=== PATIENT | female | born 1940 | race Caucasian/White ===

== ENCOUNTER 2023-03-13 07:23 | Outpatient (REF) | payer MEDICARE, SELFPAY ==
--- NOTE | ~2023-03-13 | XR_ITS ---
EXAMINATION: XR LUMBOSACRAL SPINE CLINICAL INFORMATION: Lower back pain. COMPARISON: None available. TECHNIQUE: AP and lateral views of the lumbar spine and lateral view of the lumbosacral junction. FINDINGS: There is bony demineralization. There is a moderate lumbar levoscoliosis. There is multi-level marked degenerative disc disease extending from T7-T8 through L5-S1, with some sparing of the T11-T12 disc space, which is well-maintained. At L3-L4, there is a 6 mm anterolisthesis. No acute fracture or spondylolisthesis is seen. There is well-maintained alignment status-post L4-L5 posterior fusion, with intact posterior fixator rods and pedicular screws. No hardware failure or loosening is seen. There is multi-level thoracolumbar spondylosis. The posterior elements are intact. 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 The paravertebral soft tissues are unremarkable. XR/XR lumbar spine 2-3V IMPRESSION: 1. There is multi-level marked thoracolumbar degenerative disc disease and spondylosis. Particular note is made of marked disc space narrowing and a 6 mm anterolisthesis at L3-L4. 2. There is well-maintained alignment status-post L4-L5 posterior fusion. No hardware failure or loosening is seen. 3. There is a moderate lumbar levoscoliosis.
--- NOTE | ~2023-03-13 | XR_ITS ---
EXAMINATION: XR KNEE, LEFT CLINICAL INFORMATION: Pain. COMPARISON: None available. TECHNIQUE: AP, lateral and sunrise views of the left knee are submitted. FINDINGS: Prosthetic components of the total knee arthroplasty are appropriately aligned without periprosthetic fracture or abnormal lucency. No component migration. No joint effusion. XR/XR knee LT 3V IMPRESSION: Appropriate alignment of the left total knee arthroplasty without evidence of complications.
--- NOTE | ~2023-03-13 | XR_ITS ---
EXAMINATION: XR HIP, LEFT CLINICAL INFORMATION: Pain. COMPARISON: None available. TECHNIQUE: AP and frog-leg lateral views of the left hip. FINDINGS: Prosthetic components of the bilateral total hip arthroplasties are appropriately aligned without periprosthetic fracture or abnormal lucency. No component migration. There are multiple pelvic phleboliths. Soft tissues are normal. XR/XR hip LT min 2V IMPRESSION: Appropriate alignment of the bilateral total hip arthroplasties, without surrounding abnormalities.
== END 2023-03-13 07:24 | disposition home or self-care (01) ==
LOC: HO.HOSX 07:23
PROVIDERS: Visit Provider Orthopaedic Surgery
DX: M25.562 Pain in left knee (principal); M25.552 Pain in left hip; M54.50 Low back pain, unspecified
CPT/HCPCS: 72100; 73502; 73562; 99212

== ENCOUNTER 2023-03-13 08:54 | Outpatient (AMB) | payer MEDICARE, SELFPAY ==
--- NOTE | 2023-03-13 09:05 | A.OFFVIS_ITS ---
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 Kapadia for her left leg/ knee pain. States she went to a concert and was sitting for a few hours. Garwin pain and numbness in leg when she got up. Hx of B/L knee replacement with Dr Kapadia in 2013. The patient has also undergone bilateral total hip replacement surgeries. The patient has undergone 2 low back surgeries in the past. The 1st was performed by Dr. Ferguson. The most recent surgery occurred approximately 2 years ago and was performed by Dr. Bonds. The patient does walk with a cane. She has taken Tylenol and anti-inflammatory medicines which gave her mild relief. She has done physical therapy exercises which gave her minimal relief. She is due to begin acupuncture treatments in the near future. Medication List - Last Reconciled 03/13/23 by Daniel Kapadia MD atorvastatin 40 mg PO DAILY carvedilol 6.25 mg PO BID dulaglutide (Trulicity) 3 mg subcut QWEEK fenofibrate 160 mg PO DAILY flash glucose sensor (FreeStyle Renaldo 2 Sensor kit) As directed gabapentin 100 mg PO BEDTIME glipizide 10 mg PO BID hydrochlorothiazide 25 mg PO DAILY hydrocortisone 2.5% appl topical losartan 100 mg PO DAILY nitrofurantoin monohyd/m-cryst 100 mg 1 cap PO BID omeprazole 20 mg PO DAILY Physical Exam Vital Signs: BMI result Body Mass Index 31.4 Const Other: Well-nourished well-developed very friendly female awake alert and oriented x3 in no acute distress Back/Spine/Pelvis Other: Low back examination shows left-sided paraspinal muscle tenderness, pain with range of motion, positive straight leg raise test on the left at 70 degrees Extrem Other: Bilateral lower extremity examination shows good capillary refill, no skin lesions noted, normal sensation light touch Bilateral hip examination shows that the surgical incisions are well healed, no erythema, minimal discomfort with range of motion, no tenderness over her bilateral bursa Bilateral knee examination shows that the surgical incisions are well healed, no erythema, full active extension and flexion to 120 degrees, her patellae track well Results Reviewed Results Reviewed: X-rays of the patient's lumbar spine taken today show a lumbar fusion with moderate to severe degenerative disc disease superior to the fusion, no acute bony abnormalities X-rays of the patient's left knee taken today show a total knee arthroplasty good position with no signs of loosening X-rays of the patient's left hip taken today show total hip arthroplasty in good position with no signs of loosening, no acute bony Assessment & Plan Assessment & Plan (1) Low back pain: Code(s): M54.50 - Low back pain, unspecified Plan Ms. Springer presents with low back pain which radiates into her left leg most likely due to degenerative disc disease versus possible lumbar stenosis. I had a lengthy discussion with the patient regarding the treatment options. The patient does not wish to get another MRI at this point. She does not wish to be real evaluated by the Neurosurgery team. She wishes to continue with her home exercise program and activity modifications. I did give her a prescription for a Medrol Dosepak to help with her symptoms. I will see her back in 2 months time for repeat clinical examination. She will contact me prior to that time should her symptoms worsen in any way. Feel free to call me at any time should questions regarding her management arise. I spent 25 minutes in reviewing the patient's records and imaging studies, seeing the patient and documenting in the medical record. Orders: Orders XR lumbar spine 2-3V Today M54.50 - Low back pain, unspecified XR hip LT min 2V Today M25.552 - Pain in left hip XR knee LT 3V Today M25.562 - Pain in left knee Medications: New methylprednisolone (Medrol (Marky)) PO PER PKG DIR 21 ea 0RF Coding Level of Care Code Est Pt Level 2 (61482) Diagnoses Low back pain M54.50
[2023-03-13 09:19] VITALS: BMI 31.4
== END 2023-03-13 09:38 | disposition home or self-care (01) ==
PROVIDERS: PCP Family Medicine; Visit Provider Orthopaedic Surgery
DX: M54.50 Low back pain, unspecified (principal)
CPT/HCPCS: 99212

== ENCOUNTER 2023-05-15 10:31 | Outpatient (AMB) | payer MEDICARE, SELFPAY ==
--- NOTE | 2023-05-15 10:32 | MHC.OFFVIS ---
Intake Intake Visit Reasons: OV-Left leg pain, below the knee-F/U Intake Note: This is an 82 year old female patient who presents for a follow up of her chronic low back pain. Patient states that she has recently started seeing an clinical trials data coordinator. She states that the treatments have given her mild relief. She does go for the treatments once per week. She continues to take gabapentin at night which gives her mild relief. Allergies acetaminophen [From Tylox] Allergy (Mild, Verified 05/15/23 10:43) unknown lisinopril Allergy (Mild, Verified 05/15/23 10:43) unknown oxycodone [From Tylox] Allergy (Mild, Verified 05/15/23 10:43) unknown Medication List - Last Reconciled 05/15/23 by Terri Orellana RN atorvastatin 40 mg PO DAILY carvedilol 6.25 mg PO BID dulaglutide (Trulicity) 3 mg subcut QWEEK fenofibrate 160 mg PO DAILY flash glucose sensor (FreeStyle Renaldo 2 Sensor kit) As directed gabapentin 100 mg PO BEDTIME glipizide 10 mg PO BID hydrochlorothiazide 25 mg PO DAILY hydrocortisone 2.5% appl topical insulin admin supplies As directed losartan 100 mg PO DAILY methylprednisolone (Medrol (Marky)) PO PER PKG DIR nitrofurantoin monohyd/m-cryst 100 mg 1 cap PO BID omeprazole 20 mg PO DAILY Physical Exam Const Other: Well-nourished well-developed very friendly female awake alert and oriented x3 in no acute distress Back/Spine/Pelvis Other: Low back examination shows bilateral paraspinal muscle tenderness, pain with range of motion, positive straight leg raise test bilaterally at 70 degrees Results Reviewed Results Reviewed: X-rays of the patient's lumbar spine show hardware from a previous fusion which is in good position, no signs of loosening, moderate to severe degenerative disc disease cephalad to the fusion Assessment & Plan Assessment & Plan (1) Low back pain: Code(s): M54.50 - Low back pain, unspecified Plan Ms. Springer presents with chronic low back pain due to degenerative disc disease as well as possible lumbar stenosis. I had a lengthy discussion with the patient regarding the treatment options. She does not wish to get MRI at this point. She will continue with her acupuncture treatments. I did increase her gabapentin as per her request. She will contact me prior to her follow-up appointment in 3 months should her symptoms worsen in any way. Feel free to call me at any time should questions regarding her orthopedic management arise. I spent 22 minutes in reviewing the patient's records and imaging studies, seeing the patient and documenting in the medical record. Medications: Changed From gabapentin 100 mg PO BEDTIME To gabapentin 200 mg (2 x 100 mg) PO BEDTIME 60 caps 3RF Coding Level of Care Code Est Pt Level 2 (23402) Diagnoses Low back pain M54.50
== END 2023-05-15 11:03 | disposition home or self-care (01) ==
PROVIDERS: PCP Family Medicine; Visit Provider Orthopaedic Surgery
DX: M54.50 Low back pain, unspecified (principal)
CPT/HCPCS: 99212

== ENCOUNTER → 2023-05-15 10:31 | Outpatient (BNVA) | payer MEDICARE, SELFPAY | PROVIDERS: PCP Family Medicine; Visit Provider Orthopaedic Surgery | DX: M54.50 Low back pain, unspecified (principal) | CPT/HCPCS: 99212 ==

== ENCOUNTER 2023-10-21 11:34 | Outpatient (AMB) | payer MEDICARE, SELFPAY ==
[2023-10-21 11:35] VITALS: BMI 31.4
--- NOTE | 2023-10-21 11:35 | A.OFFVIS_ITS ---
Intake Vital Signs 10/21/23 11:35 Height 4 ft 9 in Weight 145 lb BMI 31.4 Intake Visit Reasons: OV-Left Knee pain Intake Note: Alon is a 82 year old female who presents with complaints of intermittent discomfort in both of her knees after undergoing bilateral total knee replacement surgeries approximately 10 years ago. She denies any fevers or chills. She does walk with a cane when she is out of her home. The patient has also undergone bilateral total hip replacement surgeries as well as low back surgery by Dr. Bonds. She continues to walk for exercise. She does walk 2- 3000 steps several days per week. She denies any locking or giving way. She does not take any medicines for discomfort. Allergies acetaminophen [From Tylox] Allergy (Mild, Verified 10/21/23 11:48) unknown lisinopril Allergy (Mild, Verified 10/21/23 11:48) unknown oxycodone [From Tylox] Allergy (Mild, Verified 10/21/23 11:48) unknown Medication List - Last Reconciled 10/21/23 by Daniel Kapadia MD albuterol sulfate 90 mcg/actuation inhalation atorvastatin 40 mg PO DAILY carvedilol 6.25 mg PO BID dulaglutide (Trulicity) 3 mg subcut QWEEK fenofibrate 160 mg PO DAILY flash glucose sensor (FreeStyle Renaldo 2 Sensor kit) As directed gabapentin 200 mg (2 x 100 mg) PO BEDTIME glipizide 10 mg PO BID glipizide 5 mg PO BID hydrochlorothiazide 25 mg PO DAILY hydrocortisone 2.5% appl topical insulin admin supplies As directed insulin glargine U-300 conc (Toujeo Max U-300 SoloStar) 30 units subcut BEDTIME losartan 100 mg PO DAILY methylprednisolone (Medrol (Marky)) PO PER PKG DIR nitrofurantoin monohyd/m-cryst 100 mg 1 cap PO BID omeprazole 20 mg PO DAILY PFSH Surgical History (Updated 10/21/23 @ 11:45 by Ginna Richard CMA) History of hip surgery History of hip surgery Hx of knee surgery History of back surgery History of left knee surgery (~2013) Social History (Updated 10/21/23 @ 11:43 by Ginna Richard CMA) Patient Tobacco Use Status: Never used Tobacco Current occupational status: retired Current occupation: Left hand dominate Physical Exam Vital Signs: BMI result Body Mass Index 31.4 Const Other: Well-nourished well-developed very friendly female awake alert and oriented x3 in no acute distress Extrem Other: Bilateral lower extremity examination shows good capillary refill, no skin lesions noted, normal sensation light touch Bilateral knee examination shows that the surgical incisions are well healed, no erythema, full active extension and flexion 120 degrees, her patellae track well Assessment & Plan Assessment & Plan (1) Bilateral knee pain: Code(s): M25.561 - Pain in right knee; M25.562 - Pain in left knee Plan Ms. Springer presents with intermittent discomfort in both of his knees most likely due to scar tissue after undergoing bilateral total knee replacement surgeries as well as overuse and the aging process. Activity modifications were discussed at length with the patient. The patient will also continue with her home stretching program. She will contact me prior to her follow-up appointment in 3 months should her symptoms worsen in any way. Feel free to call me at any time should questions regarding her orthopedic management arise. I spent 22 minutes in reviewing the patient's records and imaging studies, seeing the patient and documenting in the medical record. Coding Level of Care Code Est Pt Level 2 (10349) Diagnoses Bilateral knee pain M25.561; M25.562
== END 2023-10-21 12:07 | disposition home or self-care (01) ==
PROVIDERS: PCP Family Medicine; Visit Provider Orthopaedic Surgery
DX: M25.561 Pain in right knee (principal); M25.562 Pain in left knee
CPT/HCPCS: 99213

== ENCOUNTER → 2023-10-21 11:34 | Outpatient (BNVA) | payer MEDICARE, SELFPAY | PROVIDERS: PCP Family Medicine; Visit Provider Orthopaedic Surgery | DX: M25.561 Pain in right knee (principal); M25.562 Pain in left knee; Z96.653 Presence of artificial knee joint, bilateral; Z96.643 Presence of artificial hip joint, bilateral | CPT/HCPCS: 99212 ==

== ENCOUNTER 2023-11-19 13:45 | Outpatient (AMB) | payer MEDICARE, SELFPAY ==
[2023-11-19 13:59] VITALS: BMI 31.4
--- NOTE | 2023-11-19 13:59 | A.OFFVIS_ITS ---
Vital Signs 11/19/23 13:59 Height 4 ft 9 in Weight 145 lb BMI 31.4 Intake Visit Reasons: nprob-Lt hand ganglion cyst Intake Note: Alon 83 yr old - hand dominant female presents today for a new problem visit for her left hand ganglion cyst. States cyst is on her radial aspect of wrist and she noticed its growth since July 2023. Reports she has pain and discomfort when using her cane or applying pressure. States she would like to discuss aspiration vs surgery. Denies numbness or tingling. Allergies acetaminophen [From Tylox] Allergy (Mild, Verified 11/19/23 14:05) unknown lisinopril Allergy (Mild, Verified 11/19/23 14:05) unknown oxycodone [From Tylox] Allergy (Mild, Verified 11/19/23 14:05) unknown HPI HPI nprob-Lt hand ganglion cyst: Details: Alon is an 83 year old left hand dominant Diabetic woman who presents with chief complaint of left radial wrist pain, and an associated mass She reports having a mass on her left radial wrist, and says this has grown in size over the last 4 months. She has pain on the radial aspect of her left wrist when trying to use her cane in her left hand. She denies any numbness or tingling. She denies any prior treatment options. She is a Diabetic, and says this is well-controlled [facility] Surgical History History of hip surgery History of hip surgery Hx of knee surgery History of back surgery History of left knee surgery (~2013) Social History Patient Tobacco Use Status: Never used Tobacco Current occupational status: retired Current occupation: Left hand dominate Review of Systems Const All systems reviewed & are unremarkable except as noted in HPI and below Physical Exam Vital Signs: BMI result Body Mass Index 31.4 Const General: cooperative, healthy appearing and no acute distress Orientation/consciousness: patient oriented x3 HEENT Head: Yes normocephalic and Yes atraumatic Eyes EOM: EOMs intact bilaterally Resp Effort & Inspection: normal respiratory effort and able to speak in complete sentences Cardio Jugular venous distension: no JVD Skin General skin exam: turgor normal Rashes: no rashes Neuro General: patient oriented x3 Extrem Other: Evaluation of Left Upper Extremity: The patient is alert, oriented, and in no acute distress Neuro: Median, Ulnar, Radial nerves motor and sensory intact and sensation is normal to the tips of all digits Vascular: Cap refill brisk ROM: She can make a fist and extend all her digits Skin: No lacerations or abrasions. General: No Ecchymosis. No Erythema or evidence of infection. There is a soft mass or fullness essentially right over the left snuffbox. This appears most consistent with a possible lipoma as opposed to a ganglion cyst. It is not tender and is not what is bothering this patient. What is bothering her the most is her area of maximal tenderness over the 1st dorsal compartment Positive Jordin test on the left Negative Jordin test on the right Psych Appearance: grossly normal Affect: normal affect Attitude: cooperative Office Procedures Fracture Care Details: No fracture, injection Fracture Billing Code: Fracture Billing Code Assessment & Plan Assessment & Plan (1) De Quervain's tenosynovitis, left: Code(s): M65.4 - Radial styloid tenosynovitis [de Quervain] Category: Medical (2) Diabetes mellitus: Code(s): E11.9 - Type 2 diabetes mellitus without complications Category: Medical Plan Assessment & Plan: 1. Left De Quervains Tenosynovitis I educated her about this condition I discussed operative & non-operative treatment options The patient would like to proceed with an injection I discussed activity modification, she should limit or avoid any heavy or repetitive pinching, gripping, or scissoring activities She was fitted for a Comfort Cool brace to wear with daily activity. Injection #1: The risks and benefits of a steroid injection including but not limited to risk of damage to blood vessels, nerves, tendons, infection, skin bleaching, failure to improve symptoms, increased pain, and possible need for further injections or other intervention were discussed with the patient and the patient wishes to proceed with the steroid injection. Once consent was obtained, I sterilely prepped the area over the 1st dorsal compartment of the left thumb. I then injected the 1st dorsal compartment with a combination of 1 mL of dexamethasone (4mg/ml), and 1% lidocaine. The patient tolerated the procedure well with no complications and good resolution of their symptoms prior to leaving clinic. If the patient continues to have pain 6-8 weeks following this injection, they may call to schedule appointment to discuss alternative treatment options She will follow up prn Scribed for Ana Beasley MD by Dipak Rachel, medical malpractice paralegal, on 11/19/23 at 2:30 PM, EST. Coding Level of Care Code New Pt Level 3 (17719) Diagnoses De Quervain's tenosynovitis, left M65.4 Diabetes mellitus E11.9 CPT Codes Fracture Care - Fracture Billing Code: Fracture Billing Code ([id number])
== END 2023-11-19 15:10 | disposition home or self-care (01) ==
PROVIDERS: PCP Family Medicine; Visit Provider Orthopaedic Surgery
DX: M65.4 Radial styloid tenosynovitis [de Quervain] (principal); E11.9 Type 2 diabetes mellitus without complications
CPT/HCPCS: 20550; 99203

== ENCOUNTER → 2023-11-19 13:45 | Outpatient (BNVA) | payer MEDICARE, SELFPAY | PROVIDERS: PCP Family Medicine; Visit Provider Orthopaedic Surgery | DX: M65.4 Radial styloid tenosynovitis [de Quervain] (principal); E11.9 Type 2 diabetes mellitus without complications | CPT/HCPCS: 20550; 99202; J1100 ==

== ENCOUNTER 2024-01-29 09:14 | Outpatient (REF) | payer MEDICARE, SELFPAY ==
--- NOTE | ~2024-01-29 | XR_ITS ---
EXAMINATION: XR KNEE, LEFT CLINICAL INFORMATION: Knee pain. COMPARISON: X-ray 03/13/2023. TECHNIQUE: Four views of the left knee. FINDINGS: Status post total knee arthroplasty with appropriate alignment of the prosthetic components. No periprosthetic fracture or abnormal lucency is identified. Trace suprapatellar joint fluid. XR/XR knee LT 3V IMPRESSION: Appropriate, stable position and alignment of the left total knee arthroplasty without radiographic evidence of complications. Study is assigned for dictation on February 19, 2024
== END 2024-01-29 09:15 | disposition home or self-care (01) ==
LOC: HO.HOSX 09:14
PROVIDERS: Visit Provider Orthopaedic Surgery
DX: M25.562 Pain in left knee (principal); Z96.653 Presence of artificial knee joint, bilateral; Z96.643 Presence of artificial hip joint, bilateral
CPT/HCPCS: 73562; 99212

== ENCOUNTER 2024-01-29 13:58 | Outpatient (AMB) | payer MEDICARE, SELFPAY ==
--- NOTE | 2024-01-29 14:21 | MHC.OFFVIS ---
Vital Signs 01/29/24 14:23 Height 4 ft 9 in Weight 145 lb BMI 31.4 Intake Visit Reasons: ov-Lt knee pain Intake Note: Alon is a 82 year old female who presents with complaints of intermittent discomfort in both of her knees after undergoing bilateral total knee replacement surgeries approximately 10 years ago. She denies any fevers or chills. She does walk with a cane when she is out of her home. The patient has also undergone bilateral total hip replacement surgeries as well as low back surgery by Dr. Bonds. She states that her most recent back surgery was approximately 5 years ago. She does have intermittent pain in her low back as well. She continues to walk for exercise. She does walk 2-3000 steps several days per week. She denies any locking or giving way. She takes Tylenol, Advil and gabapentin for her discomfort which gave her mild relief. She wishes to hold off on further surgeries if at all possible. Allergies acetaminophen [From Tylox] Allergy (Mild, Verified 01/29/24 14:23) unknown lisinopril Allergy (Mild, Verified 01/29/24 14:23) unknown oxycodone [From Tylox] Allergy (Mild, Verified 01/29/24 14:23) unknown [facility] Surgical History History of hip surgery History of hip surgery Hx of knee surgery History of back surgery History of left knee surgery (~2013) Social History Patient Tobacco Use Status: Never used Tobacco Current occupational status: retired Current occupation: Left hand dominate Physical Exam Vital Signs: BMI result Body Mass Index 31.4 Const Other: Well-nourished well-developed very friendly female awake alert and oriented x3 in no acute distress Extrem Other: Bilateral lower extremity examination shows good capillary refill, no skin lesions noted, normal sensation light touch Left knee examination shows that the surgical incision is well healed, no erythema, full active extension and flexion to 120 degrees with no discomfort, her patella tracks well Results Reviewed Results Reviewed: X-rays of the patient's left knee taken today show a total knee arthroplasty in good position with no signs of loosening, no acute bony abnormalities Assessment & Plan Assessment & Plan (1) Left knee pain: Code(s): M25.562 - Pain in left knee Category: Medical Plan Ms. Springer continues to do fairly well after undergoing bilateral total knee replacement surgeries as well as bilateral total hip replacement surgeries. She will continue with her home exercise program. She does know to take antibiotics before any dental work. The patient does have chronic low back pain after undergoing low back surgeries by Dr. Ferguson and Dr. Bonds. I will arrange for the patient to have a consultation with Dr. Cervantes from our pain management Department here at [facility]. The patient will follow-up as instructed. She will contact me prior to her annual follow-up appointment should any questions or concerns arise. Feel free to call me at any time should questions regarding her orthopedic management arise. I spent 21 minutes in reviewing the patient's records and imaging studies, seeing the patient and documenting in the medical record. Orders: Orders XR knee LT 3V Today M25.562 - Pain in left knee Referrals Pain Management Referral M54.50 - Low back pain, unspecified Coding Level of Care Code Est Pt Level 3 (00500) Diagnoses Left knee pain M25.562
[2024-01-29 14:23] VITALS: BMI 31.4
== END 2024-01-29 14:41 | disposition home or self-care (01) ==
PROVIDERS: PCP Family Medicine; Visit Provider Orthopaedic Surgery
DX: M25.562 Pain in left knee (principal); Z96.653 Presence of artificial knee joint, bilateral
CPT/HCPCS: 99213

== ENCOUNTER 2024-02-05 08:10 | Outpatient (AMB) | payer MEDICARE, SELFPAY ==
[2024-02-05 08:19] VITALS: BP 177/93; PULSE 79; O2SAT 97; BMI 30.7
--- NOTE | 2024-02-05 08:19 | A.OFFVIS_ITS ---
Vital Signs 02/05/24 08:19 Height 4 ft 10 in Weight 147 lb BMI 30.7 BP 177/93 H Blood Pressure Location Rt brachial Position Sitting Pulse 79 Pulse Source Pulse Oximeter Pulse Oximetry (%) 97 Oxygen Delivery Method Room Air Intake Visit Reasons: Chronic low back pain Allergies acetaminophen [From Tylox] Allergy (Mild, Verified 02/05/24 08:21) unknown lisinopril Allergy (Mild, Verified 02/05/24 08:21) unknown oxycodone [From Tylox] Allergy (Mild, Verified 02/05/24 08:21) unknown Medication List - Last Reconciled 02/05/24 by Kylah Ayers acetaminophen (Tylenol) 650 mg PO Q6H PRN albuterol sulfate 90 mcg/actuation inhalation atorvastatin 40 mg PO DAILY carvedilol 6.25 mg PO BID cholecalciferol (vitamin D3) (Vitamin D3) 25 mcg PO DAILY dulaglutide (Trulicity) 3 mg subcut QWEEK fenofibrate 160 mg PO DAILY flash glucose sensor (FreeStyle Renaldo 2 Sensor kit) As directed gabapentin 200 mg (2 x 100 mg) PO BEDTIME gabapentin 200 mg PO DAILY glipizide 10 mg PO BID hydrochlorothiazide 25 mg PO DAILY insulin admin supplies As directed insulin glargine U-300 conc (Toujeo Max U-300 SoloStar) 26 units subcut DAILY losartan 100 mg PO DAILY multivitamin 1 tab PO DAILY omeprazole 20 mg PO DAILY HPI HPI Chronic low back pain: Details: [age] year old female referred by Dr. Kapadia for evaluation of low back and bilateral knee pain. History is notable for L4-5 fusion and L3-[address] Bonds. Her last back surgery was 5 years ago. Today she reports 7 to 8/10 intensity pain in her lower back, most pronounced at the right iliac region. She denies significant radicular symptoms down the legs. Pain is worse with movement. It does not wake her up at night but interferes with her ADLs. Her last MRI was more than 5 years ago. She reports wobbliness on her legs, which necessitated the use of a cane. She denies any history of falls. Her knee pain has been present since her bilateral knee replacements. She reports some tightness and limited range of motion on the left side. The pain is described as an aching numbing pain that is constant 4/10 intensity. She describes the pain as ?bearable at this time but that she would like it to redressed in due course. She is taking acetaminophen, gabapentin. [facility] Surgical History History of hip surgery History of hip surgery Hx of knee surgery History of back surgery History of left knee surgery (~2013) Social History Patient Tobacco Use Status: Never used Tobacco Current occupational status: retired Current occupation: Left hand dominate Physical Exam Vital Signs: Last Vital Signs Pulse 79 02/05/24 08:19 BP 177/93 H 02/05/24 08:19 Pulse Ox 97 02/05/24 08:19 Oxygen Delivery Method Room Air 02/05/24 08:19 BMI result Body Mass Index 30.7 On exam today: Appears afebrile. Alert and oriented. Mood and affect appropriate. Follows and participates in conversation appropriately. Respiratory effort is unlabored. Able to transition from sit to stand unassisted. Ambulates with bilaterally normal heel strike and toe off with help of a cane. Able to stand and walk on toes and heels. Tenderness to palpation overlying the right buttock and iliac region. Mild tenderness to palpation overlying the SI joint. SI joint provocation maneuvers limited due to limited range of motion of the hip and knees secondary to prior replacement surgeries. Results Reviewed Results Reviewed: EXAMINATION: XR LUMBOSACRAL SPINE CLINICAL INFORMATION: Lower back pain. COMPARISON: None available. TECHNIQUE: AP and lateral views of the lumbar spine and lateral view of the lumbosacral junction. FINDINGS: There is bony demineralization. There is a moderate lumbar levoscoliosis. There is multi-level marked degenerative disc disease extending from T7-T8 through L5-S1, with some sparing of the T11-T12 disc space, which is well-maintained. At L3-L4, there is a 6 mm anterolisthesis. No acute fracture or spondylolisthesis is seen. There is well-maintained alignment status-post L4-L5 posterior fusion, with intact posterior fixator rods and pedicular screws. No hardware failure or loosening is seen. There is multi-level thoracolumbar spondylosis. The posterior elements are intact. 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 The paravertebral soft tissues are unremarkable. XR/XR lumbar spine 2-3V IMPRESSION: 1. There is multi-level marked thoracolumbar degenerative disc disease and spondylosis. Particular note is made of marked disc space narrowing and a 6 mm anterolisthesis at L3-L4. 2. There is well-maintained alignment status-post L4-L5 posterior fusion. No hardware failure or loosening is seen EXAMINATION: XR KNEE, LEFT CLINICAL INFORMATION: Pain. COMPARISON: None available. TECHNIQUE: AP, lateral and sunrise views of the left knee are submitted. FINDINGS: Prosthetic components of the total knee arthroplasty are appropriately aligned without periprosthetic fracture or abnormal lucency. No component migration. No joint effusion. XR/XR knee LT 3V IMPRESSION: Appropriate alignment of the left total knee arthroplasty without evidence of complications. Assessment & Plan Assessment & Plan (1) Post laminectomy syndrome: Code(s): M96.1 - Postlaminectomy syndrome, not elsewhere classified Category: Medical (2) Sacroiliac joint dysfunction: Code(s): M53.3 - Sacrococcygeal disorders, not elsewhere classified Category: Medical (3) Chronic knee pain after total replacement of both knee joints: Code(s): M25.561 - Pain in right knee; M25.562 - Pain in left knee; G89.28 - Other chronic postprocedural pain; Z96.653 - Presence of artificial knee joint, bilateral Category: Medical Plan She has multifactorial issues in her lower back that might be precipitating her low back pain and right iliac pain. I discussed a trial of spinal cord st imulation as a potential catch all therapy for her various pain generators. Short of SCS, we can consider a diagnostic sacroiliac joint injection to rule out a potential common source of low back pain following prior lumbar fusion surgery. I will schedule her for a diagnostic right sacroiliac joint injection as a 1st step in her management. I will also place a referral for behavioral assessment via [facility] point in anticipation of an SCS trial with a [employer] device. Patient expressed understanding and is in agreement with the plan. Justification for interventional therapy: * Patient with average pain > 6/10 * Patient has exhausted conservative therapy including physical therapy and oral medications. Coding Level of Care Code New Pt Level 4 (36984) Diagnoses Post laminectomy syndrome M96.1 Sacroiliac joint dysfunction M53.3 Chronic knee pain after total replacement of both knee joints M25.561; M25.562; G89.28; Z96.650
== END 2024-02-05 09:00 | disposition home or self-care (01) ==
PROVIDERS: PCP Family Medicine; Visit Provider Internal Medicine
DX: M96.1 Postlaminectomy syndrome, not elsewhere classified (principal); M53.3 Sacrococcygeal disorders, not elsewhere classified; M25.561 Pain in right knee; M25.562 Pain in left knee; G89.28 Other chronic postprocedural pain; Z96.653 Presence of artificial knee joint, bilateral
CPT/HCPCS: 99204

== ENCOUNTER → 2024-02-05 08:10 | Outpatient (BNVA) | payer MEDICARE, SELFPAY | PROVIDERS: PCP Family Medicine; Visit Provider Internal Medicine | DX: M96.1 Postlaminectomy syndrome, not elsewhere classified (principal); M53.3 Sacrococcygeal disorders, not elsewhere classified; M25.561 Pain in right knee; M25.562 Pain in left knee; G89.28 Other chronic postprocedural pain; Z96.653 Presence of artificial knee joint, bilateral | CPT/HCPCS: 99202 ==

== ENCOUNTER 2024-02-11 12:43 | Outpatient (AMB) | payer MEDICARE, SELFPAY ==
--- NOTE | 2024-02-11 12:51 | A.OFFVIS_ITS ---
Vital Signs 02/11/24 12:56 Height 4 ft 10 in Weight 147 lb BMI 30.7 Intake Visit Reasons: OV- Lt hand ganglion cyst f/u Intake Note: Alon an 83 year old female who presents today for a follow up of left hand ganglion cyst. Patient reports last injection did not provide her with any relief. States her pain is radiates from the base of her thumb to her wrist. Allergies acetaminophen [From Tylox] Allergy (Mild, Verified 02/11/24 12:59) unknown lisinopril Allergy (Mild, Verified 02/11/24 12:59) unknown oxycodone [From Tylox] Allergy (Mild, Verified 02/11/24 12:59) unknown HPI HPI OV- Lt hand ganglion cyst f/u: Details: Alon is an 83 year old left hand dominant Diabetic woman who returns to discuss her left De Quervain;s Tenosynovitis, S/P injection on 11/19/23. She says this injection was not helpful and she continues to have pain radiating from her wrist to the base of her thumb. She says this occurs primarily when she walks using her cane in her left hand. She denies any numbness or tingling. She denies any prior treatment options. She is a Diabetic, and says this is well-controlled [facility] Surgical History History of hip surgery History of hip surgery Hx of knee surgery History of back surgery History of left knee surgery (~2013) Social History Patient Tobacco Use Status: Never used Tobacco Current occupational status: retired Current occupation: Left hand dominate Physical Exam Vital Signs: BMI result Body Mass Index 30.7 Extrem Other: Evaluation of Left Upper Extremity: The patient is alert, oriented, and in no acute distress Neuro: Median, Ulnar, Radial nerves motor and sensory intact and sensation is normal to the tips of all digits Vascular: Cap refill brisk ROM: She can make a fist and extend all her digits There is a soft mass or fullness essentially right over the left snuffbox. This appears most consistent with a possible lipoma as opposed to a ganglion cyst. It is not tender and is not what is bothering this patient. What is bothering her the most is her area of maximal tenderness over the 1st dorsal compartment Negative Jordin test on the left Negative Jordin test on the right Office Procedures Fracture Care Details: No fracture, injection Fracture Billing Code: Fracture Billing Code Assessment & Plan Assessment & Plan (1) De Quervain's tenosynovitis, left: Code(s): M65.4 - Radial styloid tenosynovitis [de Quervain] Category: Medical (2) Diabetes mellitus: Code(s): E11.9 - Type 2 diabetes mellitus without complications Category: Medical Plan Assessment & Plan: 1. Left De Quervains Tenosynovitis, S/P injection Date of injection: 11/19/23 Negative Jordin test I educated her about this condition She found no relief from her steroid injection, and continues to have radial- sided wrist pain, worse when using her cane in her left hand. Interestingly she has a negative Jordin test today in clinic, which is a change from her last appointment. I discussed operative & non-operative treatment options The patient would like to proceed with a repeat injection today I discussed activity modification, she should limit or avoid any heavy or repetitive pinching, gripping, or scissoring activities She will continue to wear her Comfort Cool brace with daily activity. Injection #1: The risks and benefits of a steroid injection including but not limited to risk of damage to blood vessels, nerves, tendons, infection, skin bleaching, failure to improve symptoms, increased pain, and possible need for further injections or other intervention were discussed with the patient and the patient wishes to proceed with the steroid injection. Once consent was obtained, I sterilely prepped the area over the 1st dorsal compartment of the left thumb. I then injected the 1st dorsal compartment with a combination of 1 mL of dexamethasone (4mg/ml), and 1% lidocaine. The patient tolerated the procedure well with no complications and good resolution of their symptoms prior to leaving clinic. If the patient continues to have pain 6-8 weeks following this injection, they may call to schedule appointment to discuss possible surgical intervention. She can follow up prn Scribed for Ana Beasley MD by Dipak Rachel coroner/medical examiner, on 02/11/24 at 1:20 PM, EST. Coding Level of Care Code Est Pt Level 3 (42655) Diagnoses De Quervain's tenosynovitis, left M65.4 Diabetes mellitus E11.9 CPT Codes Fracture Care - Fracture Billing Code: Fracture Billing Code ([id number])
[2024-02-11 12:56] VITALS: BMI 30.7
== END 2024-02-11 13:48 | disposition home or self-care (01) ==
PROVIDERS: PCP Family Medicine; Visit Provider Orthopaedic Surgery
DX: M65.4 Radial styloid tenosynovitis [de Quervain] (principal); E11.9 Type 2 diabetes mellitus without complications
CPT/HCPCS: 20550; 99213

== ENCOUNTER → 2024-02-11 12:43 | Outpatient (BNVA) | payer MEDICARE, SELFPAY | PROVIDERS: PCP Family Medicine; Visit Provider Orthopaedic Surgery | DX: M65.4 Radial styloid tenosynovitis [de Quervain] (principal); E11.9 Type 2 diabetes mellitus without complications | CPT/HCPCS: 20550; 99212; J1100 ==

== ENCOUNTER 2024-02-19 06:14 | Outpatient (REF) | payer MEDICARE, SELFPAY ==
--- NOTE | ~2024-02-19 | FL_ITS ---
EXAMINATION: XR FLUOROSCOPY WITH IMAGES CLINICAL INFORMATION: Sacrococcygeal disorders, not elsewhere specified. COMPARISON: Lumbar spine x-rays 03/13/2023. TECHNIQUE: Fluoroscopy provided to: Dr. Cervantes Fluoroscopy time: 0.1 minutes DAP: 0.0202 mGycm2 Images: 1 FINDINGS: Solitary coned-down lateral image of the sacrum/right SI joint shows needle in place within the right SI joint. FL/FL guidance in treatment room IMPRESSION: Fluoroscopic guidance. Please refer to the full operative report for details. Electronically signed by: Brayden Sauceda MD 04/16/2024 03:41 PM EDT Workstation: [id number]
== END 2024-02-19 06:15 | disposition home or self-care (01) ==
LOC: CF 06:14
PROVIDERS: Visit Provider Internal Medicine
DX: M53.3 Sacrococcygeal disorders, not elsewhere classified (principal)
CPT/HCPCS: 27096; J2795

== ENCOUNTER 2024-02-19 10:42 | Outpatient (AMB) | payer MEDICARE, SELFPAY ==
[2024-02-19 10:45] VITALS: BP 107/63; PULSE 80; RESP 18; O2SAT 97
[2024-02-19 11:35] VITALS: BP 138/69; PULSE 76; RESP 17; O2SAT 98
--- NOTE | 2024-02-19 11:38 | MHC.OFFVIS ---
Vital Signs 02/19/24 10:45 02/19/24 11:35 BP 107/63 138/69 Blood Pressure Location Lt brachial Lt brachial Position Sitting Sitting Respiration 18 17 Pulse 80 76 Pulse Source Pulse Oximeter Pulse Oximeter Pulse Oximetry (%) 97 98 Oxygen Delivery Method Room Air Room Air Comment Pre-op Post-op Intake Visit Reasons: Right Dx SIJ inj Allergies acetaminophen [From Tylox] Allergy (Mild, Verified 02/11/24 12:59) unknown lisinopril Allergy (Mild, Verified 02/11/24 12:59) unknown oxycodone [From Tylox] Allergy (Mild, Verified 02/11/24 12:59) unknown HPI HPI Right Dx SIJ inj: Details: Patient presents for scheduled procedure. Denies any recent cough, cold, infection, fever or other significant changes in medical history since last office visit. [facility] Surgical History History of hip surgery History of hip surgery Hx of knee surgery History of back surgery History of left knee surgery (~2013) Social History Patient Tobacco Use Status: Never used Tobacco Current occupational status: retired Current occupation: Left hand dominate Physical Exam Vital Signs: Last Vital Signs Pulse 76 02/19/24 11:35 Resp 17 02/19/24 11:35 BP 138/69 02/19/24 11:35 Pulse Ox 98 02/19/24 11:35 Oxygen Delivery Method Room Air 02/19/24 11:35 Office Procedures Joint Injection/Aspiration Joint Injection/Aspiration Details: Sacroiliac Joint Injection, RIGHT The procedure, its benefits, and its risks were explained and written informed consent was obtained from the patient. Immediately prior to starting the procedure, a time-out safety check was conducted. The patient's identification, procedure name, procedure site, and procedure laterality were confirmed with the patient. ? Patient was placed prone on the fluoroscopy table and the lumbosacral area was prepped using ChloraPrep and draped with sterile draped in standard fashion. The C-arm was rotated in a contralateral oblique fashion until the medial border of the iliac crest no longer foreshadowed the posterior sacroiliac joint line. The skin and subcutaneous tissue was anesthetized using 1 mL of 0.75% plain lidocaine with 1.5-inch 25-gauge needle in the middle region of the joint line.? A 3.5-inch 22-gauge spinal needle with small bend on the tip was slowly advanced towards the joint line, coaxial to the x-ray beam. Once bony content was obtained, the needle was easily slid into the intra-articular space.? Intra-articular needle position was confirmed using lateral fluoroscopy.? A total volume of 2.5mL of solution containing 0.5% of ropivacaine was injected intra-articularly. The stylet was reinserted and needle was removed. The patient tolerated the procedure well. Patient denied any lower extremity weakness or numbness. Patient was observed for 30 min and was discharged after fulfilling the standard discharge criteria. Coding 44310 - Sacroiliac Procedure code (CPT) selection complete Assessment & Plan Assessment & Plan (1) Sacroiliac joint dysfunction: Code(s): M53.3 - Sacrococcygeal disorders, not elsewhere classified Category: Medical Plan Patient is status post right sacroiliac joint injection. Patient tolerated procedure well and was discharged home in stable condition with discharge instructions. All questions were answered. We will follow-up via telephone or in clinic to assess response to therapy. A follow-up appointment was made during today's visit. Orders: Orders FL guidance in treatment room Today M53.3 - Sacrococcygeal disorders, not elsewhere classified Coding Level of Care Code Procedure Only Diagnoses Sacroiliac joint dysfunction M53.3 CPT Codes Coding - Joint 9: 71147 - Sacroiliac ([id number])
== END 2024-02-19 11:35 | disposition home or self-care (01) ==
LOC: HO.PMCPRC 10:42
PROVIDERS: PCP Family Medicine; Visit Provider Internal Medicine
DX: M53.3 Sacrococcygeal disorders, not elsewhere classified (principal)
CPT/HCPCS: 27096

== ENCOUNTER 2024-02-23 10:27 | Outpatient (AMB) | payer MEDICARE, SELFPAY ==
--- NOTE | 2024-02-23 10:59 | A.OFFVIS_ITS ---
Vital Signs 02/23/24 11:00 Height 4 ft 10 in Weight 147 lb BMI 30.7 BP 140/62 H Blood Pressure Location Lt brachial Position Sitting Respiration 14 Pulse 88 Pulse Source Pulse Oximeter Pulse Oximetry (%) 96 Oxygen Delivery Method Room Air Intake Visit Reasons: s/p right Dx SIJ inj Allergies acetaminophen [From Tylox] Allergy (Mild, Verified 02/23/24 11:03) unknown lisinopril Allergy (Mild, Verified 02/23/24 11:03) unknown oxycodone [From Tylox] Allergy (Mild, Verified 02/23/24 11:03) unknown Medication List - Last Reconciled 02/23/24 by Juanis Gilliland LPN acetaminophen (Tylenol) 650 mg PO Q6H PRN albuterol sulfate 90 mcg/actuation inhalation amoxicillin 2,000 mg (4 x 500 mg) PO ONCE 1 day atorvastatin 40 mg PO DAILY carvedilol 6.25 mg PO BID cholecalciferol (vitamin D3) (Vitamin D3) 25 mcg PO DAILY dulaglutide (Trulicity) 3 mg subcut QWEEK fenofibrate 160 mg PO DAILY flash glucose sensor (FreeStyle Renaldo 2 Sensor kit) As directed gabapentin 200 mg (2 x 100 mg) PO BEDTIME glipizide 10 mg PO BID hydrochlorothiazide 25 mg PO DAILY insulin admin supplies As directed insulin glargine U-300 conc (Toujeo Max U-300 SoloStar) 26 units subcut DAILY losartan 100 mg PO DAILY multivitamin 1 tab PO DAILY omeprazole 20 mg PO DAILY HPI HPI s/p right Dx SIJ inj: Details: 83-year-old female who presents today to the office for status post right diagnostic SIJ injection. The patient reports 100% relief following the procedure for four hours. Her pain symptoms have not been worse since the procedure. She is amenable to proceed with the cortisone injection. She received a call from [facility] for psychological evaluation, but she deferred evaluation for the implant device.? Past procedures 02/19/24: Sacroiliac Joint Injection, RIGHT: 100% relief for about four hours. [facility] Surgical History History of hip surgery History of hip surgery Hx of knee surgery History of back surgery History of left knee surgery (~2013) Social History Patient Tobacco Use Status: Never used Tobacco Current occupational status: retired Current occupation: Left hand dominate Review of Systems Const All systems reviewed & are unremarkable except as noted in HPI and below Physical Exam Vital Signs: Last Vital Signs Pulse 88 02/23/24 11:00 Resp 14 02/23/24 11:00 BP 140/62 H 02/23/24 11:00 Pulse Ox 96 02/23/24 11:00 Oxygen Delivery Method Room Air 02/23/24 11:00 BMI result Body Mass Index 30.7 General: Appears afebrile. Alert and oriented. Mood and affect appropriate. Follows and participates in conversation appropriately. Respiratory effort is unlabored. Able to transition from sit to stand unassisted. Ambulates with bilaterally normal heel strike and toe off. Results Reviewed Results Reviewed: No imaging is available for review. Assessment & Plan Assessment & Plan (1) Sacroiliac joint dysfunction: Code(s): M53.3 - Sacrococcygeal disorders, not elsewhere classified Category: Medical Plan Will schedule her for a right therapeutic sacroiliac joint injection. Discussed the risks and benefits of the procedure with the patient in detail. All questions were answered. The patient is on board with the plan. Justification for interventional therapy: ? Patient with average pain > 6/10 ? Patient has exhausted conservative therapy ? Patient unable to tolerate physical therapy due to pain. ? Diagnostic injection provided greater than 80% positive response . Patient has a good understanding of their pain condition and has appropriate mental and social support Scribed for Dr. Cervantes by Paolo Samson, medical technologist generalist, on 02/23/2024. I, Dr. Cervantes, have personally reviewed and agree with the information entered by the scribe. Coding Level of Care Code Est Pt Level 3 (02714) Diagnoses Sacroiliac joint dysfunction M53.3
[2024-02-23 11:00] VITALS: BP 140/62; PULSE 88; RESP 14; O2SAT 96; BMI 30.7
== END 2024-02-23 11:15 | disposition home or self-care (01) ==
LOC: HO.PMC 10:27
PROVIDERS: PCP Family Medicine; Visit Provider Internal Medicine
DX: M53.3 Sacrococcygeal disorders, not elsewhere classified (principal)
CPT/HCPCS: 99213

== ENCOUNTER → 2024-02-23 10:27 | Outpatient (BNVA) | payer MEDICARE, SELFPAY | PROVIDERS: PCP Family Medicine; Visit Provider Internal Medicine | DX: M53.3 Sacrococcygeal disorders, not elsewhere classified (principal) | CPT/HCPCS: 99212 ==

== ENCOUNTER 2024-03-04 07:51 | Outpatient (REF) | payer MEDICARE, SELFPAY | END 2024-03-04 07:52 | disposition home or self-care (01) | LOC: CF 07:51 | PROVIDERS: Visit Provider Internal Medicine | DX: M53.3 Sacrococcygeal disorders, not elsewhere classified (principal) | CPT/HCPCS: 27096; J2795; J3301 ==

== ENCOUNTER 2024-03-04 10:18 | Outpatient (AMB) | payer MEDICARE, SELFPAY ==
--- NOTE | 2024-03-04 10:18 | A.OFFVIS_ITS ---
Vital Signs 03/04/24 11:18 03/04/24 11:19 Height 4 ft 10 in 4 ft 10 in Weight 147 lb 147 lb BMI 30.7 30.7 BP 150/56 H 126/80 Blood Pressure Location Lt brachial Lt brachial Position Sitting Sitting Respiration 14 14 Pulse 76 74 Pulse Source Pulse Oximeter Pulse Oximeter Pulse Oximetry (%) 95 96 Oxygen Delivery Method Room Air Room Air Comment pre-op post-op Intake Visit Reasons: Right theraputic SIJ inj Allergies acetaminophen [From Tylox] Allergy (Mild, Verified 03/04/24 11:20) unknown lisinopril Allergy (Mild, Verified 03/04/24 11:20) unknown oxycodone [From Tylox] Allergy (Mild, Verified 03/04/24 11:20) unknown HPI HPI Right theraputic SIJ inj: Details: Patient presents for scheduled procedure. Denies any recent cough, cold, infection, fever or other significant changes in medical history since last office visit. COUNT INCLUDES THE [facility] Surgical History History of hip surgery History of hip surgery Hx of knee surgery History of back surgery History of left knee surgery (~2013) Social History Patient Tobacco Use Status: Never used Tobacco Current occupational status: retired Current occupation: Left hand dominate Physical Exam Vital Signs: Last Vital Signs Pulse 74 03/04/24 11:19 Resp 14 03/04/24 11:19 BP 126/80 03/04/24 11:19 Pulse Ox 96 03/04/24 11:19 Oxygen Delivery Method Room Air 03/04/24 11:19 BMI result Body Mass Index 30.7 Office Procedures Joint Injection/Aspiration Joint Injection/Aspiration Details: Sacroiliac Joint Injection, Right The procedure, its benefits, and its risks were explained and written informed consent was obtained from the patient. Immediately prior to starting the procedure, a time-out safety check was conducted. The patient's identification, procedure name, procedure site, and procedure laterality were confirmed with the patient. ? Patient was placed prone on the fluoroscopy table and the lumbosacral area was prepped using ChloraPrep and draped with sterile drapein standard fashion. The C-arm was rotated in a contralateral oblique fashion until the medial border of the iliac crest no longer foreshadowed the posterior sacroiliac joint line. The skin and subcutaneous tissue was anesthetized using 1 mL of 0.75% plain lidocaine with 1.5-inch 25-gauge needle in the middle region of the joint line.? A 3.5-inch 22-gauge spinal needle with small bend on the tip was slowly advanced towards the joint line, coaxial to the x-ray beam. Once bony content was obtained, the needle was easily slid into the intra-articular space.? Intra- articular needle position was confirmed using lateral fluoroscopy.? A total volume of 2.5mL of solution containing 40 mg Depomedrol and rest 0.5% of ropivacaine was injected intra-articularly. The stylet was reinserted and needle was removed. The patient tolerated the procedure well. Patient denied any lower extremity weakness or numbness. Patient was observed for 30 min and was discharged after fulfilling the standard discharge criteria. Coding 20272 - Sacroiliac Procedure code (CPT) selection complete Assessment & Plan Assessment & Plan (1) Sacroiliac joint dysfunction: Code(s): M53.3 - Sacrococcygeal disorders, not elsewhere classified Category: Medical Plan Patient is status post right therapeutic SI joint injection. Patient tolerated procedure well and was discharged home in stable condition with discharge i nstructions. All questions were answered. We will follow-up via telephone or in clinic to assess response to therapy. A follow-up appointment was made during today's visit. Orders: Orders FL guidance in treatment room Today M53.3 - Sacrococcygeal disorders, not elsewhere classified Coding Level of Care Code Procedure Only Diagnoses Sacroiliac joint dysfunction M53.3 CPT Codes Coding - Joint 9: 11398 - Sacroiliac ([id number])
[2024-03-04 11:18] VITALS: BP 150/56; PULSE 76; RESP 14; O2SAT 95; BMI 30.7
[2024-03-04 11:19] VITALS: BP 126/80; PULSE 74; RESP 14; O2SAT 96; BMI 30.7
== END 2024-03-04 11:18 | disposition home or self-care (01) ==
LOC: HO.PMCPRC 10:18
PROVIDERS: PCP Family Medicine; Visit Provider Internal Medicine
DX: M53.3 Sacrococcygeal disorders, not elsewhere classified (principal)
CPT/HCPCS: 27096

== ENCOUNTER 2024-03-09 14:04 | Outpatient (AMB) | payer MEDICARE, SELFPAY ==
--- NOTE | 2024-03-09 14:26 | MHC.OFFVIS ---
Vital Signs 03/09/24 14:27 Height 4 ft 10 in Weight 147 lb BMI 30.7 Intake Visit Reasons: OV- Lt hand ganglion cyst f/u-discuss options Intake Note: Alon an 83 year old left hand dominant female who presents today for a follow up of left hand ganglion cyst. Patient reports last injection done 02/11/24 did not provide her with any relief and would like to discuss other treatment options today. Allergies acetaminophen [From Tylox] Allergy (Mild, Verified 03/09/24 14:27) unknown lisinopril Allergy (Mild, Verified 03/09/24 14:27) unknown oxycodone [From Tylox] Allergy (Mild, Verified 03/09/24 14:27) unknown HPI HPI OV- Lt hand ganglion cyst f/u-discuss options: Details: Alon is an 83 year old left hand dominant Diabetic woman who returns to discuss her left De Quervain's Tenosynovitis, S/P injection on 02/11/24. She says this injection was not helpful and she continues to have pain radiating from her wrist to the base of her thumb. She says this occurs primarily when she walks using her cane in her left hand. She denies any numbness or tingling. She denies any prior treatment options. She is a Diabetic, and says this is controlled. She says her most recent HgA1c was either 7.6% or 7.9% but she is unsure. [facility] Surgical History History of hip surgery History of hip surgery Hx of knee surgery History of back surgery History of left knee surgery (~2013) Social History Patient Tobacco Use Status: Never used Tobacco Current occupational status: retired Current occupation: Left hand dominate Physical Exam Vital Signs: BMI result Body Mass Index 30.7 Extrem Other: Evaluation of Left Upper Extremity: The patient is alert, oriented, and in no acute distress Neuro: Median, Ulnar, Radial nerves motor and sensory intact and sensation is normal to the tips of all digits Vascular: Cap refill brisk ROM: She can make a fist and extend all her digits There is a soft mass or fullness essentially right over the left snuffbox. This appears most consistent with a possible lipoma as opposed to a ganglion cyst. It is not tender and is not what is bothering this patient. No tenderness over the 1st dorsal compartment Negative Jordin test on the left Negative Jordin test on the right Mild tenderness over the radial styloid, but not more proximally in the 1st dorsal compartment as it passes over the proximal radius Assessment & Plan Assessment & Plan (1) De Quervain's tenosynovitis, left: Code(s): M65.4 - Radial styloid tenosynovitis [de Quervain] Category: Medical (2) Diabetes mellitus: Code(s): E11.9 - Type 2 diabetes mellitus without complications Category: Medical Plan Assessment & Plan: 1. Left De Quervains Tenosynovitis, S/P injections Date of injections: 02/11/24, 11/19/23 Negative Jordin test I educated her about this condition Upon examining her today, we both realize that she actually has had considerable improvement since her last injection. I discussed operative & non-operative treatment options, and I am recommending non operative management for now. She is in agreement with the current plan I discussed activity modification, she should limit or avoid any heavy or repetitive pinching, gripping, or scissoring activities She will continue to wear her Comfort Cool brace with daily activity. If her symptoms increase in severity she can follow up to discuss treatment options Otherwise she can follow up prn Scribed for Ana Beasley MD by Dipak Rachel, hospital medical biller, on 03/09/24 at 3:15 PM, EST. Coding Level of Care Code Est Pt Level 4 (33632) Diagnoses De Quervain's tenosynovitis, left M65.4 Diabetes mellitus E11.9
[2024-03-09 14:27] VITALS: BMI 30.7
== END 2024-03-09 15:21 | disposition home or self-care (01) ==
PROVIDERS: PCP Family Medicine; Visit Provider Orthopaedic Surgery
DX: M65.4 Radial styloid tenosynovitis [de Quervain] (principal); E11.9 Type 2 diabetes mellitus without complications
CPT/HCPCS: 99213

== ENCOUNTER → 2024-03-09 14:04 | Outpatient (BNVA) | payer MEDICARE, SELFPAY | PROVIDERS: PCP Family Medicine; Visit Provider Orthopaedic Surgery | DX: M65.4 Radial styloid tenosynovitis [de Quervain] (principal); E11.9 Type 2 diabetes mellitus without complications | CPT/HCPCS: 99212 ==

== ENCOUNTER → 2024-04-09 11:23 | Outpatient (BNVA) | payer MEDICARE, SELFPAY | PROVIDERS: PCP Family Medicine; Visit Provider Internal Medicine ==

== ENCOUNTER 2024-05-04 13:06 | Outpatient (AMB) | payer MEDICARE, SELFPAY ==
--- NOTE | 2024-05-04 13:06 | MHC.OFFVIS ---
Intake Visit Reasons: ov-Lt knee pain-follow up Intake Note: Alon is a 83 year old female who presents with complaints of intermittent discomfort in her left knee. She also has intermittent right-sided low back pain. She did have a cortisone injection given into her right sacroiliac joint 2 months ago. She got fairly good relief from that injection. She continues to walk with a cane when she is out of her home. Allergies acetaminophen [From Tylox] Allergy (Mild, Verified 03/09/24 14:27) unknown lisinopril Allergy (Mild, Verified 03/09/24 14:27) unknown oxycodone [From Tylox] Allergy (Mild, Verified 03/09/24 14:27) unknown Medication List - Last Reconciled 05/04/24 by Daniel Kapadia MD acetaminophen (Tylenol) 650 mg PO Q6H PRN albuterol sulfate 90 mcg/actuation inhalation amoxicillin 2,000 mg (4 x 500 mg) PO ONCE 1 day atorvastatin 40 mg PO DAILY carvedilol 6.25 mg PO BID cholecalciferol (vitamin D3) (Vitamin D3) 25 mcg PO DAILY dulaglutide (Trulicity) 3 mg subcut QWEEK fenofibrate 160 mg PO DAILY flash glucose sensor (FreeStyle Renaldo 2 Sensor kit) As directed gabapentin 200 mg (2 x 100 mg) PO BEDTIME glipizide 10 mg PO BID hydrochlorothiazide 25 mg PO DAILY insulin admin supplies As directed insulin glargine U-300 conc (Toujeo Max U-300 SoloStar) 26 units subcut DAILY losartan 100 mg PO DAILY multivitamin 1 tab PO DAILY omeprazole 20 mg PO DAILY PFSH Surgical History History of hip surgery History of hip surgery Hx of knee surgery History of back surgery History of left knee surgery (~2013) Social History Patient Tobacco Use Status: Never used Tobacco Current occupational status: retired Current occupation: Left hand dominate Physical Exam Const Other: Well-nourished well-developed very friendly female awake alert and oriented x3 in no acute distress Extrem Other: Left knee examination shows that the surgical incision is well healed, no erythema, full active extension and flexion to 120 degrees, her patella tracks well Assessment & Plan Assessment & Plan (1) Left knee pain: Code(s): M25.562 - Pain in left knee Category: Medical Plan Alon continues to do well after undergoing left total knee replacement surgery. She does know to take antibiotics before any dental work. She will continue with her home exercise program. She will follow up with Dr. Cervantes for further information regarding treatment options for her right sacroiliitis. I did refill her prescription for lidocaine patches. She will contact me prior to her annual follow-up appointment should any questions or concerns arise. Feel free to call me at any time should questions regarding her orthopedic management arise. I spent 20 minutes in reviewing the patient's records and imaging studies, seeing the patient and documenting in the medical record. Medications: New lidocaine 5% leave on most painful area for up to 12 hrs topical 30 ea 3RF Coding Level of Care Code Est Pt Level 3 (70212) Complex EM visit Add On G2211 Diagnoses Left knee pain M25.562
== END 2024-05-04 13:30 | disposition home or self-care (01) ==
PROVIDERS: PCP Family Medicine; Visit Provider Orthopaedic Surgery
DX: M25.562 Pain in left knee (principal)
CPT/HCPCS: 99213; G2211

== ENCOUNTER → 2024-05-04 13:06 | Outpatient (BNVA) | payer MEDICARE, SELFPAY | PROVIDERS: PCP Family Medicine; Visit Provider Orthopaedic Surgery | DX: M25.562 Pain in left knee (principal); M54.50 Low back pain, unspecified | CPT/HCPCS: 99212 ==

== ENCOUNTER 2024-05-27 06:22 | Outpatient (REF) | payer MEDICARE, SELFPAY | END 2024-05-27 06:23 | disposition home or self-care (01) | LOC: CF 06:22 | PROVIDERS: Visit Provider Internal Medicine | DX: M53.3 Sacrococcygeal disorders, not elsewhere classified (principal) | CPT/HCPCS: 27096; J2003; J2795; J3301 ==

== ENCOUNTER 2024-05-27 11:55 | Outpatient (AMB) | payer MEDICARE, SELFPAY ==
[2024-05-27 12:03] VITALS: BP 155/69; PULSE 70; O2SAT 96
--- NOTE | 2024-05-27 12:03 | A.OFFVIS_ITS ---
Vital Signs 05/27/24 12:03 05/27/24 12:35 BP 155/69 H 136/67 Blood Pressure Location Lt brachial Lt brachial Position Sitting Sitting Pulse 70 76 Pulse Source Pulse Oximeter Pulse Oximeter Pulse Oximetry (%) 96 95 Oxygen Delivery Method Room Air Room Air Intake Visit Reasons: Right theraputic SIJ inj Allergies acetaminophen [From Tylox] Allergy (Mild, Verified 03/09/24 14:27) unknown lisinopril Allergy (Mild, Verified 03/09/24 14:27) unknown oxycodone [From Tylox] Allergy (Mild, Verified 03/09/24 14:27) unknown HPI HPI Right theraputic SIJ inj: Details: Patient presents for scheduled procedure. Denies any recent cough, cold, infection, fever or other significant changes in medical history since last office visit. [facility] Surgical History History of hip surgery History of hip surgery Hx of knee surgery History of back surgery History of left knee surgery (~2013) Social History Patient Tobacco Use Status: Never used Tobacco Current occupational status: retired Current occupation: Left hand dominate Physical Exam Vital Signs: Last Vital Signs Pulse 76 05/27/24 12:35 BP 136/67 05/27/24 12:35 Pulse Ox 95 05/27/24 12:35 Oxygen Delivery Method Room Air 05/27/24 12:35 Office Procedures AMB Joint Injection/Aspiration Joint Injection/Aspiration Details: Sacroiliac Joint Injection, right The procedure, its benefits, and its risks were explained and written informed consent was obtained from the patient. Immediately prior to starting the procedure, a time-out safety check was conducted. The patient's identification, procedure name, procedure site, and procedure laterality were confirmed with the patient. ? Patient was placed prone on the fluoroscopy table and the lumbosacral area was prepped using ChloraPrep and draped with sterile drapein standard fashion. The C-arm was rotated in a contralateral oblique fashion until the medial border of the iliac crest no longer foreshadowed the posterior sacroiliac joint line. The skin and subcutaneous tissue was anesthetized using 1 mL of 0.75% plain lidocaine with 1.5-inch 25-gauge needle in the middle region of the joint line. A 3.5-inch 22-gauge spinal needle with small bend on the tip was slowly advanced towards the joint line, coaxial to the x-ray beam. Once bony content was obtained, the needle was easily slid into the intra-articular space.? Intra- articular needle position was confirmed using lateral fluoroscopy.? A total volume of 2.5mL of solution containing 40 mg triamcinolone and rest 0.5% of ropivacaine was injected intra-articularly. The stylet was reinserted and needle was removed. The patient tolerated the procedure well. Patient denied any lower extremity weakness or numbness. Patient was observed for 30 min and was discharged after fulfilling the standard discharge criteria. Coding 46603 - Sacroiliac Procedure code (CPT) selection complete Assessment & Plan Assessment & Plan (1) Sacroiliac joint dysfunction: Code(s): M53.3 - Sacrococcygeal disorders, not elsewhere classified Category: Medical Plan Patient is status post therapeutic right sacroiliac joint injection. Patient tolerated procedure well and was discharged home in stable condition with discharge instructions. All questions were answered. We will follow-up via telephone or in clinic to assess response to therapy. A follow-up appointment was made during today's visit. Orders: Orders FL guidance in treatment room Today M53.3 - Sacrococcygeal disorders, not elsewhere classified Coding Level of Care Code Procedure Only Diagnoses Sacroiliac joint dysfunction M53.3 CPT Codes Coding - Joint 9: 85479 - Sacroiliac ([id number])
[2024-05-27 12:35] VITALS: BP 136/67; PULSE 76; O2SAT 95
== END 2024-05-27 12:22 | disposition home or self-care (01) ==
LOC: HO.PMCPRC 11:55
PROVIDERS: PCP Family Medicine; Visit Provider Internal Medicine
DX: M53.3 Sacrococcygeal disorders, not elsewhere classified (principal)
CPT/HCPCS: 27096

== ENCOUNTER 2024-06-23 10:33 | Outpatient (AMB) | payer MEDICARE, SELFPAY ==
--- NOTE | 2024-06-23 10:38 | MHC.OFFVIS ---
Vital Signs 06/23/24 10:40 Height 4 ft 10 in Weight 143 lb BMI 29.9 BP 184/75 H Blood Pressure Location Lt brachial Position Sitting Respiration 16 Pulse 89 Pulse Source Pulse Oximeter Pulse Oximetry (%) 96 Oxygen Delivery Method Room Air Intake Visit Reasons: s/p right SIJ inj Allergies acetaminophen [From Tylox] Allergy (Mild, Verified 06/23/24 10:41) unknown lisinopril Allergy (Mild, Verified 06/23/24 10:41) unknown oxycodone [From Tylox] Allergy (Mild, Verified 06/23/24 10:41) unknown Medication List - Last Reconciled 06/23/24 by Juanis Gilliland LPN acetaminophen (Tylenol) 650 mg PO Q6H PRN albuterol sulfate 90 mcg/actuation inhalation amoxicillin 2,000 mg (4 x 500 mg) PO ONCE 1 day atorvastatin 40 mg PO DAILY carvedilol 6.25 mg PO BID cholecalciferol (vitamin D3) (Vitamin D3) 25 mcg PO DAILY dulaglutide (Trulicity) 3 mg subcut QWEEK fenofibrate 160 mg PO DAILY flash glucose sensor (FreeStyle Renaldo 2 Sensor kit) As directed gabapentin 200 mg (2 x 100 mg) PO BEDTIME glipizide ER 10 mg PO DAILY hydrochlorothiazide 25 mg PO DAILY insulin admin supplies As directed insulin glargine U-300 conc (Toujeo Max U-300 SoloStar) 26 units subcut DAILY lidocaine 5% leave on most painful area for up to 12 hrs topical losartan 100 mg PO DAILY multivitamin 1 tab PO DAILY omeprazole 20 mg PO DAILY HPI HPI s/p right SIJ inj: Details: 83-year-old female who presents to the office today status post right SIJ injection. While in the office today, patient reports she did not get any therapeutic benefit from the SI joint injection. She only got 1 day of relief, which is similar to the diagnostic injection. She has been using a lidocaine patch for her back pain that has been effective. Today her main complaint is her left knee pain. She has had bilateral knee arthroplasties and unfortunately she has had post arthroplasty knee pain on both sides, worse on the left. Past Procedure: 05/27/24: Right SIJ injection: 10% relief, only for 1 day. 03/04/24: Sacroiliac Joint Injection, right. 02/19/24: Sacroiliac Joint Injection, RIGHT: 100% relief for about four hours. [facility] Surgical History History of hip surgery History of hip surgery Hx of knee surgery History of back surgery History of left knee surgery (~2013) Social History Patient Tobacco Use Status: Never used Tobacco Current occupational status: retired Current occupation: Left hand dominate Review of Systems Const All systems reviewed & are unremarkable except as noted in HPI and below Physical Exam Vital Signs: Last Vital Signs Pulse 89 06/23/24 10:40 Resp 16 06/23/24 10:40 BP 184/75 H 06/23/24 10:40 Pulse Ox 96 06/23/24 10:40 Oxygen Delivery Method Room Air 06/23/24 10:40 BMI result Body Mass Index 29.9 General: Appears afebrile. Alert and oriented. Mood and affect appropriate. Follows and participates in conversation appropriately. Respiratory effort is unlabored. Able to transition from sit to stand unassisted. Ambulates with bilaterally normal heel strike and toe off. There is a severe tenderness to palpation around the left knee. Results Reviewed Results Reviewed: No imaging is available for review. Assessment & Plan Assessment & Plan (1) Chronic knee pain after total replacement of both knee joints: Code(s): M25.561 - Pain in right knee; M25.562 - Pain in left knee; G89.28 - Other chronic postprocedural pain; Z96.653 - Presence of artificial knee joint, bilateral Category: Medical (2) Post laminectomy syndrome: Code(s): M96.1 - Postlaminectomy syndrome, not elsewhere classified Category: Medical (3) Low back pain: Code(s): M54.50 - Low back pain, unspecified Category: Medical Plan Patient is interested in therapeutic modalities for her bilateral knee pain as well as post-laminectomy low back pain. I discussed temporary nerve stimulation of bilateral saphenous nerves (left > right) as well as lumbar medial branch nerves (especially on the right side), for her multiple pain areas. She has been using lidocaine patches with good effect for her low back pain, so she is not interested in any devices to be placed for her low back pain. She does complain of severe pain in her left knee and is interested in temporary nerve stimulation for that joint. I went over the details of the sprint PNS device including the nature of the lead, expected outcomes and care requirements for the lead while it is in place. Patient expressed understanding and is in agreement to proceed with temporary left saphenous nerve stimulator placement for her chronic post arthroplasty left knee pain. We can follow-up on this with a similar procedure on the right side for her right knee in due time. If her low back pain starts to become more bothersome in the future, we can consider lumbar medial branch temporary nerve stimulation as well. Scribed for Dr. Cervantes by Ally Mazariegos, medical educator, on 06/23/2024.? I, Dr. Cervantes, have personally reviewed and agree with the information entered by the scribe. Coding Level of Care Code Est Pt Level 3 (66788) Diagnoses Chronic knee pain after total replacement of both knee joints M25.561; M25.562; G89.28; Z96.653 Post laminectomy syndrome M96.1 Low back pain M54.50
[2024-06-23 10:40] VITALS: BP 184/75; PULSE 89; RESP 16; O2SAT 96; BMI 29.9
--- OUTSIDE RECORDS SUMMARY | 2024-06-24 00:33 | XMS_ITS ---
[facility] Name [facility] Unknown History of Medication Use Medication Directions Dispensed Refills Start Date End Date Stat ammonium lactate (AMLACTIN) 12 % cream apply neck down THREE times a WEEK THEN daily as tolerated 03/04/2024 active fenofibrate micronized (LOFIBRA) 200 MG capsule take ONE CAPSULE (200mg total) BY MOUTH EVERY MORNING BEFORE breakfast 03/04/2024 active vitamin D3 (cholecalciferol) 25 MCG (1000 UT) tablet Take 1 tablet (25 mcg total) by mouth daily. 11/29/2023 active hydroCHLOROthiazide (HYDRODIURIL) tablet 25 mg TAKE ONE TABLET BY MOUTH EVERY DAY 11/29/2023 active glipiZIDE (GLUCOTROL) tablet 10 mg TAKE ONE TABLET BY MOUTH TWICE DAILY 11/29/2023 active omeprazole (PriLOSEC) 20 MG capsule TAKE ONE CAPSULE BY MOUTH EVERY DAY 11/29/2023 active Trulicity 3 MG/0.5ML subcutaneous pen-injector inject 0.5ml UNDER THE SKIN ONCE WEEKLY 11/29/2023 active Insulin Glargine, 1 Unit Dial, (Tamanna SoloStar) 300 UNIT/ML SOPN Inject 24 Units under the skin daily. 11/29/2023 active albuterol 108 (90 Base) MCG/ACT inhaler Inhale 2 puffs into the lungs every 4 (four) hours as needed for wheezing. 11/29/2023 active Multiple Vitamin (MULTIVITAMINS PO) Take 1 tablet by mouth daily. Multivitamins CAPS Refills: 0 Active 11/29/2023 active cyanocobalamin 100 MCG tablet 1 tablet (100 mcg total) daily. 11/29/2023 active fenofibrate micronized (LOFIBRA) 200 MG capsule Take 1 capsule (200 mg total) by mouth every morning before breakfast. 11/29/2023 active atorvastatin (LIPITOR) tablet 40 mg TAKE ONE TABLET BY MOUTH EVERY DAY 11/29/2023 active LORazepam (ATIVAN) 0.5 MG tablet Take 1 tablet (0.5 mg total) by mouth every 6 (six) hours as needed. 1-2 TABS 11/29/2023 active acetaminophen (TYLENOL) 650 MG CR tablet Take 1 tablet (650 mg total) by mouth 2 (two) times a day. 11/29/2023 active Continuous Blood Gluc Sensor (FreeStyle Renaldo 2 Sensor) MISC 1 each by Does not apply route every 14 (fourteen) days. 11/29/2023 active carvedilol (COREG) 3.125 MG tablet TAKE ONE TABLET TWICE DAILY WITH meals 11/29/2023 active gabapentin (NEURONTIN) 100 MG capsule Take 2 capsules (200 mg total) by mouth every night at bedtime. 11/29/2023 active amoxicillin (AMOXIL) 500 MG capsule Take 4 tablets 1 hour prior to dental appointment 11/29/2023 active Multiple Vitamins-Minerals (ZINC PO) Take by mouth. 11/29/2023 active losartan (COZAAR) 100 MG tablet TAKE ONE TABLET BY MOUTH EVERY DAY 11/29/2023 active Problems Problem Status Onset Date Problem Type Date of Resolution Source Right hip pain active 2017-05-28 ProblemAct [facility] Anemia active 2022-03-19 ProblemAct [facility] Neuropathy active 2022-03-19 ProblemAct [facility] HTN (hypertension) active 2022-03-19 ProblemAct [facility] Disorder of intervertebral disc active 2022-03-19 ProblemAct [facility] Gastroesophageal reflux disease active 2022-03-19 ProblemAct [facility] Diabetes mellitus due to underlying condition with hyperglycemia, without long-term current use of insulin active 2016-08-12 ProblemAct [facility] Chest pain, unspecified type active EncounterDiagnosisAct CT THN[facility] Aortic valve sclerosis active 2017-08-11 ProblemAct [facility] Diastolic dysfunction active 2017-08-11 ProblemAct [facility] Asthma active 2017-03-24 ProblemAct [facility] Anxiety active 2023-09-21 ProblemAct [facility] BPV (benign positional vertigo) active 2015-03-22 ProblemAct [facility] COVID-19 active 2022-09-29 ProblemAct [facility] CKD (chronic kidney disease) stage 3, GFR 30-59 ml/min active 2016-08-12 ProblemAct [facility] Type 2 diabetes mellitus without complication, without long-term current use of insulin active 2018-08-13 ProblemAct [facility] Lumbar back pain active 2018-04-17 ProblemAct C [facility] Urinary incontinence active ProblemAct [facility] History of arthroplasty of left knee active 2023-09-21 ProblemAct [facility] Mitral valve annular calcification active 2016-08-12 ProblemAct [facility] History of pulmonary embolism active 2017-03-25 ProblemAct [facility] Mixed hyperlipidemia active 2016-08-12 ProblemAct [facility] Precordial chest pain active 2018-02-05 ProblemAct [facility] Cholelithiases active 2023-09-21 ProblemAct CTT [facility] Iron deficiency anemia active 2022-03-19 ProblemAct [facility] Dyspnea on exertion active 2018-02-05 ProblemAct [facility] Arthropathy active 2015-02-16 ProblemAct [facility] Knee joint stiffness, bilateral active 2018-07-15 ProblemAct [facility] COPD (chronic obstructive pulmonary disease) active ProblemAct [facility] LVH (left ventricular hypertrophy) active EncounterDiagnosisAct [facility] Immunizations Vaccine Date Source Lot Number Status Pneumococcal, Unspecified Formulation 03/22/2015 [facility] completed Influenza Vaccine, Unspecified formulation 03/22/2015 [facility] completed Influenza Quad (Fluad) 0.5 m L >65Yrs (A&B ADJUVANTED) [id number] completed
== END 2024-06-23 11:03 | disposition home or self-care (01) ==
PROVIDERS: PCP Family Medicine; Visit Provider Internal Medicine
DX: M25.561 Pain in right knee (principal); M25.562 Pain in left knee; G89.28 Other chronic postprocedural pain; Z96.653 Presence of artificial knee joint, bilateral; M96.1 Postlaminectomy syndrome, not elsewhere classified; M54.50 Low back pain, unspecified
CPT/HCPCS: 99213

== ENCOUNTER → 2024-06-23 10:33 | Outpatient (BNVA) | payer MEDICARE, SELFPAY | PROVIDERS: PCP Family Medicine; Visit Provider Internal Medicine | DX: M25.561 Pain in right knee (principal); M25.562 Pain in left knee; G89.28 Other chronic postprocedural pain; M96.1 Postlaminectomy syndrome, not elsewhere classified; M54.50 Low back pain, unspecified; Z96.653 Presence of artificial knee joint, bilateral | CPT/HCPCS: 99212 ==

== ENCOUNTER 2024-10-19 10:36 | Outpatient (REF) | payer MEDICARE, SELFPAY ==
--- NOTE | ~2024-10-19 | XR_ITS ---
CLINICAL HISTORY: M25.562 - Pain in left knee Three views of the left knee. COMPARISON: None FINDINGS: Small suprapatellar joint effusion. Anatomic alignment of left total knee arthroplasty with patellar resurfacing. No evidence of hardware loosening or failure. Visualized portions of the distal femur, patella, and proximal tibia and fibula appear intact. IMPRESSION: 1. Small left suprapatellar joint effusion. 2. Anatomic alignment of left total knee arthroplasty without evidence of hardware complication. This document has been electronically signed by: Darvin Roldan MD on 10/20/2024 15:04:38
--- OUTSIDE RECORDS SUMMARY | 2024-10-20 12:09 | XMS_ITS | Clinical Summary ---
Author Organization [facility] Psychologist [employer] [place] Address [address] [place] [address] Phone Care Team Providers Care Recruiter Name Role Phone Frank Trejo MD Primary Care Provider [phone] Allergies Active Allergy Reactions Criticality Noted Date [...] Description 09/06/2024 12:00 PM EST Office Visit [facility] Cardiology - [place] [address] [place] [phone] Rashid Edwards MD Dyspnea, unspecified type [...] EYE SURGERY PROCEDURE:EYE SURGERY;COMMENT:CATARACT OTHER SURGICAL HISTORY PROCEDURE:KS PELVIC EXAMINATION W/ANESTHESIA OTHER THAN LOCAL;COMMENT:TUBAL LIGATION CARDIAC CATHETERIZATION 2009 PROCEDURE:CARDIAC CATHETERIZATION HAND SURGERY Left PROCEDURE:HAND SURGERY;COMMENT:CTS BREAST SURGERY Right PROCEDURE:BREAST SURGERY;COMMENT:BX TONSILLECTOMY PROCEDURE:TONSILLECTOMY JOINT REPLACEMENT PROCEDURE:JOINT REPLACEMENT TOTAL HIP ARTHROPLASTY 08/29/2016 Left PROCEDURE:TOTAL HIP ARTHROPLASTY;COMMENT:Procedure: REPLACEMENT TOTAL HIP; Surgeon: Daniel Kapadia MD; [facility] Service: Orthopedics; Laterality: Left; Medical History Medical History Date Comments Hypertension DX:Hypertension Hyperlipidemia DX:Hyperlipidemi a Diabetes ([facility]) DX:Diabetes ( [facility]) Osteoarthritis DX:Osteoarthriti s History of cardiac catheterization December 2009 DX:History of cardiac catheterization;COMMENT:No critical CAD normal LV function. Pulmonary embolism DX:Pulmonary embolism ([facility]) SPRINGER (dyspnea on exertion) DX:SPRINGER (dyspnea on exertion) COPD (chronic obstructive pu lmonary disease) ([facility]) DX:COPD (chronic obstructive pulmonary disease) ([facility]) GERD (gastroesophageal reflux disease) DX:GERD (gastroesophageal reflux disease) Diabetes mellitus, type II ([facility]) DX:Diabetes mellitus, type II ([facility]) Peripheral neuropathy DX:Periphe ral neuropathy Anemia [...] uncomplicated 02/12/2017 DX:Diabetes mellitus type 2, uncomplicated ([facility]) History of pulmonary embolism 03/25/2017 DX [...] EDT [facility] Visit [facility] [place] [address] [facility] [address] [place] [address] Moisés Long MD [address] [facility] [address] [place] [address] 03/24/2025 11:30 AM EDT Office Visit Pulmonolgy - [place] [address] [facility] [address] [place] [phone] Kimo Anderson MD [address] [facility] [address] [place] [address] Health Maintenance Due Date Last Done Comments [...] Maintenance Results * Lipid panel (06/24/2023) Pathologist [facility] LDL/HDL Ratio 4 Triglycerides 451 mg/dL Cholesterol 141 mg/dL HDL 39 mg/dL LDL Cholesterol 65 mg/dL Blood Venous blood specimen / Unknown Result [facility] Provider LAB BLOOD ORDERABLES Dalila l Result * Hemoglobin A1c (06/19/2023) Pathologist [facility] Hemoglobin A1C 7.2 % Blood Venous blood specimen / Unknown [facility] Provider LAB BLOOD ORDERABLES Dalila l Result * Urine Albumin Creatinine Ratio (02/22/2022) Pathologist [facility] Urine Albumin Creatinine Ratio Abstracted [facility] Provider HEALTH MAINTENANCE Final Result * Annual BMP Blood Test (11/09/2021) Pathologist [facility] Annual BMP Blood Test Abstracted [facility] Provider HEALTH MAINTENANCE Final Result * Diabetes Eye Exam (01/31/2021) Pathologist [facility] Diabetes: Annual Retina Eye Exam Abstracted [facility] Provider HEALTH MAINTENANCE Final Result from Last 3 Months or Most Recently Relevant to Health Maintenance Insurance MEDICARE AARP Advance Directives Documents on File Type Date Recorded Patient Automatic Clipper And Stripper Expl anation Health Care Decision (hx) 02/21/2015 [...] (hx) 02/16/2015 AD CALDERON DIRECTIVE Care Teams Recruiter Relationship Specialty Start Date End Date Frank Trejo MD PCP - General Family Medicine 03/19/22
--- OUTSIDE RECORDS SUMMARY | 2024-10-20 12:10 | XMS_ITS | Clinical Summary ---
Author Organization [facility] Address [address] [place] [address] Care Team Providers Care Cell Geneticist Name Role Phone Frank Trejo MD Primary Care Provider [phone] Allergies Active Allergy Reactions Criticality Noted Date [...] each 08/22/2023 Active Global Ease Inject Pen [place] 31G X 5 MM MISC USE EVERY [...] Patient-Stated? Author Diet: Eat a well-balanced diet [facility] Improving( 12:43 PM EDT) No Jenny Ness, [...] following partially Medical Devices Implanted Type Area Web Application Tester Device Identifier Shelf Expiration Date Model / Serial / Lot Shell D 50mm Primary Hemispherical Cluster Hole Tritanium - [id number] - [id number] Implanted:Qty: 1 on 08/29/2016 by Daniel aKpadia MD at [facility] Left: Hip [employer] 08/04/2021 502-03-50D / / [id number] Screw Trident Secur-Fit Torx 30mm 6.5mm Titanium Bone - 937605 - [id number] Implanted:Qty: 1 on 08/29/2016 by Daniel Kapadia MD at [facility] Left: Hip [employer] 06/02/2021 4829-7287- 1 / / [id number] Screw Trident 25mm 6.5mm Titanium Acetabular Cancellous - [id number] - [id number] Implanted:Qty: 1 on 08/29/2016 by Daniel Kapadia MD at [facility] Left: Hip [employer] 07/17/2021 5564-3960- 1 / / [id number] Insert Trident 10d D 32mm X3 Acetabular Hip - [id number] - [id number] Implanted:Qty: 1 on 08/29/2016 by Daniel Kapadia MD at [facility] Left: Hip [employer] 07/16/2021 623-10-32D / / [id number] Stem Accolade Ii 127d 2 Femoral Hip - 034139 - [id number] Implanted:Qty: 1 on 08/29/2016 by Daniel Kapadia MD at [facility] Left: Hip [employer] 01/11/2018 1612-8184 / / [id number] Head V40 -4mm 32mm Biolox Delta Femoral Hip - [id number] - [id number] Implanted:Qty: 1 on 08/29/2016 by Daniel Kapadia MD at [facility] Left: Hip [employer] 01/22/2021 6570-0-032 / / [id number] Advance Directives For more information, please contact: [phone] Documents on File Type Date Recorded Patient V Belt Finisher Expl anation Advance Directive and Living Will [...] patient at her preop appointment. Care Teams Cell Geneticist Relationship Specialty Start Date End Date Frank Trejo MD PCP - General Family Medicine 03/19/22
== END 2024-10-19 10:37 | disposition home or self-care (01) ==
LOC: HO.HOSX 10:36
PROVIDERS: Visit Provider Orthopaedic Surgery
DX: M25.562 Pain in left knee (principal)
CPT/HCPCS: 73562; 99212

== ENCOUNTER 2024-10-19 13:05 | Outpatient (AMB) | payer MEDICARE, SELFPAY ==
[2024-10-19 13:20] VITALS: BMI 29.9
--- NOTE | 2024-10-19 13:20 | MHC.OFFVIS ---
Vital Signs 10/19/24 13:20 Height 4 ft 10 in Weight 143 lb BMI 29.9 Intake Visit Reasons: Left knee pain Intake Note: Alon is an 83 year old female who presents today for follow up of her left knee pain after undergoing left total knee replacement surgery. She states that her pain has remained consistent since her last visit. She was seen by Dr. Cervantes from our pain management department who recommended possible nerve stimulation procedure to help with her discomfort. The patient states that she is planning on making a follow-up appointment with him. She denies any fevers or chills. Allergies acetaminophen [From Tylox] Allergy (Mild, Verified 10/19/24 13:23) unknown lisinopril Allergy (Mild, Verified 10/19/24 13:23) unknown oxycodone [From Tylox] Allergy (Mild, Verified 10/19/24 13:23) unknown Medication List - Last Reconciled 10/20/24 by Daniel Kapadia MD acetaminophen (Tylenol) 650 mg PO Q6H PRN albuterol sulfate 90 mcg/actuation inhalation amoxicillin 2,000 mg (4 x 500 mg) PO ONCE 1 day atorvastatin 40 mg PO DAILY carvedilol 6.25 mg PO BID cholecalciferol (vitamin D3) (Vitamin D3) 25 mcg PO DAILY dulaglutide (Trulicity) 3 mg subcut QWEEK fenofibrate 160 mg PO DAILY flash glucose sensor (FreeStyle Renaldo 2 Sensor kit) As directed gabapentin 200 mg (2 x 100 mg) PO BEDTIME glipizide ER 10 mg PO DAILY hydrochlorothiazide 25 mg PO DAILY insulin admin supplies As directed insulin glargine U-300 conc (Toujeo Max U-300 SoloStar) 26 units subcut DAILY lidocaine 5% leave on most painful area for up to 12 hrs topical losartan 100 mg PO DAILY multivitamin 1 tab PO DAILY omeprazole 20 mg PO DAILY PFSH Surgical History History of hip surgery History of hip surgery Hx of knee surgery History of back surgery History of left knee surgery (~2013) Social History Patient Tobacco Use Status: Never used Tobacco Current occupational status: retired Current occupation: Left hand dominate Physical Exam Vital Signs: BMI result Body Mass Index 29.9 Const Other: Well-nourished well-developed very friendly female awake alert and oriented x3 in no acute distress Extrem Other: Left knee examination shows that surgical incision is well healed, no erythema, full active extension and flexion to 120 degrees with minimal discomfort, her patella tracks well Results Reviewed Results Reviewed: X-rays of the patient's left knee show a total knee arthroplasty in good position with no signs of loosening, no acute bony abnormalities Assessment & Plan Assessment & Plan (1) Left knee pain: Code(s): M25.562 - Pain in left knee Category: Medical Plan Ms. Springer presents with continued left knee pain after undergoing left total knee replacement surgery of unclear etiology. At this point she does not appear to have any evidence of infection. She is encouraged to make a follow-up appointment with Dr. Cervantes for possible nerve stimulation procedure to help with her discomfort. She does know to take antibiotics before any dental work. She will contact me prior to her annual follow-up appointment should her symptoms worsen in any way. Feel free to call me at any time should questions regarding her orthopedic management arise. I spent 20 minutes in reviewing the patient's records and imaging studies, seeing the patient and documenting in the medical record. Orders: Orders XR knee LT 3V 10/19/24 M25.562 - Pain in left knee Coding Level of Care Code Est Pt Level 3 (06979) Complex EM visit Add On G2211 Diagnoses Left knee pain M25.562
--- OUTSIDE RECORDS SUMMARY | 2024-10-19 15:54 | XMS_ITS | Clinical Summary ---
Author Organization [facility] [place] Address [address] [place] [address] Phone Care Team Providers Care Unified Communications Architect Name Role Phone Frank Trejo MD Primary Care Provider [phone] Allergies Active Allergy Reactions Criticality Noted Date Comments Bacitracin Rash Low 08/29/2015 Lisinopril Other Medium 08/29/2015 COUGH Meloxicam Palpitations Low 03/24/2017 GI upset Metformin Diarrhea 10/25/2021 Midazolam Low 08/21/2016 HICCUPS Ondansetron Itching Medium 08/29/2015 Tramadol Nausea Only Low 08/29/2015 Tyloxapol Nausea And Vomiting High 08/29/2015 Medications acetaminophen (TYLENOL 8 HOUR) 650 mg 8 hr tablet Take 650 mg by mouth 2 (two) times a day. Active albuterol HFA (PROAIR HFA ; PROVENTIL HFA ; VENTOLIN HFA) 90 mcg/actuation inhaler Inhale 2 puffs into the lungs every 4 (four) hours as needed for wheezing. Active alpha lipoic acid 50 mg tablet tablet Take by mouth. A ctive amoxicillin (AMOXIL) 500 mg capsule Take 4 tablets 1 hour prior to dental appointment 01/19/20 22 Active atorvastatin (LIPITOR) 40 mg tablet Take 40 mg by mouth daily. 07/28/19 21 Active carvediloL (COREG) 3.125 mg tablet 2 (two) times a day with meals. 01/14/20 22 Active cyanocobalamin (VITAMIN B-12) 100 mcg tablet 100 mcg daily. Active cholecalciferol (VITAMIN D-3) 25 mcg (1,000 unit) tablet Take 25 mcg by mouth daily. Active flash glucose sensor (FREESTYLE ELIZABETH 2 SENSOR MISC) Inject 2 kits under the skin continuous prn. 10/15/19 22 Active fenofibrate (LOFIBRA) 160 mg tablet Take 160 mg by mouth daily. Active gabapentin (NEURONTIN) 100 mg capsule Take 1 tab daily at bedtime 04/03/20 22 Active hydroCHLOROthiaz francisco (HYDRODIURIL) 25 mg tablet TAKE ONE TABLET BY MOUTH EVERY DAY 04/30/20 22 Active LORazepam (ATIVAN) 0.5 mg tablet Take 0.5 mg by mouth every 6 (six) hours as needed. 1-2 TABS Active losartan (COZAAR) 100 mg tablet Take 100 mg by mouth daily. Active multivitamin (MULTIPLE VITAMINS ORAL) Take 1 tablet by mouth daily. Multivitamins CAPS Refills: 0 Active Active omeprazole (PriLOSEC) [address] capsule daily. Active dulaglutide (Trulicity) 3 mg/0.5 mL pen injector injection Inject 0.5 mL (3 mg total) under the skin once a week. 03/25/20 22 Active turmeric root extract 500 mg capsule Take by mouth. Activ e Lactobacillus acidophilus (PROBIOTIC ORAL) Take by mouth. Active nitrofurantoin, macrocrystal-mon ohydrate, (MACROBID) 100 mg capsule Take 1 capsule (100 mg total) by mouth 2 (two) times a day. 07/01/20 23 Active pen needle, diabetic (LITE TOUCH INSULIN PEN NEEDLES MISC) 1 each by Does not apply route daily. Use once daily with toujeo. 05/28/20 23 Active insulin glargine U-300 (Toujeo SoloStar U-300 Insulin) 300 unit/mL (1.5 mL) CONCENTRATED injection pen Inject 24 Units under the skin daily. 07/29/19 24 Active BLOOD-GLUCOSE METER,CONTINUOUS MISC 1 each by Does not apply route every 14 (fourteen) days. 08/22/19 24 Active multivitamin tablet Take 1 Tab by mouth daily. 02/13/20 17 Active fenofibrate micronized (LOFIBRA) 200 mg capsule Take 1 capsule (200 mg total) by mouth every morning before breakfast. 07/01/20 23 Active glipiZIDE (GLUCOTROL XL) 10 mg 24 hr tablet Take 1 tablet (10 mg total) by mouth 1 (one) time each day. Active Active Problems Problem Noted Date Diagnosed Date History of chest pain 09/06/2024 COPD (chronic obstructive pulmonary disease) Urinary incontinence 09/04/2023 Anemia 03/19/2022 BP (high blood pressure) 03/19/2022 Disorder of intervertebral disc 03/19/2022 Gastroesophageal reflux disease 03/19/2022 Iron deficiency anemia 03/19/2022 Neuropathy 03/19/2022 Osteoarthritis 03/19/2022 Pulmonary embolism 03/19/2022 COVID-19 11/09/2021 Type 2 diabetes mellitus wit hout complication, without long-term current use of insulin 08/13/2018 Knee joint stiffness, bilateral 07/15/2018 Lumbar back pain 04/17/2018 Dyspnea on exertion 02/05/2018 Precordial chest pain 02/05/2018 Aortic valve sclerosis 08/11/2017 Diastolic dysfunction 08/11/2017 Right hip pain 05/28/2017 Asthma 03/24/2017 CKD (chronic kidney disease) stage 3, GFR 30-59 ml/min 08/12/2016 Diabetes mellitus due to und erlying condition with hyperglycemia, without long-term current use of insulin 08/12/2016 Essential hypertension, benign 08/12/2016 Mitral valve annular calcification 08/12/2016 Mixed hyperlipidemia 08/12/2016 Encounters Date Type Department Care Team Description 09/06/2024 12:00 PM EST Office Visit [facility] Card[facility] - [place] [address] [place] [phone] Rashid Edwards MD Dyspnea, unspecified type (Primary Dx); Essential hypertension, benign; Chronic obstructive pulmonary disease, unspecified COPD type (CMS/HCC); Mixed hyperlipidemia from Last 3 Months Immunizations Name Administration Dates Next Due Influenza Quadravalent, 0.5ml (Fluad) 65yo and o lder 04/19/2021 Surgical History Surgery Date Site/Laterality Comments APPENDECTOMY PROCEDURE:APPENDECTOMY SPINAL FUSION May 2014 PROCEDURE:SPINAL FUSION;COMMENT:L4-5 TOTAL KNEE ARTHROPLASTY February 2015 Left PROCEDURE:TOTAL KNEE ARTHROPLASTY TOTAL KNEE ARTHROPLASTY Right PROCEDURE:TOTAL KNEE ARTHROPLASTY OTHER SURGICAL HISTORY PROCEDURE:GASTRIC POLYP EYE SURGERY PROCEDURE:EYE SURGERY;COMMENT:CATARACT OTHER SURGICAL HISTORY PROCEDURE:MN PELVIC EXAMINATION W/ANESTHESIA OTHER THAN LOCAL;COMMENT:TUBAL LIGATION CARDIAC CATHETERIZATION 2009 PROCEDURE:CARDIAC CATHETERIZATION HAND SURGERY Left PROCEDURE:HAND SURGERY;COMMENT:CTS BREAST SURGERY Right PROCEDURE:BREAST SURGERY;COMMENT:BX TONSILLECTOMY PROCEDURE:TONSILLECTOMY JOINT REPLACEMENT PROCEDURE:JOINT REPLACEMENT TOTAL HIP ARTHROPLASTY 08/29/2016 Left PROCEDURE:TOTAL HIP ARTHROPLASTY;COMMENT:Procedure: REPLACEMENT TOTAL HIP; Surgeon: Daniel Kapadia MD; Location: [facility] Service: Orthopedics; Laterality: Left; Medical History Medical History Date Comments Hypertension DX:Hypertension Hyperlipidemia DX:Hyperlipidemi a Diabetes ([facility]) DX:Diabetes ( [facility]) Osteoarthritis DX:Osteoarthriti s History of cardiac catheterization December 2009 DX:History of cardiac catheterization;COMMENT:No critical CAD normal LV function. Pulmonary embolism DX:Pulmonary embolism ([facility]) SPRINGER (dyspnea on exertion) DX:SPRINGER (dyspnea on exertion) COPD (chronic obstructive pu lmonary disease) ([facility]) DX:COPD (chronic obstructive pulmonary disease) ([facility]) GERD (gastroesophageal reflux disease) DX:GERD (gastroesophageal reflux disease) Diabetes mellitus, type II ([facility]) DX:Diabetes mellitus, type II ([facility]) Peripheral neuropathy DX:Periphe ral neuropathy Anemia DX:Anemia Urinary incontinence DX:Urinary incontinence PONV (postoperative nausea a nd vomiting) DX:PONV (postoperative nause a and vomiting) Eczema DX:Eczema;COMMEN T:CHILD History of transfusion DX:Histor y of transfusion Asthma DX:Asthma Headache DX:Headache Visual impairment DX:Visual impa irment Cataract DX:Cataract Urinary tract infection DX:Urina ry tract infection Varicella DX:Varicella History of shingles DX:History o f shingles Asthma 03/24/2017 DX:Asthma Diabetes mellitus type 2, uncomplicated 02/12/2017 DX:Diabetes mellitus type 2, uncomplicated ([facility]) History of pulmonary embolism 03/25/2017 DX :History of pulmonary embolism Family History Medical History Relation Name Comments Alcohol abuse Brother 1 Coronary artery disease Brother 1 Dementia Brother 1 parkinson's Diabetes Brother 1 Heart disease Brother 1 Alcohol abuse Brother 2 Cancer Brother 2 liver CA Coronary artery disease Brother 2 Diabetes Brother 2 Alcohol abuse Father Early Father Cancer Mother breast ca Relation Name Status Comments Brother 1 Brother 2 Father Mother Social History Tobacco Use Types Packs/Day Years Used Date Smoking Tobacco: Never Passive Smoke Exposure: Past Smokeless Tobacco: Never Tobacco Cessation:Counseling Given: Not Answered Alcohol Use Standard Drinks/Week Comments Yes 0 (1 standard drink = 0.6 oz pur e alcohol) Comments Unknown Sex and Gender Information Value Date Recorded Sex Assigned at Not on file Legal Sex Female 6:21 AM EST Gender Identity Not on file Sexual Orientation Not on file Obstetrics History Last Filed Vital Signs Vital Sign Reading Time Taken Comments Blood Pressure 134/68 09/06/2024 12:06 PM EST Pulse 93 09/06/2024 12:06 PM EST Temperature - - Respiratory Rate - - Oxygen Saturation 97% 09/06/2024 12:06 PM EST Inhaled Oxygen Concentration - - Weight 64.4 kg (142 lb) 09/06/2024 12:06 PM EST Height 152.4 cm (5') 09/06/2024 12:06 PM EST Body Mass Index 27.73 09/06/2024 12:06 PM EST Plan of Treatment Upcoming Encounters Date Type Department Care Team (Late st Contact Info) Description 12/13/2024 11:30 AM EDT Office Visit [facility] [place] [address] [facility] [address] [place] [id number] Moisés Long MD 19 [facility] [address] [place] [address] 03/24/2025 11:30 AM EDT Office Visit Pulmonolgy - [place] [address] [facility] [address] [place] [phone] Kimo Anderson MD 175 [facility] [address] [place] [address] Health Maintenance Due Date Last Done Comments COVID-19 Vaccine (#1) 1945 Diabetes: Annual Foot Exam 1950 Pneumococcal Vaccine: 50+ Years (1 of 2 - PCV) 11/01/1959 03/22/2015 Zoster Vaccines (1 of 2) 11[birth year]01/1959 RSV Immunization Adult Patients (1 - 1-dose 75+ series) 11/01/2015 Diabetes: Annual Retina Eye Exam 01/31/2022 01/31/2021 Depression Screening 06/20/2022 Falls Risk Assessment 06/20/2022 Medicare Annual Wellness Visit 06/20/2022 Osteoporosis Screening (Bone Density Screening) 06/20/2022 Social Influencers of Health Screening 06/20/2022 Diabetes: Annual Urine Albumin-Creatinine Ratio (uACR) 02/22/2023 02/22/2022 Diabetes: Annual GFR (Glomerular Filtration Rate) 09/30/2023 09/29/2022, 11/09/2021, 11/09/2021, Additional history exists Hypertension/CHF/CAD Annual BMP Blood Test 09/30/2023 09/29/2022, 11/09/2021, 11/09/2021, Additional history exists Diabetes: Blood Sugar Control Test (HGBA1C) 07/29/2024 01/27/2024, 06/19/2023, 06/18/2022 Cholesterol Screening (Lipid Panel) 06/24/2028 06/24/2023, 06/30/2022, 06/24/2022 DTaP,Tdap,and Td Vaccines (2 - Td or Tdap) 05/07/2031 05/07/2021 Influenza Vaccine Completed 05/04/2024, , 04/19/2021, Additional history exists HIB Vaccines Aged Out No longer eligi ble based on patient's age to complete this topic HPV Vaccines Aged Out No longer eligi ble based on patient's age to complete this topic Hepatitis A Vaccines Aged Out No long er eligible based on patient's age to complete this topic Hepatitis B Vaccines Aged Out No long er eligible based on patient's age to complete this topic IPV Vaccines Aged Out No longer eligi ble based on patient's age to complete this topic MMR Vaccines Aged Out No longer eligi ble based on patient's age to complete this topic Meningococcal ACWY Vaccine Aged Out N o longer eligible based on patient's age to complete this topic Meningococcal B Vaccine Aged Out No l onger eligible based on patient's age to complete this topic RSV Immunization Patients Under 20 months Aged Out No longer eligible based on patient's age to complete this topic Varicella Vaccines Aged Out No longer eligible based on patient's age to complete this topic Procedures Procedure Name Priority Date/Time Associated Diagnosis Comments LIPID PANEL Routine 06/24/2023 HEMOGLOBIN A1C Routine 06/19/2023 URINE ALBUMIN CREATININE RATIO Routine 02/22/2022 ANNUAL BMP BLOOD TEST Routine 11/09/2021 DIABETES EYE EXAM Routine 01/31/2021 from Last 3 Months or Most Recently Relevant to Health Maintenance Results * Lipid panel (06/24/2023) Pathologist [facility] LDL/HDL Ratio 4 Triglycerides 451 mg/dL Cholesterol 141 mg/dL HDL 39 mg/dL LDL Cholesterol 65 mg/dL Blood Venous blood specimen / Unknown Result [facility] Provider LAB BLOOD ORDERABLES Dalila l Result * Hemoglobin A1c (06/19/2023) Pathologist [facility] Hemoglobin A1C 7.2 % Blood Venous blood specimen / Unknown [facility] Provider LAB BLOOD ORDERABLES Dalila l Result * Urine Albumin Creatinine Ratio (02/22/2022) Pathologist [facility] Urine Albumin Creatinine Ratio Abstracted [facility] Provider HEALTH MAINTENANCE Final Result * Annual BMP Blood Test (11/09/2021) Pathologist [facility] Annual BMP Blood Test Abstracted [facility] Provider HEALTH MAINTENANCE Final Result * Diabetes Eye Exam (01/31/2021) Pathologist [facility] Diabetes: Annual Retina Eye Exam Abstracted [facility] Provider HEALTH MAINTENANCE Final Result from Last 3 Months or Most Recently Relevant to Health Maintenance Insurance MEDICARE AARP Advance Directives Documents on File Type Date Recorded Patient Restaurant Managing Partner Expl anation Health Care Decision (hx) 02/21/2015 AD CALDERON DIRECTIVE Health Care Decision (hx) 02/21/2015 AD CALDERON DIRECTIVE Health Care Decision (hx) 02/21/2015 AD CALDERON DIRECTIVE Health Care Decision (hx) 02/21/2015 AD CALDERON DIRECTIVE Health Care Decision (hx) 02/16/2015 AD CALDREON DIRECTIVE Health Care Decision (hx) 02/16/2015 AD CALDERON DIRECTIVE Health Care Decision (hx) 02/16/2015 AD CALDERON DIRECTIVE Health Care Decision (hx) 02/16/2015 AD CALDERON DIRECTIVE Care Teams Unified Communications Architect Relationship Specialty Start Date End Date Frank Trejo MD PCP - General Family Medicine 03/19/22
--- OUTSIDE RECORDS SUMMARY | 2024-10-19 15:54 | XMS_ITS | Data Portability ---
Author Organization [place] [facility] AD[facility] Address [address] [place] [address] Care Team Providers Care Network Design Architect Name Role Phone DAIN BONILLA Licensed Final Expense Agents FRANK MEHTA Referring Provider [phone] FRANK MEHTA Primary Care Provider [phone] SAMSON ODEN Etcher Hand ABRIL CHIN Steam Brush Operator Assessment Encounter Date Assessment Date Assessment LastModified by Organization Details LastModified Time 09/16/2024 09/16/2024 Patient presente d to office today for their Medicare Annual Wellness Visit. Education was provided on healthy nutrition, including a diet rich in fruits and vegetables, minimizing simple carbohydrates, salt, and saturated fats. Incorporating Vitamin D and Calcium supplements daily. Encouraged regular cardiovascular exercise such as walking at least 30 minutes daily, 5 times per week. Emphasized preventive health measures and educated pt on fall prevention and community-based lifestyle interventions to help reduce health risks and promote healthy living. The patient was also advised to: Get their routine vision and dental exams. Not available 09/16/2024 14:03:18 Plan of Treatment Reminders Order Date Submit Date Provider Last Modified By Organization Details Last Modified Time Details Appointments OFFICE VISIT 15 2024 11:45A M Not available Not available Not available OFFICE VISIT 2024 11:00A M Dr. Mehta Not available Not available Not available Lab glucose, fingerst ick, blood 2024 025 [email or web address] [facility], [address], [address], [place], [address], 08/18/2024 08:38:32 Referral None recorded . Procedures None recorded . Surgeries None recorded . Imaging None recorded . Medication Orders None recorded . Patient TargetsNo targets recorded. Patient Instructions Encounter Date Encounter Id Patient Instructions Last Modified By Organization Details Last Modified Time 09/16/2024 [id number] well visit, over 65: care instructions Not available 09/16/2024 14:09:05 medicare preventive services guide Not available 09/16/2024 14:09:05 Reason for Referral None Reported. Results Created Date Observation Date Name Description Value Unit Range Abnormal Flag Note LastModifiedBy Organization Detail LastModifiedTime 08/17/1908/17/2024 gluco se, daron rssulma k, blood Blood Glucose: mg/dl 181 Not Available [facility] [address], [place], [address], 08/11/2024 10:37:49 Result Notes None recorded. Problems Name Problem SNOMED Code Status Onset Date Resolution Date Notes Provider Name and Address Organization Details Recorded Time Benign essential hypertens ion 6913987 Active 2016 Essential hypertens ion, benign Not Available [facility] 4 09:37:52 Precordia l pain 85331639 Active 2017 Precordia l chest pain Not Available [facility] 4 09:37:53 Secondary diabetes mellitus 8106153 Active 2016 Diabetes mellitus due to underlyin g condition with hyperglyc emia, without long-term current use of insulin Not Available [facility] 4 09:37:53 Diastolic dysfuncti on 0173421 Active 2017 Diastolic dysfuncti on Not Available [facility] 4 09:37:53 Bilateral stiffness of knee joints 30073297784 451584 Active 2018 Knee joint stiffness , bilateral Not Available [facility] 4 09:37:53 Biliary calculus 915401412 Active 2023 Cholelith iases Not Available [facility] 4 09:37:53 Arthropat hy 197551854 Active 2014 Arthropat hy Not Available [facility] 4 09:37:53 History of pulmonary embolus 274357595 Active 2016 History of pulmonary embolism Not Available [facility] 4 09:37:53 Chronic obstructi ve pulmonary disease 28161907 Active 2022 COPD (chronic obstructi ve pulmonary disease) Not Available [facility] 4 09:37:54 Low back pain 951706900 Active 2017 Lumbar back pain Not Available [facility] 4 09:37:54 History of arthropla sty of left knee 05556085704 34563 Active 2023 History of arthropla sty of left knee Not Available [facility] 4 09:37:54 Neuropath y 129401251 Active 2021 Neuropath y Not Available [facility] 4 09:37:54 Mitral valve annular calcifica tion 646590148 Active 2016 Mitral valve annular calcifica tion Not Available [facility] 4 09:37:54 Mixed hyperlipi demia 663833055 Active 2016 Mixed hyperlipi demia Not Available [facility] 4 09:37:54 Gastroeso phageal reflux disease 370946701 Active 2021 Gastroeso phageal reflux disease Not Available [facility] 4 09:37:55 Hypertens toñito disorder 44908549 Active 2021 HTN (hyperten ann) Not Available [facility] 4 09:37:55 COVID-19 786451035 Active 2022 COVID-19 - Overview: Formattin g of this note might be different from the original. 11/09/2021 Not Available [facility] 4 09:37:55 Anxiety 21421843 Active 2023 Anxiety Not Available [facility] 4 09:37:55 Chronic kidney disease stage 3 328503595 Active 2016 CKD (chronic kidney disease) stage 3, GFR 30-59 ml/min Not Available [facility] 4 09:37:55 Asthma 073087605 Active 2016 Asthma Not Available [facility] 4 09:37:55 Iron deficienc y anemia 97982069 Active 2021 Iron deficienc y anemia Not Available [facility] 4 09:37:55 Dyspnea on exertion 30801068 Active 2017 Dyspnea on exertion Not Available [facility] 4 09:37:56 Pain in right hip joint 79939297291 9102 Active 2016 Right hip pain Not Available [facility] 4 09:37:56 Anemia 017543284 Active 2021 Anemia Not Available [facility] 4 09:37:56 Type 2 diabetes mellitus without complicat ion 789469423 Active 2018 Type 2 diabetes mellitus without complicat ion, without long-term current use of insulin Not Available [facility] 4 09:37:56 Intervert ebral disc disorder 41393368 Active 2021 Disorder of intervert ebral disc Not Available [facility] 4 09:37:56 Benign paroxysma l positiona l vertigo 366899440 Active 2014 BPV (benign positiona l vertigo) Not Available [facility] 4 09:37:57 Aortic valve sclerosis 85037097 Active 2017 Aortic valve sclerosis Not Available [facility] 4 09:37:57 Urinary incontine nce 637985209 Active 2022 Urinary incontine nce Not Available [facility] 4 09:37:57 Hyperglyc emia due to diabetes mellitus 774643645 Active 2016 Diabetes mellitus due to underlyin g condition with hyperglyc emia, without long-term current use of insulin Not Available [facility] 4 09:37:59 Hip pain 30561844 Active 2016 Right hip pain Not Available [facility] 4 09:38:00 Hyperglyc emia due to type 2 diabetes mellitus 51558256498 9109 Active 2024 Dain Bonilla MD [address] [place], [address] , [facility] 5 08:38:00 Notes:Some problems listed i n Documents: #[id number], #[id number] could not be added to this patient's chart. Please review these documents and add these problems to the patient's chart manually as needed. Problem Notes None recorded. Medical Equipment None Reported. Allergies Allergen ID Allergen Name Allergen Category Reaction Reaction Severity Criticality Documentation Date Start Date Code Code System Note Provider Name and Address Organization Details Recorded Time 25182 metformin medicatio n Not available Not available Not available 06/14/20242021 6809 RxNorm React ion: Diarr hea, sever ity: Unkno wn Not Available [facility] 19:24:31 58562 lisinopri l medicatio n Not available Not available Not available 06/14/20242015 07777 RxNorm React ion: Other (See Comme nts), sever ity: Unkno wn;CO UGH Not Available [facility] 4 19:24:31 27135 meloxicam medicatio n Not available Not available Not available 06/14/20242016 48868 RxNorm React ion: Palpi tatio ns, sever ity: Unkno wn;GI upset Not Available [facility] 4 19:24:32 26299 tramadol medicatio n Not available Not available Not available 06/14/20242015 46901 RxNorm React ion: Nause a Only, sever ity: Unkno wn Not Available [facility] 4 19:24:32 95719 midazolam medicatio n Not available Not available Not available 06/14/20242016 6960 RxNorm [facility] PS Not Available [facility] 4 19:24:32 92738 bacitraci n medicatio n Not available Not available Not available 06/14/20242015 1291 RxNorm React ion: Rash, sever ity: Unkno wn Not Available [facility] 4 19:24:32 18454 ondansetr on medicatio n Not available Not available Not available 06/14/20242015 84131 RxNorm React ion: Itchi ng, sever ity: Unkno wn Not Available [facility] 4 19:24:32 36723 tyloxapol medicatio n Not available Not available Not available 06/14/20242015 03360 RxNorm React ion: Nause a And Vomit ing, sever ity: Unkno wn Not Available [facility] 4 19:24:32 33403 adhesive tape environme nt,medica tion Not available Not available Not available 06/14/20242014 17972 UNK Other react ion(s ): skin react ion Not Available [facility] 19:24:35 Medications Name Sig Start Date Stop Date Status Note LastModified by Organization Details LastModified Time global ease inject pen neeedles 31g x5mm 31g x 5 mm misc active Not Available Not Available Not Available Prescriptio n - Prior Authorizati on Request active Not Available Not Available N ot Available fenofibrate micronized 160 mg tablet Take 1 tablet (160 mg total) by mouth daily. 07/01 completed Not Available Not Available Not Available amoxicillin 500 mg capsule TAKE FOUR CAPSULES BY MOUTH ONE HOUR BEFORE dental procedure active Not Available Not Available No t Available atorvastati n 40 mg tablet TAKE ONE TABLET BY MOUTH EVERY DAY 2024 active Not Available Not Available Not Avai lable nystatin 100,000 unit/mL oral suspension TAKE FIVE ML FOUR TIMES DAILY BY MOUTH SWISH AND EXPECTORA TE 06/18 completed Not Available Not Available Not Available carvedilol 6.25 mg tablet Take 3.125 mg by mouth 2 (two) times a day with meals. 03/19 completed Not Available Not Available Not Available cyanocobala min (vit B-12) 100 mcg tablet 1 tablet (100 mcg total) daily. active Not Available Not Available No t Available glipizide ER 10 mg tablet, extended release 24 hr TAKE ONE TABLET BY MOUTH DAILY active Not Available Not Available No t Available glipizide 10 mg tablet TAKE ONE TABLET BY MOUTH TWICE DAILY 06/18 completed Not Available Not Available Not Available methylpredn isolone 4 mg tablet Use as directed on the package for 6 days 06/19 completed Not Available Not Available Not Available fenofibrate micronized 200 mg capsule TAKE ONE CAPSULE BY MOUTH EVERY MORNING BEFORE BREAKFAST active Not Available Not Available No t Available carvedilol 3.125 mg tablet TAKE ONE TABLET TWICE DAILY WITH meals active Not Available Not Available No t Available acetaminoph en ER 650 mg tablet,exte nded release Take 1 tablet (650 mg total) by mouth 2 (two) times a day. active Not Available Not Available No t Available lorazepam 0.5 mg tablet TAKE ONE TABLET BY MOUTH EVERY 6 HOURS NEEDED 08/17 completed Not Available Not Available Not Available lidocaine 5 % topical patch place PATCH ON most painful AREA FOR UP TO 12 HOURS THE REMOVE active Not Available Not Available No t Available omeprazole 20 mg capsule,del ayed release TAKE ONE CAPSULE BY MOUTH EVERY DAY active Not Available Not Available No t Available ammonium lactate 12 % topical cream apply neck down THREE times a WEEK THEN daily as tolerated 2023 active Not Available Not Available Not Avai lable hydrochloro thiazide 25 mg tablet TAKE ONE TABLET BY MOUTH EVERY DAY active Not Available Not Available No t Available gabapentin 100 mg capsule TAKE TWO CAPSULES BY MOUTH AT BEDTIME active Not Available Not Available No t Available albuterol sulfate HFA 90 mcg/actuati on aerosol inhaler Inhale 2 puffs into the lungs every 4 (four) hours as needed for wheezing. active Not Available Not Available No t Available losartan 100 mg tablet TAKE ONE TABLET BY MOUTH EVERY DAY active Not Available Not Available No t Available glipizide 5 mg tablet Take 5 mg by mouth. 2 tabs once daily 06/18 completed Not Available Not Available Not Available docosahexae noic acid (dha)-epa 120 mg-180 mg capsule Take 2 tablets by mouth daily. 06/18 completed Not Available Not Available Not Available nitrofurant oin monohydrate /macrocryst als 100 mg capsule Take 1 capsule (100 mg total) by mouth 2 (two) times a day. 09/17 completed Not Available Not Available Not Available alpha lipoic acid 50 mg tablet Take by mouth. 05/13 completed Not Available Not Available Not Available calcium active Not Available Not Avail able Not Available zinc active Not Available Not Availa ble Not Available Vitamin D3 09/16 completed Not Available Not Available Not Available cholecalcif ceasar (vitamin D3) 25 mcg (1,000 unit) tablet Take 1 tablet (25 mcg total) by mouth daily. active Not Available Not Available No t Available Align (B.infantis ) active Not Available Not Available Not Available cyanocobala min (B12)-cobam amide 5,000 mcg-[address] by sublingua l route. active Not Available Not Available No t Available Pen Needle 31 gauge x 3/16 USE EVERY DAY with toujeo active Not Available Not Available No t Available Multi Vitamin active Not Available Not Available Not Available Trulicity 0.75 mg/0.5 mL subcutaneou s pen injector once a week. Take 3-0.5ml weekly 03/19 completed Not Available Not Available Not Available Toujeo SoloStar U-300 Insulin 300 unit/mL (1.5 mL) subcutaneou s pen Inject 24 Units under the skin daily. active Not Available Not Available No t Available FreeStyle Renaldo 2 Sensor kit apply ONE sensor EVERY 14 DAYS active Not Available Not Available No t Available Trulicity 3 mg/0.5 mL subcutaneou s pen injector INJECT 0.5ml UNDER THE SKIN ONCE WEEKLY 2024 active Not Available Not Available Not Avai lable Pepper 2nd Gen Pen Needle 32 gauge x 5/32 use once daily 2024 active Not Available Not Available Not Avai lable Vitals Date Recorded Body height Body temperature Heart rate Oxygen saturation Oxygen saturation in Arterial blood by Pulse oximetry Body mass index (BMI) Body weight Systolic blood pressure Diastolic blood pressure Provider Name and Address Organization Details Last Updated DateTime 4 150.5 cm 75.6 [degF] 81 /min 97 % 97 % 28.6 kg/m2 36498.7 1 g 122 mm[Hg] 82 mm[Hg] [facility] 4 11:18:01 Date Recorded Body height Body mass index (BMI) Body weight Oxygen saturation Oxygen saturation in Arterial blood by Pulse oximetry Heart rate Systolic blood pressure Diastolic blood pressure Provider Name and Address Organization Details Last Updated DateTime 5 150.5 cm 28.6 kg/m2 26450.7 1 g 97 % 97 % 77 /min 146 mm[Hg] 64 mm[Hg] [facility] 5 11:47:05 Date Recorded Body height Body mass index (BMI) Body weight Body temperature Oxygen saturation Oxygen saturation in Arterial blood by Pulse oximetry Heart rate Systolic blood pressure Diastolic blood pressure Provider Name and Address Organization Details Last Updated DateTime 5 150.5 cm 29.2 kg/m2 29491.4 9 g 97.3 [degF] 95 % 95 % 88 /min 132 mm[Hg] 78 mm[Hg] [facility] 5 13:21:15 Social History Question Answer Notes LastModified by Organizat ion Details LastModified Time Tobacco Smoking Status Never Smoker Not Available [facility] 06/15/2024 19:14:52 Do You Have An Advance Directive? Yes Information not available 09/16/2024 What Is Your Advocate's Name? Dominick Information not available 09/16/2024 What Is Your Relation To The Advocate? Information not available 09/16/2024 Is Your Home Air Conditioned? Yes Information not available 09/16/2024 What Is Your Level Of Alcohol Consumption? None Information not available 09/16/2024 Do You Have A Basement? Yes Information not available 09/16/2024 Are You Blind Or Do You Have Difficulty Seeing? No Information not available 09/16/2024 Is Blood Transfusion Acceptable In An Emergency? Yes Information not available 09/16/2024 Are You Or Have You Been Involved With Bullying? No Information not available 09/16/2024 What Is Your Level Of Caffeine Consumption? Occasional Information not available 09/16/2024 Are You A Caregiver? No Information not available 09/16/2024 What Is Your Code Status? DNR Information not available 09/16/2024 In The 14 Days Before Symptom Onset, Have You Had Close Contact With A Laboratory-aleksey younger COVID-19 While That Case Was Ill? No Information not available 09/16/2024 In The 14 Days Before Symptom Onset, Have You Had Close Contact With A Person Who Is Under Investigation For COVID-19 While That Person Was Ill? No Information not available 09/16/2024 Have You Been To An Area Known To Be High Risk For COVID-19? No Information not available 09/16/2024 Are You Currently Employed? No Information not available 09/16/2024 Are You Deaf Or Do You Have Serious Difficulty Hearing? No Information not available 09/16/2024 Are You At Moderate Or High Risk For Dental Cavities? No Information not available 09/16/2024 What Type Of Diet Are You Following? REGULAR Information not available 09/16/2024 Do You Have A Directive To Physicians? Yes Information not available 09/16/2024 Do You Reside In Or Have You Traveled To An Area Where Ebola Virus Transmission Is Active? No Information not available 09/16/2024 What Is The Highest Grade Or Level Of School You Have Completed Or The Highest Degree You Have Received? [id number] Information not available 09/16/2024 Do You Have An Electrostatic Air Filter? No Information not available 09/16/2024 How Many Times Per Week Do You Exercise? 3-4 Times Per Week Information n ot available 09/16/2024 Have You Been Exposed To Chemicals Or Toxins? No Information not available 09/16/2024 Have You Been Exposed To Heavy Metals? No Information not available 09/16/2024 Have There Been Any Changes To Your Family Or Social Situation? No Information not available 09/16/2024 What Is The Fluoride Status Of Your Home? Unknown Information not available 09/16/2024 Are There Any Guns Present In Your Home? No Information not available 09/16/2024 Which Of Your Hands Is Dominant? Left Information not available 09/16/2024 Have You Recently Or Are You Planning To Travel To An Area With Zika Virus? No Information not available 09/16/2024 Do You Have A Humidifier? Yes Information not available 09/16/2024 Do You Use Insect Repellent Routinely? No Information not available 09/16/2024 Where Do You Live? SingleLevelHouse Information not available 09/16/2024 How Long Have You Lived There? Since 1958 Information not available 09/16/2024 Do You Have A Medical Power Of Maintainer Central Office? Yes Information not available 09/16/2024 Do You Have Moisture Problems In Your Home? No Information not available 09/16/2024 How Many Children Do You Have? 4 Information not available 09/16/2024 Do You Or Have You Ever Used Any Nicotine-free Cigarettes, Vape, Or Chewing Tobacco? No Information not available 09/16/2024 Do You Have A Patient Advocate? Yes Information not available 09/16/2024 Do You Have Any Pets? Yes Information not available 09/16/2024 What Is Your Relationship Status? Information not available 09/16/2024 Do You Use Your Seat Belt Or Car Seat Routinely? Yes Information not available 09/16/2024 Are You Sexually Active? No Information not available 09/16/2024 Do You Have Any Siblings? Not Living Information not available 09/16/2024 Do You Have Smoke And Carbon Monoxide Detectors In Your Home? Yes Information not available 09/16/2024 Are You Passively Exposed To Smoke? No Information not available 09/16/2024 Are There Any Smokers In Your House? No Information not available 09/16/2024 Do You Participate In Social Media? Yes Information not available 09/16/2024 What Types Of Sporting Activities Do You Participate In? None Information not available 09/16/2024 Do You Feel Stressed (tense, Restless, Nervous, Or Anxious, Or Unable To Sleep At Night)? CU1716-5 Information not available 09/16/2024 Do You Use Any Illicit Or Recreational Drugs? No Information not available 09/16/2024 Do You Use Sunscreen Routinely? No Information not available 09/16/2024 Have You Recently Traveled Abroad? No Information not available 09/16/2024 Are You Currently In School? No Information not available 09/16/2024 What Contraceptive Method Was Reported At Start Of This Visit? None Information not available 09/16/2024 What Contraceptive Method Was Reported At End Of This Visit? Decline To Answer Information no t available 09/16/2024 Do You Have Any Dietary Restrictions? No Information not available 09/16/2024 Do You Or Have You Ever Used Any Other Forms Of Tobacco Or Nicotine? No Information not available 09/16/2024 Do You Want To Talk About Contraception Or Prevention During Your Visit Today? No - I Do Not Want To Talk About Contraception Today Because I Am Here For Something Else Information not available 09/16/2024 Do You Have Any Future Plans To Get ? No, I Don't Want To Become Information not available 09/16/2024 What Is Your Status? Not Information not available 09/16/2024 What Is Your Reason For Having No Contraceptive Method At Start Of This Visit? Other Information not available 09/16/2024 Sex: Female Functional Status Question Answer Note LastModified by Organizat ion Details LastModified Time Do you have difficulty walking or climbing stairs? Yes Information not available 09/16/2024 Do you have transportation difficulties? No Information not available 09/16/2024 Are you able to walk? YESASSIST Information not available 09/16/2024 Do you have difficulty doing errands alone? No Information not available 09/16/2024 Are you able to care for yourself? Yes Information n ot available 09/16/2024 Do you have difficulty dressing or bathing? No Information not available 09/16/2024 What is your exercise level? Occasional Information not available 09/16/2024 Mental Status Question Answer Note LastModified by Organization D etails LastModified Time Do you have difficulty concentrating, remembering or making decisions? No Information no t available 09/16/2024 Family History Nothing Reported Notes:? Coronary artery disease Brother 50 ? Heart disease Brother ? Dementia Brother parkinson's ? Diabetes Brother ? Alcohol abuse Brother ? Coronary artery disease Brother 50 ? Cancer Brother liver CA ? Diabetes Brother ? Alcohol abuse Brother ? Cancer Mother breast ca ? Alcohol abuse Father ? Early Father Bipolar Son Medical History No medical history recorded. Gynecological HistoryNo gynecological history recorded. Obstetrics History GPAL:G 0 P 0 0 0 0 Immunizations Vaccine Type Date Status Note Provider Nam e and Address Organization Details Recorded Time Influenza, adjuvanted, quadrivalent, PF 1 completed Not Available [facility] 06/19/2024 02:33:00 pneumococcal, unspecified formulation 5 completed Not Available [facility] 06/19/2024 02:33:01 influenza, unspecified formulation 5 completed Not Available [facility] 06/19/2024 02:33:01 Past Encounters Encounter ID Performer Location Encounter Start Date Encounter Closed Date Diagnosis/Indication Diagnosis SNOMED-CT Code Diagnosis ICD10 Code Diagnosis Note [id number] Frank Mehta MD [facility] [address] [address] 06/18/2024 10:58:26 06/18/2024 13:00:48 Hypertensive disorder [id number] I10 BP well-contr olled on current meds Mixed hyperlipidemia 267 [id number] E78.2 Well-contr olled on current statin Secondary diabetes mellitus 8306125 E08.65 Sugars well-contr olled with last A1c at 7%. She is following with Endo and may need med adjustment as she is dipping low too often now. [id number] Dain Bonilla MD [facility] [address] [address] 08/17/2024 11:37:41 08/17/2024 12:25:00 Hyperglycemia due to type 2 diabetes mellitus [id number] 29166 E11.65 Z79.4 Her last A1c level was at 7.4%. She is on Toujeo 34 units, Trulicity 3 mg once weekly, and glipizide extended release 10 mg. The continuous glucose monitor was downloaded numbers have been in range 80% of the time with a GMI of 6.9% and a variabilit y of only 22.6%. She does have occasional dietary indiscreti on. She is overall doing quite well I would like her to continue with 30 units of the long-actin g insulin. And continue with the Trulicity. [id number] Frank Mehta MD [facility] [address] [place] [address] [place] [address] 09/16/2024 12:54:38 09/16/2024 14:03:21 General examination of patient [id number] Z00.00 Patient gets her mammo every year at [facility] radiology in [place]. No new concerns found with today's screenings . Asthma [id number] J45.90 9 Some breathing issues that pulmonary states is not her lungs and must be cardiac. Cardiology states it is not her heart and must be her lungs. Inhalers have not been helpful. She is thinking of switching to a local pulmonolog ist. Benign ess ential hypertension 2509865 I10 BP well-contr olled on current meds Chronic ki dney disease stage 3 [id number] N18.30 Stable on recent blood work Type 2 ash betes mellitus without complication [id number] E11.9 Sugars are well-contr olled and follows with Endo regularly. Patient uses CGM to track her sugars at home. Health Concerns Section Related Observation LastModified by Organization Detai ls LastModified Time None Recorded Concern Status LastModified by Organization Details LastModified Time None Recorded Advance Directives Directive Y: Payers Encounter Date Sequence Insurance Name Policy Number Policy Paul Covered Member ID Paul Member ID Guarantor Name 06/18/2024 2 [employer] OPTIONS (MEDICARE SUPPLEMENT) Alon Springer [id number] Alon Springer 06/18/2024 1 MEDICARE B-CT: NGS Alon Springer [id number] Alon Springer 08/17/2024 2 [employer] OPTIONS (MEDICARE SUPPLEMENT) Alon Springer [id number] Alon Sprinegr 08/17/2024 1 MEDICARE B-CT: NGS Alon Springer [id number] Alon Springer 09/16/2024 2 [facility] HEALTH[facility] OPTIONS (MEDICARE SUPPLEMENT) Alon Springer [id number] Alon Springer 09/16/2024 1 MEDICARE B-CT: NGS Aoln Springer [id number] Alon Springer Notes Date Note Type Note Provider Name and Address Organization Details Recorded Time 06/18/20 24 text/htm l Diabetes F/UReported bypatient.Notes:A1c 7.0 on 06/01. Saw Endo & changed Glipizide to ER. Was having too many lows. Now she thinks she is having more highsHyperlipidemiaReported bypatient.Duration:chronic Prior Tests:lowest LDL-C level: 56 date: (05/20/24); TGs went from 451 to 188. Taking Fenofibrate 30 mins before BF instead of after eating Control:improving Adherence to Treatment Plan:follows recommended dietNotes:Chronic back pain: Back injections have not been helpful. Finds Lido patches work better Patient here for 3-month follow-up diabetes, hypertension, hyperlipidemia. Frank Mehta MD [address] [place], [address], [facility] - [employer] 07/03/2024 11:50:48 08/17/19 25 text/htm l Patient is a 83 y.o. 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 She is a diabetic who has had some difficulty controlling blood sugars with an A1c level running in the 8% range on high-dose glipizide 10 mg twice daily and Trulicity 3 mg weekly. She wears a continuous glucose monitor. She denies any problems with bowel movements no diarrhea and no increased abdominal discomfort. She has been taking medication for GERD for over 10 years currently omeprazole.? ? 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 Denies any smoking denies any alcohol intake.? ? ?Family history diabetes affect her 2 brothers and her maternal aunt. 2 of her brothers had high cholesterol high blood pressure and heart disease. The mother had breast cancer.? ? ?She has a personal history of asthma, high blood pressure, high cholesterol, gallstone, fatty liver, and diabetes which was diagnosed over 20 years ago.? ? ?Surgical history include appendectomy, carpal tunnel, knee replacement bilaterally, hip replacement bilaterally. She also has back decompression and fusion. Dain Bonilla MD [address] [place], [address], [facility] 08/18/2024 08:38:36 09/17/19 25 text/htm l Here for Annual Wellness.Tobacco use {{never smoked or vaped* former smoker current smoker/vaping}} EtOH use{{not at all* rare occasional socially d aily moderate daily heavy}} Drugs {{none former* MJ illicit drus IV drugs other___}}occ'l MJ gummies-stopped Current opioid Rx {{yes no*}} {{stable pain not well-controlled n/a*}} Advanced Care Directive {{HCP or living will* discussed with patient or patient's next of kin}} Diet {{generally healthy low fat/low cholesterol low carb low salt vegetarian weight loss unhealthy low carb at times#}} FHx updated {{yes* no}} Health screening schedule updated {{yes* no}} Needs referral to Health educator or MH therapist {{yes no*}} Patient self-reported Health Risk Assessment handout reviewed and scanned in Frank Mehta MD [address] [place], [address], [facility] 09/16/2024 14:12:28 OBGyn Episode No OBEpisode recorded.
--- OUTSIDE RECORDS SUMMARY | 2024-10-19 15:54 | XMS_ITS | Clinical Summary ---
Author Organization [facility] Address [address] [place] [address] Care Team Providers Care Cash Applications Analyst Name Role Phone Frank Trejo MD Primary Care Provider [phone] Allergies Active Allergy Reactions Criticality Noted Date Comments Adhesive Tape Medium 02/01/2015 Other reaction(s): skin reaction Bacitracin Rash Low 08/29/2015 Lisinopril Other (See Comments) Medium 08/29/2015 COUGH Meloxicam Palpitations Low 03/24/2017 GI upset Metformin Diarrhea 10/25/2021 Tramadol Nausea Only Low 08/29/2015 Tyloxapol Nausea And Vomiting High 08/29/2015 Midazolam Low 08/21/2016 HICCUPS Ondansetron Itching Medium 08/29/2015 Medications Medication Sig Dispensed Refills Start Date End Date Status cyanocobalamin 100 MCG tablet 1 tablet (100 mcg total) daily. 0 Active Multiple Vitamin (MULTIVITAMINS PO) Take 1 tablet by mouth daily. Multivitamins CAPS Refills: 0 Active 0 Active amoxicillin (AMOXIL) 500 MG capsule Take 4 tablets 1 hour prior to dental appointment 20 capsule 1 01/18/2022 Active acetaminophen (TYLENOL) 650 MG CR tablet Take 1 tablet (650 mg total) by mouth 2 (two) times a day. 0 Active vitamin D3 (cholecalciferol) 25 MCG (1000 UT) tablet Take 1 tablet (25 mcg total) by mouth daily. 0 Active Turmeric 500 MG CAPS Take by mouth. 0 Active Multiple Vitamins-Minerals (ZINC PO) Take by mouth. 0 Active albuterol 108 (90 Base) MCG/ACT inhaler Inhale 2 puffs into the lungs every 4 (four) hours as needed for wheezing. 0 Active gabapentin (NEURONTIN) 100 MG capsule Take 2 capsules (200 mg total) by mouth every night at bedtime. 30 capsule 5 06/04/2023 Active atorvastatin (LIPITOR) tablet 40 mg TAKE ONE TABLET BY MOUTH EVERY DAY 90 tablet 10 08/04/2023 Active Continuous Blood Gluc Sensor (FreeStyle Renaldo 2 Sensor) MISC 1 each by Does not apply route every 14 (fourteen) days. 2 each 08/22/2023 Active Global Ease Inject Pen [place] 31G X 5 MM MISC USE EVERY DAY with toujeo 100 each 09/08/2023 Active LORazepam (ATIVAN) 0.5 MG tablet Take 1 tablet (0.5 mg total) by mouth every 6 (six) hours as needed. 1-2 TABS 30 tablet 0 12/04/2023 Active omeprazole (PriLOSEC) 20 MG capsule TAKE ONE CAPSULE BY MOUTH EVERY DAY 90 capsule 3 02/07/2024 Active ammonium lactate (AMLACTIN) 12 % cream apply neck down THREE times a WEEK THEN daily as tolerated 0 12/26/2023 Active Bacillus Coagulans-Inulin (ALIGN PREBIOTIC-PROBIOTIC PO) Take by mouth. 0 Active carvedilol (COREG) 3.125 MG tablet TAKE ONE TABLET TWICE DAILY WITH meals 180 tablet 1 04/18/2024 Active losartan (COZAAR) 100 MG tablet TAKE ONE TABLET BY MOUTH EVERY DAY 90 tablet 1 05/01/2024 Active hydroCHLOROthiazide (HYDRODIURIL) tablet 25 mgIndications:Essent ial (primary) hypertension TAKE ONE TABLET BY MOUTH EVERY DAY 90 tablet 3 05/15/2024 Active Trulicity 3 MG/0.5ML subcutaneous pen-injector inject 0.5ml UNDER THE SKIN ONCE WEEKLY 2 mL 5 05/25/2024 Active glipiZIDE (GLUCOTROL XL) ER 24 hr tablet 10 mg Take 1 tablet (10 mg total) by mouth daily. 90 tablet 2 06/01/2024 Active fenofibrate micronized (LOFIBRA) 200 MG capsuleIndications:M ixed hyperlipidemia take ONE CAPSULE (200mg total) BY MOUTH EVERY MORNING BEFORE breakfast 90 capsule 1 06/14/2024 Active Active Problems Problem Noted Date Diagnosed Date History of arthroplasty of left knee 09/21/2023 09/21/2023 Cholelithiases 09/21/2023 09/21/2023 Anxiety 09/21/2023 09/21/2023 COVID-19 09/29/2022 Overview: 11/09/2021 Anemia 03/19/2022 HTN (hypertension) 03/19/2022 Disorder of intervertebral disc 03/19/2022 Gastroesophageal reflux disease 03/19/2022 Iron deficiency anemia 03/19/2022 Neuropathy 03/19/2022 Type 2 diabetes mellitus wit hout complication, without long-term current use of insulin 08/13/2018 Knee joint stiffness, bilateral 07/15/2018 Lumbar back pain 04/17/2018 Dyspnea on exertion 02/05/2018 Precordial chest pain 02/05/2018 Aortic valve sclerosis 08/11/2017 Diastolic dysfunction 08/11/2017 Right hip pain 05/28/2017 History of pulmonary embolism 03/25/2017 Asthma 03/24/2017 CKD (chronic kidney disease) stage 3, GFR 30-59 ml/min 08/12/2016 Essential hypertension, benign 08/12/2016 Diabetes mellitus due to und erlying condition with hyperglycemia, without long-term current use of insulin 08/12/2016 Mixed hyperlipidemia 08/12/2016 Mitral valve annular calcification 08/12/2016 BPV (benign positional vertigo) 03/22/2015 09/21/2023 Arthropathy 02/16/2015 Urinary incontinence COPD (chronic obstructive pulmonary disease) Resolved Problems Problem Noted Date Diagnosed Date Resolved Date Pulmonary embolism 03/19/2022 Immunizations Name Administration Dates Next Due Influenza Quad (Fluad) 0.5 mL >65Yrs (AIIV4) 01/2021 Influenza Vaccine, Unspecified formulation 03/22 Pneumococcal, Unspecified Formulation 03/22/2015 Family History Medical History Relation Name Comments [...] Packs/Day Years Used Date Smoking Tobacco: Never Smokeless Tobacco: Never Tobacco Cessation:Counseling Given: Not Answered Alcohol Use Standard Drinks/Week Comments Yes 0 (1 standard drink = 0.6 oz pur e alcohol) rare Sex and Gender Information Value Date Recorded Sex Assigned at Female 02/01/2021 4:15 PM EDT Gender Identity Not on file Sexual Orientation Not on file Job Start Date Occupation Industry Not on file Not on file Not on file Last Filed Vital Signs Vital Sign Reading Time Taken Comments Blood Pressure 140/72 06/01/2024 1:30 PM EST Pulse 76 06/01/2024 1:30 PM EST Temperature 36.7 ??C (98 ??F) 09/18/2023 1:18 PM EST Respiratory Rate 18 03/18/2024 11:48 AM EDT Oxygen Saturation 96% 06/01/2024 1:30 PM EST Inhaled Oxygen Concentration - - Weight 64.9 kg (143 lb) 06/01/2024 1:30 PM EST Height 151.1 cm (4' 11.5 ) 06/01/2024 1:30 PM ES T Body Mass Index 28.4 06/01/2024 1:30 PM EST Plan of Treatment Health Maintenance Due Date Last Done Comments COVID-19 Vaccine (#1) 1945 Pneumococcal Vaccine (1 of 2 - PCV) 1946 03/22/2015 DTap / Tdap / Td (1 - Tdap) 11/01/1959 Shingrix-Zoster Vaccine (1 of 2) 11/01/1959 Osteoporosis Screening (DEXA Scan) 2005 RSV Adult > 60+ Yrs or (1 - 1-dose 75+ series) 11/01/2015 Diabetes: Eye Exam (No Retinopathy) 01/31/2023 01/31/2021 Diabetes: Microalbumin Test 02/22/2023 02/22/2022 Influenza Vaccine (#1) 2024 04/19/2021 Diabetes: Foot Exam 07/31/2024 07/31/2023 Depression Screening 09/17/2024 09/18/2023, 09/18/19 24 Fall Risk Assessment 09/17/2024 09/18/2023, 09/18/19 24 Preventative Health Evaluation 09/17/2024 09/18/2023, 09/18/2023 Hemoglobin A1C Due 11/29/2024 06/01/2024, 0 01/27/2024, 06/19/2023, Additional history exists Hepatitis B Vaccines Aged Out No long er eligible based on patient's age to complete this topic RSV Ped < 20 months Aged Out No longe r eligible based on patient's age to complete this topic Goals Goal Patient Goal Type Associated Problems Recent Progress Patient-Stated? Author Diet: Eat a well-balanced diet [facility] Improving( 12:43 PM EDT) No Jenny Ness, MS RDN Note: 1. Keep Carb portions to fist size or 45 gm at meals.: Following 50% 2. Increase hydration with non calorie beverages.: following 75 % 3. Increase vegetable intake at meals.: Following 75% 4. Add protein like egg or lf cheese at breakfast. : Following Diabetes: Other Wellness Coaching Improving( 12:42 PM EDT) No Imani Parks RN Note: Patient to check Renaldo AGP reports to monitor progress: FOllowing Diabetes: Other Wellness Coaching Improving( 12:42 PM EDT) No Imani Parks RN Note: Patient to record meals within Renaldo juan francisco if she experiencing post prandial rise following. : following partially Medical Devices Implanted Type Area Personalized Living Assistant Device Identifier Shelf Expiration Date Model / Serial / Lot Shell D 50mm Primary Hemispherical Cluster Hole Tritanium - [id number] - [id number] Implanted:Qty: 1 on 08/29/2016 by Daniel Kapadia MD at [facility] Left: Hip [employer] 08/04/2021 502-03-50D / / [id number] Screw Trident Secur-Fit Torx 30mm 6.5mm Titanium Bone - [id number] - [id number] Implanted:Qty: 1 on 08/29/2016 by Daniel Kapadia MD at [facility] Left: Hip [employer] 06/02/2021 0301-6997- 1 / / [id number] Screw Trident 25mm 6.5mm Titanium Acetabular Cancellous - [id number] - [id number] Implanted:Qty: 1 on 08/29/2016 by Daniel Kapadia MD at [facility] Left: Hip [employer] 07/17/2021 9938-2414- 1 / / [id number] Insert Trident 10d D 32mm X3 Acetabular Hip - [id number] - [id number] Implanted:Qty: 1 on 08/29/2016 by Daniel Kapadia MD at [facility] Left: Hip [employer] 07/16/2021 623-10-32D / / [id number] Stem Accolade Ii 127d 2 Femoral Hip - [id number] - [id number] Implanted:Qty: 1 on 08/29/2016 by Daniel Kapadia MD at [facility] Left: Hip [employer] 01/11/2018 9086-7762 / / [id number] Head V40 -4mm 32mm Biolox Delta Femoral Hip - [id number] - [id number] Implanted:Qty: 1 on 08/29/2016 by Daniel Kapadia MD at [facility] Left: Hip [employer] 01/22/2021 6570-0-032 / / [id number] Advance Directives For more information, please contact: [phone] Documents on File Type Date Recorded Patient Consultant Rn Expl anation Advance Directive and Living Will 08/29/2016 5:13 AM 2016 Latest Code Status on File Code Status Date Activated Date Inactivated Comments Full Code 08/29/2016 9:23 AM 09/01/2016 6:09 PM This code status was ascertained in the following way: per living will or healthcare instructions. Code Status History Code Status Date Activated Date Inactivated Comments Full Code 08/29/2016 5:30 AM 08/29/2016 9:23 AM This code status was ascertained in the following way: Discussed with the patient at her preop appointment. Care Teams Cash Applications Analyst Relationship Specialty Start Date End Date Frank Trejo MD PCP - General Family Medicine 03/19/22
== END 2024-10-19 13:39 | disposition home or self-care (01) ==
LOC: HO.HOS 13:05
PROVIDERS: PCP Family Medicine; Visit Provider Orthopaedic Surgery
DX: M25.562 Pain in left knee (principal)
CPT/HCPCS: 99213; G2211

== ENCOUNTER → 2024-10-19 13:06 | Outpatient (BNV) | payer MEDICARE, SELFPAY | PROVIDERS: Visit Provider Radiology Diagnostic Radiology | DX: M25.462 Effusion, left knee (principal); Z96.652 Presence of left artificial knee joint | CPT/HCPCS: 73562 ==

== ENCOUNTER 2024-10-28 06:18 | Outpatient (REF) | payer MEDICARE, SELFPAY ==
--- OUTSIDE RECORDS SUMMARY | 2024-10-28 06:22 | XMS_ITS | Data Portability ---
Author Organization [place] - [email or web address] [facility] C[facility] ADMIN Address [address] [place] [address] Care Team Providers Care Gas Engine Operator Name Role Phone DAIN BONILLA Pond Supervisor FRANK MEHTA Referring Provider FRANK MEHTA Primary Care Provider [phone] SAMSON ODEN [employer] ABRIL CHIN Vehicle Operator Assessment Encounter Date Assessment Date Assessment [...] glucose, fingerst ick, blood 2024 [id number] [email or web address] [facility], [address] [facility], [address] Floor, [place], [address], 08/18/2024 08:38:32 Referral None recorded . Procedures None recorded . Surgeries None recorded . Imaging None recorded . Medication Orders None recorded . Patient TargetsNo targets recorded. Patient Instructions Encounter Date Encounter Id Patient Instructions Last Modified By Organization Details Last Modified Time 09/16/2024 [id number] well visit, over 65: care instructions Not available 09/16/2024 14:09:05 medicare preventive services guide Not available 09/16/2024 14:09:05 Reason for Referral None Reported. Results Created Date Observation Date Name Description Value Unit Range Abnormal Flag Note LastModifiedBy Organization Detail LastModifiedTime 08/17/1908/17/2024 gluco se, daron rssulma k, blood Blood Glucose: mg/dl 181 Not Available [facility] [address], [place], [address], 08/11/2024 10:37:49 Result Notes None recorded. Problems Name Problem SNOMED Code Status Onset Date Resolution Date Notes Provider Name and Address Organization Details Recorded Time Benign essential hypertens ion 7348396 Active 2016 Essential hypertens ion, benign Not Available [facility] 4 09:37:52 Precordia l pain 06457251 Active 2017 Precordia l chest pain Not Available [facility] 4 09:37:53 Secondary diabetes mellitus 2605799 Active 2016 Diabetes mellitus due to underlyin g condition with hyperglyc emia, without long-term current use of insulin Not Available [facility] 4 09:37:53 Diastolic dysfuncti on 0909540 Active 2017 Diastolic dysfuncti on Not Available [facility] 4 09:37:53 Bilateral stiffness of knee joints 54239107196 973897 Active 2018 Knee joint stiffness , bilateral Not Available [facility] 4 09:37:53 Biliary calculus 834641579 Active 2023 Cholelith iases Not Available [facility] 4 09:37:53 Arthropat hy 015332555 Active 2014 Arthropat hy Not Available [facility] 4 09:37:53 History of pulmonary embolus 331301566 Active 2016 History of pulmonary embolism Not Available [facility] 4 09:37:53 Chronic obstructi ve pulmonary disease 87317871 Active 2022 COPD (chronic obstructi ve pulmonary disease) Not Available [facility] 4 09:37:54 Low back pain 422037245 Active 2017 Lumbar back pain Not Available [facility] 4 09:37:54 History of arthropla sty of left knee 01953388097 76277 Active 2023 History of arthropla sty of left knee Not Available [facility] 4 09:37:54 Neuropath y 176217500 Active 2021 Neuropath y Not Available [facility] 4 09:37:54 Mitral valve annular calcifica tion 937047134 Active 2016 Mitral valve annular calcifica tion Not Available [facility] 4 09:37:54 Mixed hyperlipi demia 713687988 Active 2016 Mixed hyperlipi demia Not Available [facility] 4 09:37:54 Gastroeso phageal reflux disease 207166628 Active 2021 Gastroeso phageal reflux disease Not Available [facility] 4 09:37:55 Hypertens toñito disorder 60581801 Active 2021 HTN (hyperten ann) Not Available [facility] 4 09:37:55 COVID-19 822172045 Active 2022 COVID-19 - Overview: Formattin g of this note might be different from the original. 11/09/2021 Not Available [facility] 4 09:37:55 Anxiety 80097275 Active 2023 Anxiety Not Available [facility] 4 09:37:55 Chronic kidney disease stage 3 507101976 Active 2016 CKD (chronic kidney disease) stage 3, GFR 30-59 ml/min Not Available [facility] 4 09:37:55 Asthma 613144380 Active 2016 Asthma Not Available [facility] 4 09:37:55 Iron deficienc y anemia 69863125 Active 2021 Iron deficienc y anemia Not Available [facility] 4 09:37:55 Dyspnea on exertion 59593891 Active 2017 Dyspnea on exertion Not Available [facility] 4 09:37:56 Pain in right hip joint 72041101044 9102 Active 2016 Right hip pain Not Available [facility] 4 09:37:56 Anemia 215484863 Active 2021 Anemia Not Available [facility] 4 09:37:56 Type 2 diabetes mellitus without complicat ion 939210484 Active 2018 Type 2 diabetes mellitus without complicat ion, without long-term current use of insulin Not Available [facility] 4 09:37:56 Intervert ebral disc disorder 57605092 Active 2021 Disorder of intervert ebral disc Not Available [facility] 4 09:37:56 Benign paroxysma l positiona l vertigo 082139757 Active 2014 BPV (benign positiona l vertigo) Not Available [facility] 4 09:37:57 Aortic valve sclerosis 92262565 Active 2017 Aortic valve sclerosis Not Available [facility] 4 09:37:57 Urinary incontine nce 630544709 Active 2022 Urinary incontine nce Not Available [facility] 4 09:37:57 Hyperglyc emia due to diabetes mellitus 643873912 Active 2016 Diabetes mellitus due to underlyin g condition with hyperglyc emia, without long-term current use of insulin Not Available [facility] 4 09:37:59 Hip pain 07003979 Active 2016 Right hip pain Not Available [facility] 4 09:38:00 Hyperglyc emia due to type 2 diabetes mellitus 39865501478 9109 Active 2024 Dian Bonilla MD [address] [place], [address] , [facility] 5 08:38:00 Notes:Some problems listed i n Documents: #[id number], #[id number] could not be added to this patient's chart. Please review these documents and add these problems to the patient's chart manually as needed. Problem Notes None recorded. Medical Equipment None Reported. Allergies Allergen ID Allergen Name Allergen Category Reaction Reaction Severity Criticality Documentation Date Start Date Code Code System Note Provider Name and Address Organization Details Recorded Time 38972 metformin medicatio n Not available Not available Not available 06/14/20242021 6809 RxNorm React ion: Diarr hea, sever ity: Unkno wn Not Available [facility] 19:24:31 87876 lisinopri l medicatio n Not available Not available Not available 06/14/20242015 06002 RxNorm React ion: Other (See Comme nts), sever ity: Unkno wn;CO UGH Not Available [facility] 4 19:24:31 84424 meloxicam medicatio n Not available Not available Not available 06/14/20242016 44873 RxNorm React ion: Palpi tatio ns, sever ity: Unkno wn;GI upset Not Available [facility] 4 19:24:32 23986 tramadol medicatio n Not available Not available Not available 06/14/20242015 09336 RxNorm React ion: Nause a Only, sever ity: Unkno wn Not Available [facility] 4 19:24:32 77483 midazolam medicatio n Not available Not available Not available 06/14/20242016 6960 RxNorm HICCU PS Not Available [facility] 4 19:24:32 60999 bacitraci n medicatio n Not available Not available Not available 06/14/20242015 1291 RxNorm React ion: Rash, sever ity: Unkno wn Not Available [facility] 4 19:24:32 32351 ondansetr on medicatio n Not available Not available Not available 06/14/20242015 24438 RxNorm React ion: Itchi ng, sever ity: Unkno wn Not Available [facility] 4 19:24:32 70016 tyloxapol medicatio n Not available Not available Not available 06/14/20242015 45229 RxNorm React ion: Nause a And Vomit ing, sever ity: Unkno wn Not Available [facility] 4 19:24:32 90650 adhesive tape environme nt,medica tion Not available Not available Not available 06/14/20242014 26983 UNK Other react ion(s ): skin react ion Not Available [facility] 19:24:35 Medications Name Sig Start Date Stop Date Status Note LastModified by Organization Details LastModified Time global ease inject pen neeedles 31g x5mm 31g x 5 mm misc active Not Available Not Available Not Available fenofibrate micronized 160 mg tablet Take [...] TAKE ONE TABLET TWICE DAILY WITH meals 2024 active Not Available Not Available Not Avai lable acetaminoph en ER 650 mg tablet,exte nded [...] completed Not Available Not Available Not Available [employer] SoloStar U-300 Insulin 300 unit/mL (1.5 mL) [...] /min 97 % 97 % 28.6 kg/m2 78796.7 1 g 122 mm[Hg] 82 mm[Hg] Danamackenzie [place] [facility] 4 11:18:01 Date Recorded Body height Body mass index (BMI) Body weight Oxygen saturation Oxygen saturation in Arterial blood by Pulse oximetry Heart rate Systolic blood pressure Diastolic blood pressure Provider Name and Address Organization Details Last Updated DateTime 5 150.5 cm 28.6 kg/m2 14205.7 1 g 97 % 97 % 77 /min 146 mm[Hg] 64 mm[Hg] FELI HALEY [facility] 5 11:47:05 Date Recorded Body height Body mass index (BMI) Body weight Body temperature Oxygen saturation Oxygen saturation in Arterial blood by Pulse oximetry Heart rate Systolic blood pressure Diastolic blood pressure Provider Name and Address Organization Details Last Updated DateTime 5 150.5 cm 29.2 kg/m2 03907.4 9 g 97.3 [degF] 95 % 95 % 88 /min 132 mm[Hg] 78 mm[Hg] Daan Richardsillo [facility] 5 13:21:15 Social History Question Answer Notes LastModified by Organizat ion Details LastModified Time Tobacco Smoking Status Never Smoker Not Available [facility] 06/15/2024 19:14:52 Do You Have An Advance [...] Have You Had Close Contact With A Laboratory-lennyi rmed COVID-19 While That Case Was Ill? No [...] Or The Highest Degree You Have Received? [id number] Information not available 09/16/2024 Do You Have [...] Do You Have A Medical Power Of Cluster Bore Operator? Yes Information not available 09/16/2024 Do You [...] Anxious, Or Unable To Sleep At Night)? AC9965-4 Information not available 09/16/2024 Do You Use [...] PF 1 completed Not Available [facility] 06/19/2024 02:33:00 pneumococcal, unspecified formulation 5 completed Not Available [facility] 06/19/2024 02:33:01 influenza, unspecified formulation 5 completed Not Available [facility] 06/19/2024 02:33:01 Past Encounters Encounter ID Performer Location Encounter Start Date Encounter Closed Date Diagnosis/Indication Diagnosis SNOMED-CT Code Diagnosis ICD10 Code Diagnosis Note [id number] [facility] [address] [address] 06/18/2024 10:58:26 06/18/2024 13:00:48 Hypertensive disorder 86558096 I10 BP well-contr olled on current meds Mixed hyperlipidemia 267 885139 E78.2 Well-contr olled on current statin Secondary diabetes mellitus 7868531 E08.65 Sugars well-contr olled with last A1c at 7%. She is following with Endo and may need med adjustment as she is dipping low too often now. [id number] aDin Bonilla MD [facility] [address] [address] 08/17/2024 11:37:41 08/17/2024 12:25:00 Hyperglycemia due to type 2 diabetes mellitus 9573362639 16474 E11.65 Z79.4 Her last A1c level was [...] g insulin. And continue with the Trulicity. [id number] Frank Mehat MD [facility] [place] [address] [place] [address] 09/16/2024 12:54:38 09/16/2024 14:03:21 General examination of patient [id number] Z00.00 Patient gets her mammo every year at [facility] radiology in [place]. No new concerns found with today's screenings . Asthma 946948417 J45.90 9 Some breathing issues that pulmonary states is not her lungs and must be cardiac. Cardiology states it is not her heart and must be her lungs. Inhalers have not been helpful. She is thinking of switching to a local pulmonolog ist. Benign ess ential hypertension 0467251 I10 BP well-contr olled on current meds Chronic ki dney disease stage 3 909858797 N18.30 Stable on recent blood work Type 2 ash betes mellitus without complication 141372271 E11.9 Sugars are well-contr olled and follows [...] [employer] HE[employer]CARE OPTIONS (MEDICARE SUPPLEMENT) Alon Springer [id number] Alon Springer 06/18/2024 1 MEDICARE B-CT: NGS Alon Springer [id number] Alon Springer 08/17/2024 2 [employer] HE[employer] OPTIONS (MEDICARE SUPPLEMENT) Alon Springer [id number] Alon Springer 08/17/2024 1 MEDICARE B-CT: NGS Alon Springer [id number] Alon Springer 09/16/2024 2 [facility] HEALTHCARE OPTIONS (MEDICARE SUPPLEMENT) Alon Springer [id number] Alon Springer 09/16/2024 1 MEDICARE B-CT: NGS Alon Springer [id number] Alon Springer Notes Date Note Type Note [...] diabetes, hypertension, hyperlipidemia. Frank Mehta MD [address] [place], [address], [facility] 07/03/2024 11:50:48 08/17/19 25 text/htm l [...] decompression and fusion. Dain Bonilla MD [address] [place], [address], [facility] 08/18/2024 08:38:36 09/17/19 25 text/htm l [...] no}} Needs referral to Health educator or therapist {{yes no*}} Patient self-reported Health Risk Assessment handout reviewed and scanned in Frank Mehta MD [address] [place], [address], [facility] 09/16/2024 14:12:28 OBGyn Episode No OBEpisode recorded.
--- OUTSIDE RECORDS SUMMARY | 2024-10-28 06:22 | XMS_ITS | Clinical Summary ---
Author Organization [facility] Address [address] [place] [address] Care Team Providers Care Mass Spectroscopist Name Role Phone Frank Trejo MD Primary Care Provider [phone] Allergies Active Allergy Reactions Criticality Noted Date [...] each 08/22/2023 Active Global Ease Inject Pen [place] 31G X 5 MM MISC USE EVERY [...] Patient-Stated? Author Diet: Eat a well-balanced diet [facility] Improving( 12:43 PM EDT) No Jenny Ness, [...] following partially Medical Devices Implanted Type Area Galvanizer Zinc Device Identifier Shelf Expiration Date Model / Serial / Lot Shell D 50mm Primary Hemispherical Cluster Hole Tritanium - [id number] - [id number] Implanted:Qty: 1 on 08/29/2016 by [place]ia [place] [facility] Left: Hip [employer] 08/04/2021 [id number] / / [id number] Screw Trident Secur-Fit Torx 30mm 6.5mm Titanium Bone - [id number] - [id number] Implanted:Qty: 1 on 08/29/2016 by Daniel Kapadia MD [place] [facility] Left: Hip [employer] 06/02/2021 [id number] 1 / / [id number] Screw Trident 25mm 6.5mm Titanium Acetabular Cancellous - [id number] - [id number] Implanted:Qty: 1 on 08/29/2016 by Daniel [facility]adia [place] [facility] Left: Hip [employer] 07/17/2021 [id number] 1 / / [id number] Insert Trident 10d D 32mm X3 Acetabular Hip - 636857 - [id number] Implanted:Qty: 1 on 08/29/2016 by Daniel Kapadia MD [place] [facility] Left: Hip [employer] 07/16/2021 [id number] / / [id number] Stem Accolade Ii 127d 2 Femoral Hip - 283726 - [id number] Implanted:Qty: 1 on 08/29/2016 by Daniel Kapadia MD [place] [facility] Left: Hip [employer] 01/11/2018 [id number] / / [id number] Head V40 -4mm 32mm Biolox Delta Femoral Hip - [id number] - [id number] Implanted:Qty: 1 on 08/29/2016 by Daniel Kapadia MD [place] [facility] Left: Hip [employer] 01/22/2021 6570-0-032 / / [id number] Advance Directives For more information, please contact: [phone] Documents on File Type Date Recorded 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 Care Teams Mass Spectroscopist Relationship Specialty Start Date End Date Frank Trejo MD PCP - General Family Medicine 03/19/22
== END 2024-10-28 06:19 | disposition home or self-care (01) ==
LOC: CF 06:18
PROVIDERS: Visit Provider Internal Medicine
DX: M25.562 Pain in left knee (principal); M25.561 Pain in right knee; Z96.653 Presence of artificial knee joint, bilateral; G89.28 Other chronic postprocedural pain
CPT/HCPCS: 64555; C1778; J2003

== ENCOUNTER 2024-10-28 11:38 | Outpatient (AMB) | payer MEDICARE, SELFPAY ==
[2024-10-28 11:47] VITALS: BP 136/66; PULSE 68; RESP 16; O2SAT 98
--- NOTE | 2024-10-28 11:47 | MHC.OFFVIS ---
Vital Signs 10/28/24 11:47 BP 136/66 Blood Pressure Location Lt brachial Position Sitting Respiration 16 Pulse 68 Pulse Source Pulse Oximeter Pulse Oximetry (%) 98 Oxygen Delivery Method Room Air Intake Visit Reasons: Left saphenous Sprint Director Patient Financial Services Required: No Allergies lisinopril Allergy (Mild, Verified 10/28/24 11:48) unknown oxycodone [From Tylox] Allergy (Mild, Verified 10/28/24 11:48) unknown Medication List - Last Reconciled 10/28/24 by Juanis Gilliland LPN acetaminophen (Tylenol) 650 mg PO Q6H PRN albuterol sulfate 90 mcg/actuation inhalation amoxicillin 2,000 mg (4 x 500 mg) PO ONCE 1 day atorvastatin 40 mg PO DAILY carvedilol 6.25 mg PO BID cholecalciferol (vitamin D3) (Vitamin D3) 25 mcg PO DAILY dulaglutide (Trulicity) 3 mg subcut QWEEK fenofibrate 160 mg PO DAILY flash glucose sensor (FreeStyle Renaldo 2 Sensor kit) As directed gabapentin 200 mg (2 x 100 mg) PO BEDTIME glipizide ER 10 mg PO DAILY hydrochlorothiazide 25 mg PO DAILY insulin admin supplies As directed insulin glargine U-300 conc (Toujeo Max U-300 SoloStar) 26 units subcut DAILY lidocaine 5% leave on most painful area for up to 12 hrs topical losartan 100 mg PO DAILY multivitamin 1 tab PO DAILY omeprazole 20 mg PO DAILY HPI HPI Left saphenous Sprint: Details: Patient presents for scheduled procedure. Denies any recent cough, cold, infection, fever or other significant changes in medical history since last office visit. [facility] Surgical History History of hip surgery History of hip surgery Hx of knee surgery History of back surgery History of left knee surgery (~2013) Social History Patient Tobacco Use Status: Never used Tobacco Current occupational status: retired Current occupation: Left hand dominate Physical Exam Vital Signs: Last Vital Signs Pulse 68 10/28/24 11:47 Resp 16 10/28/24 11:47 BP 136/66 10/28/24 11:47 Pulse Ox 98 10/28/24 11:47 Oxygen Delivery Method Room Air 10/28/24 11:47 Office Procedures Details: Peripheral Nerve Stimulation Temporary Lead Placement, Ultrasound-Guided, Saphenous Nerve, Left ? After the risks, benefits and alternatives were discussed with the patient and informed consent was obtained, patient was placed in the supine position and padded to foster comfort. Appropriate skin and bony landmarks were identified, and pertinent vascular structures were located. The skin overlying the needle entry site was prepped and draped in sterile fashion. Ultrasound was used to identify the femoral artery, the femoral vein and the saphenous nerve. After identifying and marking the intended target along the course of the saphenous nerve, the skin around the planned entry point and the subcutaneous tissues were injected with local anesthetic. An introducer needle and stimulating probe were assembled, inserted and advanced along the intended course of the saphenous; nerve, taking care to maintain the proper depth of insertion as the introducer was advanced under ultrasound guidance. The introducer needle was delivered to a location in proximity to the nerve taking care not to puncture the femoral artery or the vein. Multiple stimulation parameters were used to deliver stimulation to the saphenous nerve in concert with stimulating at multiple positions around the nerve. Nerve target acquisition was confirmed noting generation of sensory and mild motor effects (paresthesia, muscle tension, etc) in the medial knee, leg and ankle; corresponding to the distribution of the saphenous nerve. Various electrical parameter combinations were tested, and the lead location was adjusted (physically relocated under ultrasound guidance) until the patient indicated medial knee paresthesia and tension overlapping the distribution of the patient?s typical region of pain. The stimulating probe was removed from the introducer and a percutaneous lead was guided through the needle and delivered to a location in similar proximity to the nerve. Final location was verified with electrical stimulation and documented. The introducer needle was removed, and the exposed end of the percutaneous lead was attached to an external stimulator unit. Various electrical parameter combinations were again tested until the patient indicated paresthesia and muscle tension overlapping the distribution of the patient?s typical region of pain. After confirming that lead impedance was in the normal range, the external unit was detached, the needle was removed, and the lead was anchored at the skin. The lead was threaded into the connector block and electrical continuity and desired patient response was confirmed. The connector block was attached to the external stimulator unit. The site was covered with a sterile occlusive dressing. A final ultrasound image was taken to document final placement. The patient was observed for stability of vital signs and comfort. Sprint PNS Device: Sprint PNS Device [id number] Percutaneous Peripheral Neuroelectrode Procedure: 75480 - Percutaneous Peripheral Neuroelectrode Procedure code (CPT) selection complete Office Meds lidocaine HCl 10 mg/mL (1 %) injection solution Performing Provider: Kalpesh Cervantes MD Performing Location[place] [facility] Administered by: Juanis Gilliland LPN on 10/28/24 12:23 Dose Route Admin Location Dispensed Lot Number Expiration Date NDC Customer Program Specialist 5 mL subcut 5 mL Assessment & Plan Assessment & Plan (1) Left knee pain: Code(s): M25.562 - Pain in left knee Category: Medical (2) Chronic knee pain after total replacement of both knee joints: Code(s): M25.561 - Pain in right knee; M25.562 - Pain in left knee; G89.28 - Other chronic postprocedural pain; Z96.653 - Presence of artificial knee joint, bilateral Category: Medical Plan Patient is status post left temporary saphenous nerve stimulator placement. Patient tolerated procedure well and was discharged home in stable condition with discharge instructions. All questions were answered. We will follow-up via telephone or in clinic to assess response to therapy. A follow-up appointment was made during today's visit. Orders: Orders US guide needle placement Today Marilou Low APRN, SUPERVISOR [employer]SE G89.28 - Other chronic postprocedural pain, M25.561 - Pain in right knee, M25.562 - Pain in left knee, Z96.653 - Presence of artificial knee joint, bilateral AMB Sprint PNS Today Kalpesh Cervantes MD M25.562 - Pain in left knee Coding Level of Care Code Procedure Only Diagnoses Left knee pain M25.562 Chronic knee pain after total replacement of both knee joints M25.561; M25.562; G89.28; Z96.653 CPT Codes Sprint PNS - Sprint PNS Device: Sprint PNS Device ([id number]) Sprint PNS - SPRINT: 34725 - Percutaneous Peripheral Neuroelectrode ([id number]) Implantable Device Implantable Device Implantable Devices Qty Customer Program Specialist Implant Date Expiration Date Analgesic PENS system 1 [employer] 10/28/24 04/05/26
--- OUTSIDE RECORDS SUMMARY | 2024-10-28 14:33 | XMS_ITS | Encounter Summary ---
Author Organization [facility] Address [address] [place] [address] Care Team Providers Care Gold Burnisher Name Role Phone Kadie Enamorado Md, MD Primary Care Provider Miley vailable Encounter Details Date Type Department Care Team Description 09/26/2020 Orders Only Pulmonology - [place] 175 [facility] [address] [place] [address] Kimo Anderson MD [address] [place] [address] Asthma, unspecified asthma severity, unspecified whether complicated, unspecified whether persistent; Shortness of breath Social History Tobacco Use Types Packs/Day Years Used Date Smoking Tobacco: Never Smokeless Tobacco: Never Alcohol Use Standard Drinks/Week Comments Yes 0 (1 standard drink = 0.6 oz pur e alcohol) Sex Assigned at Date Recorded Not on file documented as of this encounter Plan of Treatment Not on file documented as of this encounter Procedures Procedure Name Priority Date/Time Associated Diagnosis Comments [place] NONINVASIVE EAR/PULSE OXIMETRY OVERNIGHT MONITOR Routine 07/28/2020 Asthma, unspecified asthma severity, unspecified whether complicated, unspecified whether persistent Shortness of breath documented in this encounter Results * OXIMETRY,OVERNITE (07/28/2020) Kimo Anderson MD PERFORMABLES documented in this encounter Visit Diagnoses Diagnosis Asthma, unspecified asthma severity, unspecified whether complicated, unspecified whether persistent Shortness of breath documented in this encounter Care Teams Gold Burnisher Relationship Specialty Start Date End Date Kadie Enamorado MD, MD PCP - General Internal Medicine 09/08/17 documented as of this encounter
--- OUTSIDE RECORDS SUMMARY | 2024-10-28 14:33 | XMS_ITS | Encounter Summary ---
Author Organization [facility] Address [address] [place] [address] Care Team Providers Care Luggage Repairer Name Role Phone Community, Pcp Primary Care Provider Kadie Lopez Md, MD Primary Care Provider Miley vailable Kadie Enamorado Md, MD Primary Care Provider Miley vailable Encounter Details Date Type Department Care Team Description 07/12/2017 Orders Only Pulmonology [address] [place] [address] Marjorie Richard [facility] [address] [place] [address] Social History Tobacco Use Types Packs/Day Years Used Date Smoking Tobacco: Never Assessed Sex Assigned at Date Recorded Not on file documented as of this encounter Plan of Treatment Not on file documented as of this encounter Visit Diagnoses Not on filedocumented in this encounter Care Teams Luggage Repairer Relationship Specialty Start Date End Date Community, Pcp PCP - General Internal Medicine 07/16/17 09/07/17 Kadie Enamorado MD, MD PCP - General Internal Medicine 09/08/17 Kadie Enamorado MD, PCP - General 02/01/15 07/15/17 documented as of this encounter
--- OUTSIDE RECORDS SUMMARY | 2024-10-28 14:33 | XMS_ITS | Clinical Summary ---
Author Organization [facility] Address [address] [place] [address] Care Team Providers Care Automation Sales Manager Name Role Phone Frank Trejo MD Primary Care Provider [phone] Allergies Active Allergy Reactions Criticality Noted Date [...] each 08/22/2023 Active Global Ease Inject Pen [place] 31G X 5 MM MISC USE EVERY [...] Patient-Stated? Author Diet: Eat a well-balanced diet [facility] Improving( 12:43 PM EDT) No [...] following partially Medical Devices Implanted Type Area Security And Compliance Project Manager Device Identifier Shelf Expiration Date Model / Serial / Lot Shell D 50mm Primary Hemispherical Cluster Hole Tritanium - [id number] - [id number] Implanted:Qty: 1 on 08/29/2016 by Daniel Kapadia MD at [facility] and Med Left: Hip [employer] 08/04/2021 [id number] / / [id number] Screw Trident Secur-Fit Torx 30mm 6.5mm Titanium Bone - [id number] - [id number] Implanted:Qty: 1 on 08/29/2016 by Daniel Kapadia MD at [facility] and Med Left: Hip [employer] 06/02/2021 [id number] 1 / / [id number] Screw Trident 25mm 6.5mm Titanium Acetabular Cancellous - [id number] - [id number] Implanted:Qty: 1 on 08/29/2016 by Daniel Kapadia MD at [facility] and [facility] Left: Hip [employer] 07/17/2021 [id number] 1 / / [id number] Insert Trident 10d D 32mm X3 Acetabular Hip - [id number] - [id number] Implanted:Qty: 1 on 08/29/2016 by Daniel Kapadia MD at [facility] and [facility] Left: Hip [employer] 07/16/2021 [id number] / / [id number] Stem Accolade Ii 127d 2 Femoral Hip - [id number] - [id number] Implanted:Qty: 1 on 08/29/2016 by Daniel Kapadia MD at [facility] and [facility] Left: Hip [employer] 01/11/2018 [id number] / / [id number] 8103 Head V40 -4mm 32mm Biolox Delta Femoral Hip - [id number] - [id number] Implanted:Qty: 1 on 08/29/2016 by Daniel Kapadia MD at [facility] and [facility] Left: Hip [employer] 01/22/2021 [id number] / / [id number] Advance Directives For more information, please contact: [phone] Documents on File Type Date Recorded Patient Web User Experience Strategist Expl anation Advance Directive and Living Will [...] patient at her preop appointment. Care Teams Automation Sales Manager Relationship Specialty Start Date End Date Frank Trejo MD PCP - General Family Medicine 03/19/22
--- OUTSIDE RECORDS SUMMARY | 2024-10-28 14:33 | XMS_ITS | Encounter Summary ---
Author Organization [facility] Address [address] [place] [address] Care Team Providers Care Wedding Planning Internship Name Role Phone Kadie Enamorado Md, MD Primary Care Provider Miley vailable Reason for Visit * Reason Comments E-prescribe Rx Request Encounter Details Date Type Department Care Team Description 02/25/2018 Refill Pulmonology - [address] [place] [address] Shania Basilio NP E-prescribe Rx Request Social History Tobacco Use Types Packs/Day Years Used Date Smoking Tobacco: Never Smokeless Tobacco: Never Alcohol Use Standard Drinks/Week Comments Yes 0 (1 standard drink = 0.6 oz pur e alcohol) Sex Assigned at Date Recorded Not on file documented as of this encounter Miscellaneous Notes * Telephone Encounter - Lilli Prado - 02/25/2018 8:39 AM EDT Patient would like script to be: E-PRESCRIBED/FAXED TO PHARMACY WHEN WAS THE PATIENT'S LAST APPOINTMENT WITH THE PRESCRIBING PROVIDER? 01/06/18 Does patient have an upcoming appointment? Yes (THE MEDICATION REQUESTED IS ON THE MED LIST ABOVE) All of the medications requested were on the CURRENT MEDS list Did you check the Pharmacy information above?: YES Patient wants: 90 -day supply Is this a mail order prescription request ? NO Patients current insurance carrier is: [place] / [place]: [place] / Product Type: MEDICARE [id number] documented in this encounter Plan of Treatment Not on file documented as of this encounter Visit Diagnoses Diagnosis Asthma, unspecified asthma severity, unspecified whether complicated, unspecified whether persistent Allergic rhinitis, unspecified chronicity, unspecified seasonality, unspecified trigger Elevated blood pressure reading Elevated blood pressure reading without diagnosis of hypertension Shortness of breath on exertion Shortness of breath History of pulmonary embolism Personal history of pulmonary embolism documented in this encounter Care Teams Wedding Planning Internship Relationship Specialty Start Date End Date Kadie Enamorado MD, MD PCP - General Internal Medicine 09/08/17 documented as of this encounter
--- OUTSIDE RECORDS SUMMARY | 2024-10-28 14:33 | XMS_ITS | Encounter Summary ---
Author Organization [facility] Address [address] [place] [address] Care Team Providers Care Regional Property Manager Name Role Phone Kadie Enamorado Md, MD Primary Care Provider Miley vailable Reason for Visit * Reason Comments E-prescribe Rx Request Encounter Details Date Type Department Care Team Description 05/30/2020 Refill Pulmonology - [place] 175 [facility] [address] [place] [address] Kimo Anderson MD [address] [place] [id number] E-prescribe Rx Request Social History Tobacco Use Types Packs/Day Years Used Date Smoking Tobacco: Never Smokeless Tobacco: Never Alcohol Use Standard Drinks/Week Comments Yes 0 (1 standard drink = 0.6 oz pur e alcohol) Sex Assigned at Date Recorded Not on file documented as of this encounter Miscellaneous Notes * Telephone Encounter - Phoebe Wu - 06/07/2020 3:17 PM EST ARACELI: 07/12/2019 NOV: 07/26/2020 90 day supply. documented in this encounter Plan of Treatment Not on file documented as of this encounter Visit Diagnoses Diagnosis Asthma, unspecified asthma severity, unspecified whether complicated, unspecified whether persistent Allergic rhinitis Allergic rhinitis, cause unspecified Elevated blood pressure reading Elevated blood pressure reading without diagnosis of hypertension Shortness of breath on exertion Shortness of breath History of pulmonary embolism Personal history of pulmonary embolism documented in this encounter Care Teams Regional Property Manager Relationship Specialty Start Date End Date Kadie Enamorado MD, MD PCP - General Internal Medicine 09/08/17 documented as of this encounter
--- OUTSIDE RECORDS SUMMARY | 2024-10-28 14:33 | XMS_ITS | Clinical Summary ---
Author Organization [facility] Certified Flex Endoscope Reprocessor [place] Address [address] [place] [address] Phone Care Team Providers Care Rotor Balancer Name Role Phone Frank Trejo MD Primary Care Provider [phone] Allergies Active Allergy Reactions Criticality Noted Date [...] of chest pain 09/06/2024 COPD (chronic obstructive pu lmonary disease) ([facility] V[facility]) 09/04/2023 Urinary incontinence 09/04/2023 Anemia 03/19/2022 BP (high blood pressure) 03/19/2022 Disorder of intervertebral disc 03/19/2022 Gastroesophageal reflux disease 03/19/2022 Iron deficiency anemia 03/19/2022 Neuropathy 03/19/2022 Osteoarthritis 03/19/2022 Pulmonary embolism ([facility], [facility] V[facility]) COVID-19 11/09/2021 Type 2 diabetes mellitus wit hout complication, without long-term current use of insulin ([facility], [facility] V[facility]) 08/13/2018 Knee joint stiffness, bilateral 07/15/2018 Lumbar back pain 04/17/2018 Dyspnea on exertion 02/05/2018 Precordial chest pain 02/05/2018 Aortic valve sclerosis 08/11/2017 Diastolic dysfunction 08/11/2017 Right hip pain 05/28/2017 Asthma 03/24/2017 CKD (chronic kidney disease) stage 3, GFR 30-59 ml/min ([facility]) 08/12/2016 Diabetes mellitus due to und erlying condition with hyperglycemia, without long-term current use of insulin ([facility], [facility]) 08/12/2016 Essential hypertension, benign 08/12/2016 Mitral valve annular calcification 08/12/2016 Mixed hyperlipidemia 08/12/2016 Encounters Date Type Department Care Team Description 09/06/2024 12:00 PM EST Office Visit [facility] [place] [facility] [place] [address] [address] Rashid Edwards MD Dyspnea, unspecified type (Primary Dx); Essential hypertension, benign; Chronic obstructive pulmonary disease, unspecified COPD type ([facility]); Mixed hyperlipidemia from Last 3 Months Immunizations Name Administration Dates Next Due Influenza Quadravalent, 0.5ml (Fluad) 65yo and o lder 04/19/2021 Surgical History Surgery Date Site/Laterality Comments APPENDECTOMY PROCEDURE:APPENDECTOMY SPINAL FUSION May 2014 PROCEDURE:SPINAL FUSION;COMMENT:L4-5 TOTAL KNEE ARTHROPLASTY February 2015 Left PROCEDURE:TOTAL KNEE ARTHROPLASTY TOTAL KNEE ARTHROPLASTY Right PROCEDURE:TOTAL KNEE ARTHROPLASTY OTHER SURGICAL HISTORY PROCEDURE:GASTRIC POLYP EYE SURGERY PROCEDURE:EYE SURGERY;COMMENT:CATARACT OTHER SURGICAL HISTORY PROCEDURE:NV PELVIC EXAMINATION W/ANESTHESIA OTHER THAN LOCAL;COMMENT:TUBAL LIGATION CARDIAC CATHETERIZATION 2009 PROCEDURE:CARDIAC CATHETERIZATION HAND SURGERY Left PROCEDURE:HAND SURGERY;COMMENT:CTS BREAST SURGERY Right PROCEDURE:BREAST SURGERY;COMMENT:BX TONSILLECTOMY PROCEDURE:TONSILLECTOMY JOINT REPLACEMENT PROCEDURE:JOINT REPLACEMENT TOTAL HIP ARTHROPLASTY 08/29/2016 Left PROCEDURE:TOTAL HIP ARTHROPLASTY;COMMENT:Procedure: REPLACEMENT TOTAL HIP; Surgeon: Daniel Kapadia MD; [facility]: [facility] Service: Orthopedics; Laterality: Left; Medical History Medical History Date Comments Hypertension DX:Hypertension Hyperlipidemia DX:Hyperlipidemi a Diabetes ([facility]) DX:Diabetes ([facility]) Osteoarthritis DX:Osteoarthriti s History of cardiac catheterization December 2009 DX:History of cardiac catheterization;COMMENT:No critical CAD normal LV function. Pulmonary embolism ([facility], [facility]) DX:Pulmonary embolism ([facility]) SPRINGER (dyspnea on exertion) DX:SPRINGER (dyspnea on exertion) COPD (chronic obstructive pu lmonary disease) ([facility], [facility]) DX:COPD (chronic o bstructive pulmonary disease) ([facility]) GERD (gastroesophageal reflux disease) DX:GERD (gastroesophageal reflux disease) Diabetes mellitus, type II ( [facility], [facility]) DX:Diabetes mellitus, type I I ([facility]) Peripheral neuropathy DX:Periphe ral neuropathy Anemia DX:Anemia [...] Asthma 03/24/2017 DX:Asthma Diabetes mellitus type 2, un complicated ([facility] V28) 02/12/2017 DX:Diabetes mellitus type 2 , uncomplicated (HCC) History of pulmonary embolism 03/25/2017 DX :History [...] EDT Office Visit [facility] [place] [address] [facility] [address] [place] [phone] Moisés Long MD 19 [facility] [address] [place] [address] 03/24/2025 11:30 AM EDT Office Visit Pulmonolgy - [place] 175 [facility] [address] [place] [address] Kimo Anderson MD 175 [facility] [address] [place] [address] Health Maintenance Due Date Last Done Comments [...] Health Maintenance Results * Lipid panel (06/24/2023) LDL/HDL Ratio 4 Triglycerides 451 mg/dL Cholesterol 141 mg/dL HDL 39 mg/dL LDL Cholesterol 65 mg/dL Blood Venous blood specimen / Unknown [facility] Provider LAB BLOOD ORDERABLES Dalila l Result * Hemoglobin A1c (06/19/2023) Pathologist [facility] Hemoglobin A1C 7.2 % Blood Venous blood specimen / Unknown [facility] Provider LAB BLOOD ORDERABLES Dalila l Result * Urine Albumin Creatinine Ratio (02/22/2022) Pathologist [facility] Urine Albumin Creatinine Ratio Abstracted Result [facility] Provider HEALTH MAINTENANCE Final Result * Annual BMP Blood Test (11/09/2021) Pathologist [facility] Annual BMP Blood Test Abstracted [facility] Provider HEALTH MAINTENANCE Final Result * Diabetes Eye Exam (01/31/2021) Diabetes: Annual Retina Eye Exam Abstracted Historical Provider HEALTH MAINTENANCE Final Result from Last 3 Months or Most Recently Relevant to Health Maintenance Insurance MEDICARE [facility] Advance Directives Documents on File Type Date Recorded Patient Packer Operator Automatic Expl anation Health Care Decision (hx) 02/21/2015 [...] (hx) 02/16/2015 AD CALDERON DIRECTIVE Care Teams Rotor Balancer Relationship Specialty Start Date End Date Frank Trejo MD PCP - General Family Medicine 03/19/22
== END 2024-10-28 13:08 | disposition home or self-care (01) ==
LOC: HO.PMCPRC 11:38
PROVIDERS: Visit Provider Internal Medicine
DX: M25.562 Pain in left knee (principal); M25.561 Pain in right knee; G89.28 Other chronic postprocedural pain; Z96.653 Presence of artificial knee joint, bilateral
CPT/HCPCS: 64555

== ENCOUNTER 2024-11-05 10:16 | Outpatient (AMB) | payer MEDICARE, SELFPAY ==
--- NOTE | 2024-11-05 10:19 | A.OFFVIS_ITS ---
Vital Signs 11/05/24 10:21 Height 4 ft 10 in Weight 143 lb BMI 29.9 BP 140/96 H Blood Pressure Location Lt brachial Position Sitting Respiration 16 Pulse 82 Pulse Source Pulse Oximeter Pulse Oximetry (%) 95 Oxygen Delivery Method Room Air Intake Visit Reasons: s/p left saphenous Sprint Legal Investigator Required: No Allergies lisinopril Allergy (Mild, Verified 11/05/24 10:27) unknown oxycodone [From Tylox] Allergy (Mild, Verified 11/05/24 10:27) unknown Medication List - Last Reconciled 11/05/24 by Juanis Gilliland LPN acetaminophen (Tylenol) 650 mg PO Q6H PRN albuterol sulfate 90 mcg/actuation inhalation amoxicillin 2,000 mg (4 x 500 mg) PO ONCE 1 day atorvastatin 40 mg PO DAILY carvedilol 6.25 mg PO BID cholecalciferol (vitamin D3) (Vitamin D3) 25 mcg PO DAILY dulaglutide (Trulicity) 3 mg subcut QWEEK fenofibrate 160 mg PO DAILY flash glucose sensor (FreeStyle Renaldo 2 Sensor kit) As directed gabapentin 200 mg (2 x 100 mg) PO BEDTIME glipizide ER 10 mg PO DAILY hydrochlorothiazide 25 mg PO DAILY insulin admin supplies As directed insulin glargine U-300 conc (Toujeo Max U-300 SoloStar) 26 units subcut DAILY lidocaine 5% leave on most painful area for up to 12 hrs topical losartan 100 mg PO DAILY multivitamin 1 tab PO DAILY omeprazole 20 mg PO DAILY HPI HPI s/p left saphenous Sprint: Details: History of Present Illness The patient is an 84-year-old female presenting for follow-up after the recent placement of a temporary saphenous marrow stimulator to manage knee pain. The procedure intended to alleviate chronic knee pain has resulted in notable improvement, with the patient reporting a pain reduction of approximately 50%. She notes the stimulator has been set at 50 vibrations. Known for her understanding of sterile goznalez due to her previous experiences, she mistakenly crossed a sterile field but now expresses comfort and understanding about the proper handling post-procedure. Since the procedure, she has resumed walking, albeit cautiously, as she does not wish to displace the device wire. She intends to continue acupuncture therapy but has been guided to ensure needles are not applied to the directly affected leg. The device is adjusted appropriately based on need and guidance. The patient is following regular sleeping habits, generating reassurance that the stimulator is not required operationally during rest. Planned reviews include an evaluation of stimulator effectiveness and the eventual removal of the wire with no anticipated difficulty or pain. She conveys satisfaction with improvements and is well informed about continuing care and device considerations. Pain Description - Onset and Timing: Following stimulator placement, significant improvement noticed within one week. - Location: Knee - Quality and Character: Pain significantly reduced, approximately 50% improvement. - Exacerbating Factors: Concern over dislodging wire with certain activities. - Relieving Factors: Use of stimulator at 50 vibrations has been effective. - Activities: Walking resumed, though cautiously. Physical Exam Lead insertion site is clean dry and intact. Pain Management - Affect: Patient expresses satisfaction at improvements in pain, noting the device's positive impact. - Analgesia: Significant reduction in knee pain, estimated at 50% improvement. No specific medications discussed. - Adverse Effects: No adverse effects are reported. - Activities of Daily Living: Has resumed walking, managed activities without major limitations. - Aberrant Drug Related Behaviors: No signs of medication misuse. [facility] Surgical History History of hip surgery History of hip surgery Hx of knee surgery History of back surgery History of left knee surgery (~2013) Social History Patient Tobacco Use Status: Never used Tobacco Current occupational status: retired Current occupation: Left hand dominate Physical Exam Vital Signs: Last Vital Signs Pulse 82 11/05/24 10:21 Resp 16 11/05/24 10:21 BP 140/96 H 11/05/24 10:21 Pulse Ox 95 11/05/24 10:21 Oxygen Delivery Method Room Air 11/05/24 10:21 BMI result Body Mass Index 29.9 Assessment & Plan Assessment & Plan (1) Chronic knee pain after total replacement of both knee joints: Code(s): M25.561 - Pain in right knee; M25.562 - Pain in left knee; G89.28 - Other chronic postprocedural pain; Z96.653 - Presence of artificial knee joint, bilateral Category: Medical Plan Plan - Maintain vigilance with stimulator use, integrating regular activities cautiously. - Schedule acupuncture and massage therapy around device use with care not to aggravate site. - Ensure patient understanding and capability in device application during daily routine. - Prepare for December appointment for wire removal. Patient was informed and verbally consented to the use of an ambient scribe for clinic note documentation during this visit. Discussion Notes I discussed the use and benefits of the temporary saphenous marrow stimulator with the patient, emphasizing the noticeable improvement in knee pain reduction, which she estimated as 50%. We reviewed the functional activities she may continue and the care necessary to prevent device dislodgment. The patient was assured about activities, acupuncture, and massage as long as particular areas are avoided or devices are turned off. Sleeping with the device off is acceptable. We also outlined plans for monitoring the device's ongoing effectiveness, its eventual removal, and the positive outcomes likely with the current treatment course. Patient Instructions - Continue using the stimulator as directed. - Avoid using acupuncture needles on the affected leg when the stimulator is on. - You may turn off the device during sleep. - Follow regular activities without over-exertion. - Schedule to attend the scheduled wire removal appointment in December. - Call if pain worsens or if there are concerns about the device. Coding Level of Care Code Est Pt Level 3 (67234) Diagnoses Chronic knee pain after total replacement of both knee joints M25.561; M25.562; G89.28; Z96.653
[2024-11-05 10:21] VITALS: BP 140/96; PULSE 82; RESP 16; O2SAT 95; BMI 29.9
--- OUTSIDE RECORDS SUMMARY | 2024-11-05 10:42 | XMS_ITS | Encounter Summary ---
Author Organization [facility] Address [address] [place] [address] Care Team Providers Care Senior Payroll Administrator Name Role Phone Kadie Enamorado Md, MD Primary Care Provider Miley vailable Encounter Details Date Type Department Care Team Description 09/26/2020 Orders Only Pulmonology - [place] 175 [facility] [address] [place] [address] Kimo Anderson MD [address] [place] [address] Asthma, unspecified asthma severity, unspecified [...] Procedure Name Priority Date/Time Associated Diagnosis Comments [place] NONINVASIVE EAR/PULSE OXIMETRY OVERNIGHT MONITOR Routine 07/28/2020 Asthma, unspecified asthma severity, unspecified whether complicated, unspecified whether persistent Shortness of breath documented in this encounter Results * OXIMETRY,OVERNITE (07/28/2020) Kimo Anderson MD PERFORMABLES documented in this encounter Visit Diagnoses Diagnosis Asthma, unspecified asthma severity, unspecified whether complicated, unspecified whether persistent Shortness of breath documented in this encounter Care Teams Senior Payroll Administrator Relationship Specialty Start Date End Date Kadie Enamorado MD, MD PCP - General Internal Medicine 09/08/17 documented as of this encounter
--- OUTSIDE RECORDS SUMMARY | 2024-11-05 10:42 | XMS_ITS | Encounter Summary ---
Author Organization [facility] Address [address] [place] [address] Care Team Providers Care Asp Net Programmer Name Role Phone Kadie Enamorado Md, MD Primary Care Provider Miley vailable Reason for Visit * Reason Comments E-prescribe Rx Request Encounter Details Date Type Department Care Team Description 05/30/2020 Refill Pulmonology - [place] [address] [facility] [address] [place] [address] Kimo Anderson MD [address] [place] [phone] E-prescribe Rx Request Social History Tobacco Use [...] embolism documented in this encounter Care Teams Asp Net Programmer Relationship Specialty Start Date End Date Kadie Enamorado MD, MD PCP - General Internal Medicine 09/08/17 documented as of this encounter
--- OUTSIDE RECORDS SUMMARY | 2024-11-05 10:42 | XMS_ITS | Clinical Summary ---
Author Organization [facility] Address [address] [place] [address] Care Team Providers Care Rotary Drill Operator Helper Name Role Phone Frank Trejo MD Primary Care Provider [phone] Allergies Active Allergy Reactions Criticality Noted Date [...] each 08/22/2023 Active Global Ease Inject Pen Horner 31G X 5 MM MISC USE EVERY [...] Patient-Stated? Author Diet: Eat a well-balanced diet [facility] Improving( 12:43 PM EDT) No Jenny Ness, [...] following partially Medical Devices Implanted Type Area Interactive Video Technician Device Identifier Shelf Expiration Date Model / Serial / Lot Shell D 50mm Primary Hemispherical Cluster Hole Tritanium - [id number] - [id number] Implanted:Qty: 1 on 08/29/2016 by Daniel Kapadia MD at [facility] Left: Hip [employer] 08/04/2021 [id number] / / [id number] Screw Trident Secur-Fit Torx 30mm 6.5mm Titanium Bone - [id number] - [id number] Implanted:Qty: 1 on 08/29/2016 by Daniel Kapadia MD at [facility] Left: Hip [employer] 06/02/2021 [id number] 1 / / [id number] Screw Trident 25mm 6.5mm Titanium Acetabular Cancellous - [id number] - [id number] Implanted:Qty: 1 on 08/29/2016 by Daniel Kapadia MD at [facility] Left: Hip [employer] 07/17/2021 [id number] 1 / / [id number] Insert Trident 10d D 32mm X3 Acetabular Hip - [id number] - [id number] Implanted:Qty: 1 on 08/29/2016 by Daniel Kapadia MD at [facility] Left: Hip [employer] 07/16/2021 [id number] / / [id number] Stem Accolade Ii 127d 2 Femoral Hip - [id number] - [id number] Implanted:Qty: 1 on 08/29/2016 by Daniel Kapadia MD at [facility] Left: Hip [employer] 01/11/2018 [id number] / / [id number] Head V40 -4mm 32mm Biolox Delta Femoral Hip - [id number] - [id number] Implanted:Qty: 1 on 08/29/2016 by Daniel Kapadia MD at [facility] Left: Hip [employer] 01/22/2021 [id number] / / [id number] Advance Directives For more information, please contact: [phone] Documents on File Type Date Recorded Patient Molding Machine Setter Expl anation Advance Directive and Living Will [...] patient at her preop appointment. Care Teams Rotary Drill Operator Helper Relationship Specialty Start Date End Date Frank Trejo MD PCP - General Family Medicine 03/19/22
--- OUTSIDE RECORDS SUMMARY | 2024-11-05 10:42 | XMS_ITS | Encounter Summary ---
Author Organization [facility] Address [address] [place] [address] Care Team Providers Care Net Developer Consultant Name Role Phone Kadie Enamorado Md, MD Primary Care Provider Miley vailable Encounter Details Date Type Department Care Team Description 09/18/2017 Transfer Records Medical Records [address] [place] [id number] Abstract, Provider Social History Tobacco Use Types Packs/Day Years Used Date Smoking Tobacco: Never Alcohol Use Standard Drinks/Week Comments Yes 0 (1 standard drink = 0.6 oz pur e alcohol) Sex Assigned at Date Recorded Not on file documented as of this encounter Plan of Treatment Not on file documented as of this encounter Visit Diagnoses Not on filedocumented in this encounter Care Teams Net Developer Consultant Relationship Specialty Start Date End Date Kadie Enamorado MD, MD PCP - General Internal Medicine 09/08/17 documented as of this encounter
--- OUTSIDE RECORDS SUMMARY | 2024-11-05 10:42 | XMS_ITS | Clinical Summary ---
Author Organization [facility] [place] Address [address] [place] [address] Phone Care Team Providers Care Retail Selling Specialist Name Role Phone Frank Trejo MD Primary Care Provider [phone] Allergies Active Allergy Reactions Criticality Noted Date [...] 09/06/2024 COPD (chronic obstructive pu lmonary disease) ([facility], [facility]) 09/04/2023 Urinary incontinence 09/04/2023 Anemia 03/19/2022 BP (high blood pressure) 03/19/2022 Disorder of intervertebral disc 03/19/2022 Gastroesophageal reflux disease 03/19/2022 Iron deficiency anemia 03/19/2022 Neuropathy 03/19/2022 Osteoarthritis 03/19/2022 Pulmonary embolism ([facility], [facility] V[facility]) COVID-19 11/09/2021 Type 2 diabetes mellitus wit hout complication, without long-term current use of insulin ([facility], [facility] V28) 08/13/2018 Knee joint stiffness, bilateral 07/15/2018 Lumbar back pain 04/17/2018 Dyspnea on exertion 02/05/2018 Precordial chest pain 02/05/2018 Aortic valve sclerosis 08/11/2017 Diastolic dysfunction 08/11/2017 Right hip pain 05/28/2017 Asthma 03/24/2017 CKD (chronic kidney disease) stage 3, GFR 30-59 ml/min ([facility], [facility] V[facility]) 08/12/2016 Diabetes mellitus due to und erlying condition with hyperglycemia, without long-term current use of insulin ([facility], [facility] V28) 08/12/2016 Essential hypertension, benign 08/12/2016 Mitral valve annular calcification 08/12/2016 Mixed hyperlipidemia 08/12/2016 Encounters Date Type Department Care Team Description 09/06/2024 12:00 PM EST Office Visit [facility] [place] [facility] [place] [address] [address] Rashid Edwards MD Dyspnea, unspecified type (Primary Dx); Essential hypertension, benign; Chronic obstructive pulmonary disease, unspecified COPD type ([facility], [facility] V28); Mixed hyperlipidemia from Last 3 Months [...] EYE SURGERY PROCEDURE:EYE SURGERY;COMMENT:CATARACT OTHER SURGICAL HISTORY PROCEDURE:CO PELVIC EXAMINATION W/ANESTHESIA OTHER THAN LOCAL;COMMENT:TUBAL LIGATION CARDIAC CATHETERIZATION 2009 PROCEDURE:CARDIAC CATHETERIZATION HAND SURGERY Left PROCEDURE:HAND SURGERY;COMMENT:CTS BREAST SURGERY Right PROCEDURE:BREAST SURGERY;COMMENT:BX TONSILLECTOMY PROCEDURE:TONSILLECTOMY JOINT REPLACEMENT PROCEDURE:JOINT REPLACEMENT TOTAL HIP ARTHROPLASTY 08/29/2016 Left PROCEDURE:TOTAL HIP ARTHROPLASTY;COMMENT:Procedure: REPLACEMENT TOTAL HIP; Surgeon: Daniel Kapadia MD; Location: [facility] Service: Orthopedics; Laterality: Left; Medical History Medical History Date Comments Hypertension DX:Hypertension Hyperlipidemia DX:Hyperlipidemi a Diabetes ([facility], [facility] V[facility]) DX:Diabetes ([facility]) Osteoarthritis DX:Osteoarthriti s History of cardiac catheterization December 2009 DX:History of cardiac catheterization;COMMENT:No critical CAD normal LV function. Pulmonary embolism ([facility], [facility] V28) DX:Pulmonary embolism ([facility]) SPRINGER (dyspnea on exertion) DX:SPRINGER (dyspnea on exertion) COPD (chronic obstructive pu lmonary disease) ([facility] V[facility], [facility] V[facility]) DX:COPD (chronic o bstructive pulmonary disease) ([facility]) GERD (gastroesophageal reflux disease) DX:GERD (gastroesophageal reflux disease) Diabetes mellitus, type II ( [facility], [facility] V[facility]) DX:Diabetes mellitus, type I I ([facility]) Peripheral neuropathy DX:Periphe ral neuropathy Anemia DX:Anemia [...] DX:Asthma Diabetes mellitus type 2, un complicated ([facility] V24, [facility] V28) 02/12/2017 DX:Diabetes mellitus type [...] EDT Office Visit [facility] [place] [facility] [place] [address] [facility] [address] [place] [phone] Moisés Long MD [address] [facility] [address] [place] [address] 03/24/2025 11:30 AM EDT Office Visit Pulmonolgy - [place] 175 [facility] [address] [place] [address] Kimo Anderson MD 175 [facility] [address] [place] [address] Health Maintenance Due Date Last Done Comments [...] mg/dL Blood Venous blood specimen / Unknown [facility] Provider LAB BLOOD ORDERABLES Dalila l Result * Hemoglobin A1c (06/19/2023) Pathologist [facility] Hemoglobin A1C 7.2 % Blood Venous blood specimen / Unknown [facility] Provider LAB BLOOD ORDERABLES Dalila l Result * Urine Albumin Creatinine Ratio (02/22/2022) Pathologist [facility] Urine Albumin Creatinine Ratio Abstracted Result [facility] Provider HEALTH MAINTENANCE Final Result * Annual BMP Blood Test (11/09/2021) Pathologist [facility] Annual BMP Blood Test Abstracted [facility] Provider HEALTH MAINTENANCE Final Result * Diabetes Eye Exam (01/31/2021) Diabetes: Annual Retina Eye Exam Abstracted Historical Provider HEALTH MAINTENANCE Final Result from Last 3 Months or Most Recently Relevant to Health Maintenance Insurance MEDICARE [facility] Advance Directives Documents on File Type Date Recorded Patient Machine Quilt Stuffer Expl anation Health Care Decision (hx) 02/21/2015 [...] (hx) 02/16/2015 AD CALDERON DIRECTIVE Care Teams Retail Selling Specialist Relationship Specialty Start Date End Date Frank Trejo MD PCP - General Family Medicine 03/19/22
--- OUTSIDE RECORDS SUMMARY | 2024-11-05 10:42 | XMS_ITS | Encounter Summary ---
Author Organization [facility] Address [address] [place] [address] Care Team Providers Care Double Cutter Name Role Phone Kadie Enamorado Md, MD Primary Care Provider Miley vailable Reason for Visit * Reason Comments E-prescribe Rx Request Encounter Details Date Type Department Care Team Description 02/24/2018 Refill Pulmonology - [address] [place] [address] Shania Basilio NP E-prescribe Rx Request Social History Tobacco Use Types Packs/Day Years Used Date Smoking Tobacco: Never Smokeless Tobacco: Never Alcohol Use Standard Drinks/Week Comments Yes 0 (1 standard drink = 0.6 oz pur e alcohol) Sex Assigned at Date Recorded Not on file documented as of this encounter Miscellaneous Notes * Telephone Encounter - Lilli Prado - 02/24/2018 8:26 AM EDT Patient would like script to [...] / Plan[place] / Product Type: MEDICARE [id number] documented in this encounter Plan of Treatment Not on file documented as of this encounter Visit Diagnoses Not on filedocumented in this encounter Care Teams Double Cutter Relationship Specialty Start Date End Date Kadie Enamorado MD, MD PCP - General Internal Medicine 09/08/17 documented as of this encounter
--- OUTSIDE RECORDS SUMMARY | 2024-11-05 10:42 | XMS_ITS | Data Portability ---
Author Organization [place] - [place] [facility] AD[facility] Address [address] [place] [address] Care Team Providers Care Escrow Secretary Name Role Phone DAIN BONILLA Pesticide Chemist FRANK MEHTA Referring Provider FRANK MEHTA Primary Care Provider SAMSON ODEN Game Technician ABRIL CHIN Franchise Specialist Assessment Encounter Date Assessment Date Assessment LastModified [...] glucose, fingerst ick, blood 2024 [id number] [email or web address] [facility], [address], [place], [address], 08/18/2024 08:38:32 Referral None recorded . Procedures None recorded . Surgeries None recorded . Imaging None recorded . Medication Orders None recorded . Patient TargetsNo targets recorded. Patient Instructions Encounter Date Encounter Id Patient Instructions Last Modified By Organization Details Last Modified Time 09/16/2024 [id number] well visit, over 65: care instructions Not available 09/16/2024 14:09:05 medicare preventive services guide Not available 09/16/2024 14:09:05 Reason for Referral None Reported. Results Created Date Observation Date Name Description Value Unit Range Abnormal Flag Note LastModifiedBy Organization Detail LastModifiedTime 08/17/1908/17/2024 gluco se, daron rssulma k, blood Blood Glucose: mg/dl 181 Not Available [facility] [address], [place], [address], 08/11/2024 10:37:49 Result Notes None recorded. Problems Name Problem SNOMED Code Status Onset Date Resolution Date Notes Provider Name and Address Organization Details Recorded Time Benign essential hypertens ion 3331502 Active 2016 Essential hypertens ion, benign Not Available [facility] 4 09:37:52 Precordia l pain 83412073 Active 2017 Precordia l chest pain Not Available [facility] 4 09:37:53 Secondary diabetes mellitus 2920633 Active 2016 Diabetes mellitus due to underlyin g condition with hyperglyc emia, without long-term current use of insulin Not Available [facility] 4 09:37:53 Diastolic dysfuncti on 2887453 Active 2017 Diastolic dysfuncti on Not Available [facility] 4 09:37:53 Bilateral stiffness of knee joints 24503921309 791305 Active 2018 Knee joint stiffness , bilateral Not Available [facility] 4 09:37:53 Biliary calculus 857320890 Active 2023 Cholelith iases Not Available [facility] 4 09:37:53 Arthropat hy 895502181 Active 2014 Arthropat hy Not Available [facility] 4 09:37:53 History of pulmonary embolus 468960291 Active 2016 History of pulmonary embolism Not Available [facility] 4 09:37:53 Chronic obstructi ve pulmonary disease 56480908 Active 2022 COPD (chronic obstructi ve pulmonary disease) Not Available [facility] 4 09:37:54 Low back pain 221164478 Active 2017 Lumbar back pain Not Available [facility] 4 09:37:54 History of arthropla sty of left knee 21973135639 77745 Active 2023 History of arthropla sty of left knee Not Available [facility] 4 09:37:54 Neuropath y 592013128 Active 2021 Neuropath y Not Available [facility] 4 09:37:54 Mitral valve annular calcifica tion 010933915 Active 2016 Mitral valve annular calcifica tion Not Available [facility] 4 09:37:54 Mixed hyperlipi demia 605576748 Active 2016 Mixed hyperlipi demia Not Available [facility] 4 09:37:54 Gastroeso phageal reflux disease 302198902 Active 2021 Gastroeso phageal reflux disease Not Available [facility] 4 09:37:55 Hypertens toñito disorder 95093221 Active 2021 HTN (hyperten ann) Not Available [facility] 4 09:37:55 COVID-19 043770811 Active 2022 COVID-19 - Overview: Formattin g of this note might be different from the original. 11/09/2021 Not Available [facility] 4 09:37:55 Anxiety 32537175 Active 2023 Anxiety Not Available [facility] 4 09:37:55 Chronic kidney disease stage 3 220745181 Active 2016 CKD (chronic kidney disease) stage 3, GFR 30-59 ml/min Not Available [facility] 4 09:37:55 Asthma 699550040 Active 2016 Asthma Not Available [facility] 4 09:37:55 Iron deficienc y anemia 89036090 Active 2021 Iron deficienc y anemia Not Available [facility] 4 09:37:55 Dyspnea on exertion 52007316 Active 2017 Dyspnea on exertion Not Available [facility] 4 09:37:56 Pain in right hip joint 40797516107 9102 Active 2016 Right hip pain Not Available [facility] 4 09:37:56 Anemia 826413288 Active 2021 Anemia Not Available [facility] 4 09:37:56 Type 2 diabetes mellitus without complicat ion 843067695 Active 2018 Type 2 diabetes mellitus without complicat ion, without long-term current use of insulin Not Available [facility] 4 09:37:56 Intervert ebral disc disorder 14561984 Active 2021 Disorder of intervert ebral disc Not Available [facility] 4 09:37:56 Benign paroxysma l positiona l vertigo 533579284 Active 2014 BPV (benign positiona l vertigo) Not Available [facility] 4 09:37:57 Aortic valve sclerosis 22742533 Active 2017 Aortic valve sclerosis Not Available [facility] 4 09:37:57 Urinary incontine nce 955932610 Active 2022 Urinary incontine nce Not Available [facility] 4 09:37:57 Hyperglyc emia due to diabetes mellitus 403824510 Active 2016 Diabetes mellitus due to underlyin g condition with hyperglyc emia, without long-term current use of insulin Not Available [facility] 4 09:37:59 Hip pain 11108068 Active 2016 Right hip pain Not Available [facility] 4 09:38:00 Hyperglyc emia due to type 2 diabetes mellitus 45087086510 9109 Active 2024 Dain Bonilla MD [address] [place], [address] , [facility] 5 08:38:00 Notes:Some problems listed i n Documents: #[id number], #[id number] could not be added to this patient's chart. Please review these documents and add these problems to the patient's chart manually as needed. Problem Notes None recorded. Medical Equipment None Reported. Allergies Allergen ID Allergen Name Allergen Category Reaction Reaction Severity Criticality Documentation Date Start Date Code Code System Note Provider Name and Address Organization Details Recorded Time 26705 metformin medicatio n Not available Not available Not available 06/14/20242021 6809 RxNorm React ion: Diarr hea, sever ity: Unkno wn Not Available [facility] 19:24:31 88445 lisinopri l medicatio n Not available Not available Not available 06/14/20242015 71186 RxNorm React ion: Other (See Comme nts), sever ity: Unkno wn;CO UGH Not Available [facility] 4 19:24:31 72643 meloxicam medicatio n Not available Not available Not available 06/14/20242016 49134 RxNorm React ion: Palpi tatio ns, sever ity: Unkno wn;GI upset Not Available [facility] 4 19:24:32 82858 tramadol medicatio n Not available Not available Not available 06/14/20242015 04551 RxNorm React ion: Nause a Only, sever ity: Unkno wn Not Available [facility] 4 19:24:32 56737 midazolam medicatio n Not available Not available Not available 06/14/20242016 6960 RxNorm [facility] PS Not Available [facility] 4 19:24:32 00973 bacitraci n medicatio n Not available Not available Not available 06/14/20242015 1291 RxNorm React ion: Rash, sever ity: Unkno wn Not Available [facility] 4 19:24:32 52398 ondansetr on medicatio n Not available Not available Not available 06/14/20242015 53474 RxNorm React ion: Itchi ng, sever ity: Unkno wn Not Available [facility] 4 19:24:32 15178 tyloxapol medicatio n Not available Not available Not available 06/14/20242015 86247 RxNorm React ion: Nause a And Vomit ing, sever ity: Unkno wn Not Available [facility] 4 19:24:32 40557 adhesive tape environme nt,medica tion Not available Not available Not available 06/14/20242014 16612 UNK Other react ion(s ): skin react ion Not Available [facility] 19:24:35 Medications Name Sig Start Date Stop [...] /min 97 % 97 % 28.6 kg/m2 83832.7 1 g 122 mm[Hg] 82 mm[Hg] Danamackenzie Wilson [place] [facility] 4 11:18:01 Date Recorded Body height Body mass index (BMI) Body weight Oxygen saturation Oxygen saturation in Arterial blood by Pulse oximetry Heart rate Systolic blood pressure Diastolic blood pressure Provider Name and Address Organization Details Last Updated DateTime 5 150.5 cm 28.6 kg/m2 14598.7 1 g 97 % 97 % 77 /min 146 mm[Hg] 64 mm[Hg] FELI HALEY [facility] [facility] 5 11:47:05 Date Recorded Body height Body mass index (BMI) Body weight Body temperature Oxygen saturation Oxygen saturation in Arterial blood by Pulse oximetry Heart rate Systolic blood pressure Diastolic blood pressure Provider Name and Address Organization Details Last Updated DateTime 5 150.5 cm 29.2 kg/m2 37290.4 9 g 97.3 [degF] 95 % 95 % 88 /min 132 mm[Hg] 78 mm[Hg] Dana Richardsillo [facility] [facility] 5 13:21:15 Social History Question Answer Notes LastModified by Organizat ion Details LastModified Time Tobacco Smoking Status Never Smoker Not Available [facility] 06/15/2024 19:14:52 Do You Have An [...] Or The Highest Degree You Have Received? [id number] Information not available 09/16/2024 Do You Have [...] Do You Have A Medical Power Of Community Health Counselor? Yes Information not available 09/16/2024 Do You [...] Anxious, Or Unable To Sleep At Night)? [id number] Information not available 09/16/2024 Do You Use [...] PF 1 completed Not Available [facility] 06/19/2024 02:33:00 pneumococcal, unspecified formulation 5 completed Not Available [facility] 06/19/2024 02:33:01 influenza, unspecified formulation 5 completed Not Available [facility] 06/19/2024 02:33:01 Past Encounters Encounter ID Performer Location Encounter Start Date Encounter Closed Date Diagnosis/Indication Diagnosis SNOMED-CT Code Diagnosis ICD10 Code Diagnosis Note [id number] [facility] [place] [address] [address] 06/18/2024 10:58:26 06/18/2024 13:00:48 Hypertensive disorder 90950964 I10 BP well-contr olled on current meds Mixed hyperlipidemia 267 530659 E78.2 Well-contr olled on current statin Secondary diabetes mellitus 2035433 E08.65 Sugars well-contr olled with last A1c at 7%. She is following with Endo and may need med adjustment as she is dipping low too often now. [id number] Dain Bonilla MD [facility] [address] [address] 08/17/2024 11:37:41 08/17/2024 12:25:00 Hyperglycemia due to type 2 diabetes mellitus 6557581120 05388 E11.65 Z79.4 Her last A1c level was [...] g insulin. And continue with the Trulicity. [id number] Frank Mehta MD [facility] [place] [address] [place] [address] 09/16/2024 12:54:38 09/16/2024 14:03:21 General examination of patient 509667827 Z00.00 Patient gets her mammo every year at [facility] radiology in [place]. No new concerns found with today's screenings . Asthma 863331978 J45.90 9 Some breathing issues that pulmonary states is not her lungs and must be cardiac. Cardiology states it is not her heart and must be her lungs. Inhalers have not been helpful. She is thinking of switching to a local pulmonolog ist. Benign ess ential hypertension 5483432 I10 BP well-contr olled on current meds Chronic ki dney disease stage 3 729576611 N18.30 Stable on recent blood work Type 2 ash betes mellitus without complication 915538471 E11.9 Sugars are well-contr olled and follows [...] [employer] OPTIONS (MEDICARE SUPPLEMENT) Alon Springer [id number] Alon Springer 06/18/2024 1 MEDICARE B-CT: NGS Alon Springer [id number] Alon Springer 08/17/2024 2 [employer] OPTIONS (MEDICARE SUPPLEMENT) Alon Springer [id number] Alon Springer 08/17/2024 1 MEDICARE B-CT: NGS Alon Springer [id number] Alon Springer 09/16/2024 2 [facility] HEALTHCARE OPTIONS (MEDICARE SUPPLEMENT) Alon Springer [id number] Alon Springer 09/16/2024 1 MEDICARE B-CT: NGS Alon Springer [id number] Alon Springer Notes Date Note Type Note [...] diabetes, hypertension, hyperlipidemia. Frank Mehta MD [address] [place], [address], [facility] 07/03/2024 11:50:48 08/17/19 25 text/htm l [...] fusion. Dain Bonilla MD [address] [place], [address], [facility] 08/18/2024 08:38:36 09/17/19 25 text/htm l [...] in Frank Mehta MD [address] [place], [address], [facility] 09/16/2024 14:12:28 OBGyn Episode No OBEpisode recorded.
== END 2024-11-05 11:00 | disposition home or self-care (01) ==
LOC: HO.PMC 10:17
PROVIDERS: PCP Family Medicine; Visit Provider Internal Medicine
DX: M25.561 Pain in right knee (principal); M25.562 Pain in left knee; G89.28 Other chronic postprocedural pain; Z96.653 Presence of artificial knee joint, bilateral
CPT/HCPCS: 99024

== ENCOUNTER → 2024-11-05 10:16 | Outpatient (BNVA) | payer MEDICARE, SELFPAY | PROVIDERS: PCP Family Medicine; Visit Provider Internal Medicine | DX: M25.561 Pain in right knee (principal); M25.562 Pain in left knee; G89.28 Other chronic postprocedural pain; Z96.653 Presence of artificial knee joint, bilateral | CPT/HCPCS: 99212 ==

== ENCOUNTER → 2024-12-24 11:35 | Outpatient (BNVA) | payer MEDICARE, SELFPAY | PROVIDERS: Visit Provider Internal Medicine | DX: Z13.89 Encounter for screening for other disorder (principal) ==